=== PATIENT | female | born 1960 | race Caucasian/White ===

== ENCOUNTER → 2023-07-21 06:24 | Outpatient (REF) | payer BC, SELFPAY ==
[2023-07-21 07:15] LABS: % Eosinophils 4.5 % (0-6); % Immature Granulocytes 0.2 % (0-0.5); % Lymphocytes 22.9 % (20.5-51.1); % Monocytes 5.6 % (1.7-9.3); % Neutrophils 65.8 % (42.2-75.2); Absolute Basophils 0.1 10^3/uL (0-0.2); Absolute Eosinophils 0.4 10^3/uL (0-0.7); Absolute Lymphocytes 2.2 10^3/uL (1.2-3.4); Absolute Monocytes 0.6 10^3/uL (0.1-0.6); Absolute Neutrophils 6.4 10^3/uL (1.4-6.5); Hematocrit 41.1 % (37.0-47.0); Hemoglobin 13.7 g/dL (12.0-16.0); Mean Corp Hgb Conc. 33.3 g/dL (33.0-37.0); Mean Corpuscular Hgb 32.7 pg (27.0-31.0); Mean Corpuscular Volume 98.1 fL (81.0-99.0); Mean Platelet Volume 11.6 fL (7.4-10.4); Nucleated Red Blood Cells % 0 %; Platelet Count 205 10^3/uL (130-400); Red Blood Cell Count 4.19 10^6/uL (4.20-5.40); Red Cell Dist. Width 14.8 % (11.5-14.5); White Blood Cell Count 9.8 10^3/uL (4.8-10.8)
[2023-07-21 07:47] LABS: ALT (SGPT) 45 U/L (0-35); AST (SGOT) 38 U/L (14-36); Albumin 4.5 g/dl (3.5-5.0); Alkaline Phosphatase 70 U/L (38-126); Blood Urea Nitrogen 17 mg/dl (7-17); Carbon Dioxide 28 mmol/L (22-30); Chloride 105 mmol/L (98-107); Glucose 109 mg/dl (70-99); HDL Cholesterol 80 mg/dl; LDL Cholesterol, Calculated 64 mg/dl; Potassium 5.2 mmol/L (3.5-5.1); Sodium 138 mmol/L (135-145); Total Bilirubin 0.4 mg/dl (0.2-1.3); Total Cholesterol 156 mg/dl (50-199); Total Protein 7.4 g/dl (6.3-8.2); Triglyceride 63 mg/dl (10-149); Very Low Density Lipoprotein 12 mg/dl (0-30); eGFR > 60.00
[2023-07-21 08:57] LABS: TSH Reflex To Free T4 0.06 uIU/ml (0.47-4.68)
[2023-07-21 09:27] LABS: Free T4 1.83 ng/dl (0.78-2.19)
== END ==
LOC: REG 06:24
PROVIDERS: ATTENDING PHYSICIAN Internal Medicine; FAMILY PHYSICIAN Nurse Practitioner Family
DX: Z00.00 Encounter for general adult medical examination without abnormal findings (principal); E03.9 Hypothyroidism, unspecified; I10 Essential (primary) hypertension
CPT/HCPCS: 36415; 80053; 80061; 84439; 84443; 85025

== ENCOUNTER → 2023-09-14 06:21 | Outpatient (REF) | payer BC, SELFPAY ==
[2023-09-14 09:08] LABS: TSH Reflex To Free T4 1.19 uIU/ml (0.47-4.68)
[2023-09-14 09:24] LABS: ALT (SGPT) 52 U/L (0-35); AST (SGOT) 38 U/L (14-36); Albumin 4.3 g/dl (3.5-5.0); Alkaline Phosphatase 74 U/L (38-126); Blood Urea Nitrogen 13 mg/dl (7-17); Calcium 10.1 mg/dl (8.4-10.2); Carbon Dioxide 29 mmol/L (22-30); Chloride 105 mmol/L (98-107); Glucose 115 mg/dl (70-99); Potassium 5.1 mmol/L (3.5-5.1); Sodium 141 mmol/L (135-145); Total Bilirubin 0.6 mg/dl (0.2-1.3); Total Protein 7.4 g/dl (6.3-8.2); eGFR > 60.00
== END ==
LOC: REG 06:21
PROVIDERS: ATTENDING PHYSICIAN Nurse Practitioner Family
DX: R79.89 Other specified abnormal findings of blood chemistry (principal); E03.9 Hypothyroidism, unspecified
CPT/HCPCS: 36415; 80053; 84443

== ENCOUNTER 2024-06-17 09:06 | Inpatient (IN) | payer OTHER, SELFPAY ==
[2024-06-17] VITALS (16 sets, daily range): BP systolic 56–151; BP diastolic 70–98; BMI 23.5
[2024-06-17 06:05] LABS: % Basophils 0.7 % (0-2); % Eosinophils 2.2 % (0-6); % Immature Granulocytes 0.3 % (0-0.5); % Lymphocytes 11.9 % (20.5-51.1); % Monocytes 7.2 % (1.7-9.3); % Neutrophils 77.7 % (42.2-75.2); Absolute Basophils 0.1 10^3/uL (0-0.2); Absolute Eosinophils 0.3 10^3/uL (0-0.7); Absolute Lymphocytes 1.6 10^3/uL (1.2-3.4); Absolute Neutrophils 10.6 10^3/uL (1.4-6.5); Hematocrit 36.9 % (37.0-47.0); Hemoglobin 12.9 g/dL (12.0-16.0); Mean Corpuscular Volume 94.4 fL (81.0-99.0); Mean Platelet Volume 11.3 fL (7.4-10.4); Nucleated Red Blood Cells % 0 %; Platelet Count 335 10^3/uL (130-400); Red Blood Cell Count 3.91 10^6/uL (4.20-5.40); Red Cell Dist. Width 12.8 % (11.5-14.5); White Blood Cell Count 13.6 10^3/uL (4.8-10.8)
[2024-06-17 06:23] LABS: ALT (SGPT) 57 U/L (0-35); AST (SGOT) 40 U/L (14-36); Albumin 3.7 g/dl (3.5-5.0); Alkaline Phosphatase 86 U/L (38-126); Blood Urea Nitrogen 13 mg/dl (7-17); Calcium 9.5 mg/dl (8.4-10.2); Carbon Dioxide 26 mmol/L (22-30); Chloride 103 mmol/L (98-107); Estimated Creatinine Clearance 81 ml/min; Glucose 142 mg/dl (70-99); Lipase 33 U/L (23-300); Sodium 137 mmol/L (135-145); Total Bilirubin 0.8 mg/dl (0.2-1.3); Total Protein 6.8 g/dl (6.3-8.2); eGFR > 60.00
--- NOTE | 2024-06-17 06:24 | ED.GENMED ---
History of Present Illness
General
Chief Complaint: Abdominal Pain
Source: patient
Time Seen by Provider: 06/17/24 06:04
History of Present Illness
History of Present Illness:
63-year-old female presents to the emergency room complaining of left lower quadrant abdominal pain. Patient states she began feeling unwell about 4 days ago with nausea vomiting. This was followed by several lower abdominal pain which was mild
until this morning when the pain seemed to become more severe. She denies any fever but does endorse chills. She denies constipation or diarrhea. She has had diverticulitis in the past. She had a colonoscopy in 2020 which was incomplete due to
diverticula anatomy.
Past History
Past History
ED Past Medical History: Hypothyroidism and Other (Diverticulosis, cdiff)
ED Past Surgical History: Negative Bowel resection or Cholecystectomy
Social History
Tobacco: Non-smoker
Alcohol: None
Drug: None
Personal: Other
Living: with family
Employment: Employed
Family History
Family History: Other (no sick family members)
Phy Exam
Physical Exam
Physical Exam:
General: Awake, Alert, Oriented X3. No acute distress.
Vitals: unremarkable
Head: Atraumatic
Eyes: Pupils equal, EOMI
Throat: Airway intact, no exudates
Neck: Trachea midline
Lungs: Clear and equal b/l
Heart: Regular rate, no murmurs
Abd: Soft, tender palpation left lower quadrant, palpable mass suprapubic region, No pulsatile mass
Neuro: Nonfocal
Skin: Warm, dry, no rash
Extremities: pulses equal b/l, no edema
Course
Orders/Labs/Results
Orders:
Orders
06/17/24 05:48
EKG [Electrocardiogram (*1)] Urgent
Reason for Study: Abdominal Pain
06/17/24 05:49
EKG- Treatment ONCE
06/17/24 05:50
Complete Blood Count/With Diff Urgent
Comprehensive Metabolic Panel Urgent
Lipase Urgent
06/17/24 06:22
CT Abd/Pel (IV only)-DH only Urgent
Comment:
Reason For Exam: left lower abd pain, ? suprapubic mass
0.9% Sodium Chloride 1000 ml [Nss] 1,000 ml IV BOLUS
Ketorolac [Toradol] 15 mg IV NOW STA
06/17/24 07:57
Ampicillin/Sulbactam 3 G [Unasyn] 3 gm 0.9% Sodium Chloride 100 ml [Nss] 100 ml IV NOW
Abnormal Lab Results
06/17/24
05:50
WBC 13.6 H 10^3/uL
(4.8-10.8)
RBC 3.91 L 10^6/uL
(4.20-5.40)
Hct 36.9 L %
(37.0-47.0)
MCH 33.0 H pg
(27.0-31.0)
MPV 11.3 H fL
(7.4-10.4)
Absolute Neuts (auto) 10.6 H 10^3/uL
(1.4-6.5)
Absolute Monos (auto) 1.0 H 10^3/uL
(0.1-0.6)
Neutrophils % 77.7 H %
(42.2-75.2)
Lymphocytes % 11.9 L %
(20.5-51.1)
Glucose 142 H mg/dl
(70-99)
AST 40 H U/L
(14-36)
ALT 57 H U/L
(0-35)
06/17/24 05:50
06/17/24 05:50
Vital Signs
Initial and Last Documented VS:
Initial Vital Signs
Temp Pulse Resp BP Pulse Ox
97.4 F 75 16 142/93 99
06/17/24 05:17 06/17/24 05:17 06/17/24 05:17 06/17/24 05:17 06/17/24 05:17
Last Documented Vital Signs
Temp Pulse Resp BP Pulse Ox
97.8 F 72 18 143/92 99
06/17/24 05:37 06/17/24 08:25 06/17/24 08:25 06/17/24 08:25 06/17/24 08:25
MDM/Problems Addressed
Differential Diagnosis Includes:
Diverticulitis, colitis, kidney stone
MDM/Problems Addressed:
CT confirms the presence of diverticulitis. There is also evidence of microperforation on CT as well a suspicion for an abscess. Palpable mass in the suprapubic area correlates with the large uterine fibroid noted on CT scan this has been present
on previous imaging. Patient will require hospitalization for IV antibiotics given microperforate potential abscess. Colorectal surgery asked to see the patient. Patient will be admitted to the hospital service.
*Radiology
Radiology exam reviewed: other (Vision report reviewed)
*Pulse Oximetry
Patient hypoxic: no
*Critical Care Note
Total Time (30-74mins, 75-104mins- exclusive of procedures): Not Applicable
ED Attending Note
-
Portions of this chart may have been created with voice recognition software.� Occasional wrong word or��sound alike� substitutions may have occurred due to the inherent limitations of voice recognition software.
Discharge Plan
Departure
Patient Disposition: Admit
Date of Disposition: 06/17/24
Time of Disposition: 07:45
Presentation/result/management discussed w/ accepting MD/DO: Hospitalist
Condition: Fair
Discharge Problem:
Diverticulitis
Prescriptions:
No Action
therapeutic multivitamin Tablet
1 tab PO DAILY
levothyroxine [Synthroid] 75 mcg Tablet
75 mcg PO DAILY
Visbiome 112.5 billion cell Capsule
1 cap PO DAILY
Metamucil Gummy
1 gummy PO DAILYPRN PRN (Reason: CONSTIPATION)
Interventions
Interventions:
*Risk Screen - Suicide Last Done: 06/17/24 05:17
*General Assessment Last Done: 06/17/24 05:37
*Neglect/Abuse Screening Last Done: 06/17/24 05:17
*ED- Fall Risk Assessment Last Done: 06/17/24 05:17
*ED COVID-19 Vaccine History Last Done: 06/17/24 05:17
[facility] Assessment Last Done: 06/17/24 05:59
Discharge Date and Time
Print Language: CAMBODIAN
[2024-06-17] MEDS: TORADOL 15 MG IV (06:27)
[2024-06-17] MEDS: NSS 1000 IV (06:28)
[2024-06-17] MEDS: UNASYN IV ×3 (08:23→21:18)
--- NOTE | 2024-06-17 08:35 | HPS.HSE ---
Family Physician
-
Family Physician: ROMAINE Mai
Chief Complaint
-
Left lower quadrant abdominal pain, chills
History of Present Illness
Patient is 63-year-old female with past medical history of recurrent diverticulitis, uterine fibroid, hypothyroidism, history of bilateral mild hydroureteronephrosis, presumed hypertension, history of C. difficile colitis came to ER with new onset
of left lower quadrant abdominal pain starting earlier from Thursday. Pain deep-seated nonradiating. Associated with episode of vomiting on Thursday. Patient although did not confirm constipation does state that she requires to strain and has started
taking Metamucil to help with the bowel movements. No reported recent diarrhea. Patient had some chills and subjective fever. In patient had elective colonoscopy which was not successful due to tortuous colon, patient underwent virtual
colonoscopy which showed some polyps/diverticular disease. Patient have not followed up with colorectal surgeon in the past. Per patient have seen Dr. Smith/infectious disease in office 1 time and was given IV Bezlotoxumab infusion. Although
patient stated this being for diverticulitis this is a treatment for C. difficile colitis.
Patient denies any other associated problems of dizziness/generalized weakness/chest pain/shortness of breath/cough/dysuria.
Medical History
Past Medical History
Past Medical History: Reports Other
Additional Past Medical History:
recurrent diverticulitis, uterine fibroid, hypothyroidism, history of bilateral mild hydroureteronephrosis, presumed hypertension, history of C. difficile colitis
Past Surgical History: Reports Other
Social History
Tobacco: Smoker (on/off)
Alcohol: Occasional
Drug: None
Living: Alone
Family History
Family History: Not pertinent
Allergies / Home Medications
Allergies reflects when Allergies were last updated in [facility].
Home Medications with original date entered in [facility]
Allergy/Medication List:
Allergies
Allergy/AdvReac Type Severity Reaction Status Date / Time
No Known Allergies Allergy Verified 06/17/24 05:17
Home Medications
therapeutic multivitamin 1 tab PO DAILY Supplement 11/05/22
Lactobac no.2-Bifidobac no.1-S. thermo 112.5 billion cell capsule (Visbiome) 1 cap PO DAILY 06/17/24
Metamucil Gummy 1 gummy PO DAILYPRN PRN CONSTIPATION 06/17/24
levothyroxine 75 mcg tablet (Synthroid) 75 mcg PO DAILY 06/17/24
Review of Systems
-
A 12 point ROS was completed and negative except as noted: Yes
Physical Exam
Vital Signs
Vital Signs
Temp Pulse Resp BP Pulse Ox
97.8 F 72 18 143/92 99
06/17/24 05:37 06/17/24 08:25 06/17/24 08:25 06/17/24 08:25 06/17/24 08:25
Physical Exam
General: Well Developed, Well Nourished and No Apparent Distress
HEENT: NormoCephalic, Moist mucous membranes and Atraumatic
Respiratory: Clear
Cardiac: S1/S2 and Regular Rhythm; No Murmur or Rub
GI: Soft, Non Distended, Normal Bowel Sounds and Tender (LLQ); No Organomegaly
Rectal: Deferred by Provider
Musculoskeletal: No Clubbing, No Cyanosis and No Edema
Skin: No Rash
Neuro: Nonfocal/grossly intact
Laboratory Results
-
06/17/24 05:50
06/17/24 05:50
Laboratory Results
Total Bilirubin 0.8 mg/dl (0.2-1.3) 06/17/24 05:50
AST 40 U/L (14-36) H 06/17/24 05:50
ALT 57 U/L (0-35) H 06/17/24 05:50
Alkaline Phosphatase 86 U/L (38-126) 06/17/24 05:50
Lipase 33 U/L (23-300) 06/17/24 05:50
Impression/Plan
-
CT a/p
BOWEL: Unremarkable appearance of the small bowel without obstruction. Unremarkable terminal ileum and appendix. Fairly extensive diverticular disease within the left colon with findings compatible with acute severe diverticulitis within the sigmoid
with several extra luminal gas and fluid collections within the pelvis, including a probable intramural abscess within the left pelvis measuring up to 3.9 cm (image 65) and a 3.4 x 2.3 cm collection within the posterior right pelvis within the
cul-de-sac. There is a prominent gas containing collection along the anterior margin of the sigmoid abutting the uterus.
PERITONEUM: See above. No free air appreciated.
REPRODUCTIVE: Again seen is enlarged uterus containing a large degenerated/partially calcified fibroid.
BLADDER: Not well-visualized but mildly decompressed. Left ureteral vesicle junction not well-visualized.

1. Complicated sigmoid diverticulitis
History of recurrent diverticulitis
-Patient came in with ongoing left lower quadrant pain some chills for for 5 days
-History of previous recurrent diverticulitis, have not been evaluated by CRS in the past
-CT abdomen pelvis showing diffuse diverticulitis with multiple extraluminal small pockets of air suggestive of microperforation. Small abscess with largest measuring 3.4 x 2.3 cm
-Patient got IV Unasyn in the ER continue. Will escalate to Merrem if clinically required
-Colorectal surgery has been consulted by ER physician, await for further input
-Maintain on clear liquid diet/IV fluids/antiemetics for now
2. History of C. difficile colitis
-Patient have undergone tapering dose of oral vancomycin course followed by bezlotoxumab infusion in
-Maintain on probiotic and oral vancomycin 125 mg daily for prophylaxis
3. Elevated blood pressure
-No formal diagnosis of essential hypertension
-Will start on small dose of Norvasc while here
4. Uterine fibroid
-Large uterine fibroid visible on imaging, present from previous imaging as well
-Will require outpatient follow-up with gynecology in the office
-Patient denies of having any blood PV
5. Hypothyroidism
-Maintain on levothyroxine 75 mcg daily
DVT PPX - scd
Full code
Total time spent : 78 mins
I personally saw and examined the patient.
I have reviewed all diagnostic interpretations and treatment plans as written.
Time includes patient management by me, time spent at the patients bedside, time to review lab and imaging results, discussing patient care, documentation in the medical record, and time spent with the family or caregiver and discussing care plan
with RN/Consultants.
[2024-06-17] MEDS: ROXICODONE 5 MG PO (11:04)
--- NOTE | 2024-06-17 11:46 | CON.CRS ---
Addendum entered and electronically signed by Casper Hernandez MD 06/17/24 14:26:
In addition, IR was consulted for potential drain placement. The left-sided fluid collection is not accessible but apparently the right side one is. This is being worked on currently as we speak. Also important note that the patient does have a
prior history of C. difficile colitis which makes her at risk for this occurring again going forward.
Original Note:
Consultation
-
Date/Time Consultation Requested: 06/17/2024, 07:30
Date/Time Consultation Performed: 06/17/2024, 09:00
Requesting Provider: Jeanne Perez MD
Performing Provider: Casper Hernandez MD
Reason for Consultation: diverticulitis
Medical History
-
Chief Complaint: Abdominal pain
History of Present Illness:
Discontinue Miguel 63-year-old female presents to [facility] complaining of left lower quadrant abdominal pain that started 5 days ago. The patient has a past medical history of recurrent diverticulitis as well as a history of a C. difficile
colitis. The patient states she has had probably about 6 attacks of diverticulitis over the past 10 years. She had been admitted to the hospital in 2022 for acute diverticulitis in the descending and proximal sigmoid colon as well as E. coli
sepsis secondary to UTI. She was discharged on a course of antibiotics and was seen by ID. The following month she was readmitted for C. difficile colitis and was given a 14-day course of enteral vancomycin. She states that this left lower
quadrant pain that started 5 days ago is similar to her attack of diverticulitis in the past. She states she had some chills at home but did not take her temperature. Her bowel movements are normal for her. She generally takes Metamucil Gummies
at home every day and is not on any blood thinners. CT of the abdomen and pelvis shows severe diverticulitis in the sigmoid colon with several extraluminal collections in the pelvis including a probable intramural abscess in the left pelvis
measuring up to 3.9 cm and a 3.4 x 2.3 cm collection in the posterior right pelvis within the cul-de-sac. She also has an enlarged uterus containing a large degenerated/partially calcified fibroid. Her last CAT scan at [facility] was in July
2022 which showed diffuse wall thickening of the colon from the splenic flexure to the rectum most concerning for colitis as well as diverticulosis. CT scan in June 2022 showed new mild early descending colon and proximal sigmoid colon acute
diverticulitis.
She underwent a colonoscopy in [address] Mejia but this was incomplete due to a torturous sigmoid colon. She then underwent a virtual colonoscopy which was negative for any polyps. Her WBC on admission was 13.6. She was started on IV Unasyn.
Given all of the above, we have been consulted for further surgical opinion.
Past Medical History
Past Medical History: Other (recurrent diverticulitis, uterine fibroid, hypothyroidism, history of bilateral mild hydroureteronephrosis, presumed hypertension, history of C. difficile colitis)
Past Surgical History: None
Social History
Tobacco: Non-Smoker
Alcohol: None
Drug: None
Family History
Family History: Reviewed & Not Pertinent
Allergies / Home Medications
Allergy/AdvReac Type Severity Reaction Status Date / Time
No Known Allergies Allergy Verified 06/17/24 05:17
�Medication �Instructions �Recorded �Confirmed �Type
therapeutic multivitamin 1 tab PO DAILY Supplement 11/05/22 06/17/24 History
Lactobac no.2-Bifidobac no.1-S. 1 cap PO DAILY 06/17/24 06/17/24 History
thermo 112.5 billion cell capsule
(Visbiome)
Metamucil Gummy 1 gummy PO DAILYPRN PRN 06/17/24 06/17/24 History
CONSTIPATION
levothyroxine 75 mcg tablet 75 mcg PO DAILY 06/17/24 06/17/24 History
(Synthroid)
Review of Systems
-
History Source: Patient
Abdomen/GI: Abdominal Pain
A 10 point review of systems was completed, and was negative except as per HPI.
Physical Exam
Vital Signs
Temp 97.8 F 06/17/24 05:37
Pulse 59 06/17/24 11:00
Resp Rate 18 06/17/24 11:00
Blood pressure 148/98 06/17/24 11:00
SaO2 99 06/17/24 11:00
06/16/24 06/17/24 06/18/24
06:59 06:59 06:59
Actual Weight 62.1 kg
Body Mass Index (BMI) 23.5
Lab Results / Allergies
06/17/24 05:50
06/17/24 05:50
WBC 13.6 10^3/uL (4.8-10.8) H 06/17/24 05:50
Hgb 12.9 g/dL (12.0-16.0) 06/17/24 05:50
Hct 36.9 % (37.0-47.0) L 06/17/24 05:50
Plt Count 335 10^3/uL (130-400) 06/17/24 05:50
Abs Immat Gran (auto) 0.0 10^3/uL (0-0.05) 06/17/24 05:50
Neutrophils % 77.7 % (42.2-75.2) H 06/17/24 05:50
Allergy/AdvReac Type Severity Reaction Status Date / Time
No Known Allergies Allergy Verified 06/17/24 05:17
Physical Exam
General: Well Developed, Well Nourished and No Apparent Distress
GI: Soft and Tender (bilateral, moderate)
Skin: Warm and Dry
Neuro: AO x 3
Psych: Calm
Data Reviewed
-
CT Scan: Image Personally Visualized and interpreted, Report Reviewed by me and Discussed with Patient
Labs: Labs Reviewed by me, Discussed with Physician and Discussed with Patient
Old Records: Reviewed
Assessment / Plan
-
Assessment: 63-year-old female with a history of multiple prior attacks of diverticulitis presents to [facility] with left lower quadrant pain with a white count of 13.6 and severe diverticulitis in the sigmoid colon with extraluminal collections
Plan:
-No plans for urgent surgery at this time. If she were to worsen she will require a colectomy colostomy creation
-Will consult IR for possible drainage of the right lower quadrant collection
-Continue IV antibiotics
-Patient is currently n.p.o., remain n.p.o. for now
-Continue IV fluids
-Will consult Dr. Iglesias given her enlarged uterus for surgical planning in the future
[2024-06-17] MEDS: LR 1000 IV (12:44)
--- NOTE | 2024-06-17 12:59 | CONS.URO ---
Medical History
History of Present Illness
63 yo woman with uterine fibroids admitted for diverticulitis.
Patient reports that she has a longstanding history of uterine fibroids.
Denies any postmenopausal vaginal bleeding or pelvic pain.
She does have a history of heavy abnormal uterine bleeding prior to menopause.
She denies any history of myomectomy or uterine fibroid embolization.
Denies urinary incontinence or obstructive voiding symptoms.
Denies any neurologic symptoms associated with her pelvis or perineum.
Denies significant abnormal Pap smear history
Denies prior ovarian surgery or ovarian masses.
Family History
Family History: Reviewed & Not Pertinent
Allergies/Home Medications
Allergies
Allergy/AdvReac Type Severity Reaction Status Date / Time
No Known Allergies Allergy Verified 06/17/24 05:17
Home Medications
�Medication �Instructions �Recorded �Confirmed �Type
therapeutic multivitamin 1 tab PO DAILY Supplement 11/05/22 06/17/24 History
Lactobac no.2-Bifidobac no.1-S. 1 cap PO DAILY probiotic 06/17/24 06/17/24 History
thermo 112.5 billion cell capsule
(Visbiome)
Metamucil Gummy 1 gummy PO DAILYPRN PRN 06/17/24 06/17/24 History
constipation
levothyroxine 75 mcg tablet 75 mcg PO DAILY hypothyroidism 06/17/24 06/17/24 History
(Synthroid)
Review of Systems
-
A 12 point Review of Systems was completed except as noted: Yes
Constitutional: Reports No Symptoms
EENT: Reports No Symptoms
Respiratory: Reports No Symptoms
: Reports No Symptoms
Musculoskeletal: Reports No Symptoms
Skin: Reports No Symptoms
Neurological: Reports No Symptoms
Hematologic/Lymphatic: Reports No Symptoms
Psych: Reports No Symptoms
Physical Exam
Vital Signs
Vital Signs
Temp Pulse Resp BP Pulse Ox
98.1 F 70 16 135/81 98
06/17/24 12:40 06/17/24 12:40 06/17/24 12:40 06/17/24 12:40 06/17/24 12:40
Lab / Testing Results
Laboratory Results
06/17/24 05:50
06/17/24 05:50
Physical Exam
Abdominal exam revealed a soft nontender nondistended abdomen, able to palpate uterine fundus and nontender
exam demonstrated a large uterine fundus.
Assessment / Plan
-
64-year-old postmenopausal woman admitted with diverticulitis for medical management and reported to have an enlarged uterus with uterine fibroids.
Uterine Fibroids:
-I personally reviewed her CT scan images that demonstrated an enlarged uterus with uterine fibroids. The uterine fibroids are calcified likely due to her postmenopausal status. I reviewed with the patient common symptoms of uterine fibroids and
that these typically will harden and shrink after menopause however patient continues to have an enlarged uterus. I counseled the patient that a hysterectomy may be be needed in order to access her bowels due to the infection that is present. If
the patient is to be taken to the operating room with colorectal surgery then I will be available to assist and may require hysterectomy if access to the bowel is not able to be accomplished due to the large size of the uterus.
-I reviewed with the patient the risk of an open procedure versus a robotic procedure. I reviewed with the patient the risk of lower urinary tract injury, blood transfusion, hematoma, surgical site infection and wound infection.
Mj Iglesias MD
[2024-06-17] MEDS: SYNTHROID PO ×2 (13:11→13:17)
[2024-06-17] MEDS: FIRVANQ 125 MG PO (13:12)
[2024-06-17] MEDS: MIRALAX PO (13:17)
[2024-06-17] MEDS: ZOFRAN 4 MG IV (13:39)
[2024-06-18] MEDS: LR 1000 IV ×2 (02:51→19:44)
[2024-06-18] MEDS: UNASYN IV ×4 (02:51→19:44)
[2024-06-18 05:55] LABS: Hemoglobin 11.4 g/dL (12.0-16.0); Mean Corp Hgb Conc. 34.5 g/dL (33.0-37.0); Mean Corpuscular Volume 95.7 fL (81.0-99.0); Mean Platelet Volume 11.3 fL (7.4-10.4); Platelet Count 286 10^3/uL (130-400); Red Blood Cell Count 3.45 10^6/uL (4.20-5.40); Red Cell Dist. Width 12.8 % (11.5-14.5); White Blood Cell Count 10.5 10^3/uL (4.8-10.8)
[2024-06-18 06:03] LABS: Blood Urea Nitrogen 9 mg/dl (7-17); Calcium 9.1 mg/dl (8.4-10.2); Carbon Dioxide 30 mmol/L (22-30); Chloride 100 mmol/L (98-107); Estimated Creatinine Clearance 69 ml/min; Glucose 100 mg/dl (70-99); Potassium 4.1 mmol/L (3.5-5.1); Sodium 136 mmol/L (135-145); eGFR > 60.00
[2024-06-18] MEDS: SYNTHROID 75 MCG PO (06:25)
[2024-06-18 07:25] VITALS: BP 124/77
[2024-06-18] MEDS: FIRVANQ 125 MG PO (09:07)
[2024-06-18] MEDS: VISBIOME 2 CAP PO (09:10)
[2024-06-18] MEDS: MIRALAX PO (09:18)
[2024-06-18] MEDS: ZOFRAN 4 MG IV ×2 (09:18→16:54)
[2024-06-18] MEDS: ROXICODONE 5 MG PO (11:35)
--- NOTE | 2024-06-18 11:57 | W.PN.HOSP.TC ---
Today's Communication/Plan
-
diet per CRS
continue current abx
f/u ID input
F/u abscess culture report
Assessment / Plan
Assessment / Plan
CT a/p
BOWEL: Unremarkable appearance of the small bowel without obstruction. Unremarkable terminal ileum and appendix. Fairly extensive diverticular disease within the left colon with findings compatible with acute severe diverticulitis within the sigmoid
with several extra luminal gas and fluid collections within the pelvis, including a probable intramural abscess within the left pelvis measuring up to 3.9 cm (image 65) and a 3.4 x 2.3 cm collection within the posterior right pelvis within the
cul-de-sac. There is a prominent gas containing collection along the anterior margin of the sigmoid abutting the uterus.
PERITONEUM: See above. No free air appreciated.
REPRODUCTIVE: Again seen is enlarged uterus containing a large degenerated/partially calcified fibroid.
BLADDER: Not well-visualized but mildly decompressed. Left ureteral vesicle junction not well-visualized.

1. Complicated sigmoid diverticulitis
History of recurrent diverticulitis
-Patient came in with ongoing left lower quadrant pain some chills for for 5 days
-History of previous recurrent diverticulitis, have not been evaluated by CRS in the past
-CT abdomen pelvis showing diffuse diverticulitis with multiple extraluminal small pockets of air suggestive of microperforation. Small abscess with largest measuring 3.4 x 2.3 cm
-Patient currently on IV Unasyn, ID consulted for further help
-Colorectal surgery evaluated and consulted MICHAEL, who was able to drain 15 cc yellowish purulent fluid from right pelvic abscess
-Fluid culture Gram stain and culture report pending
-Maintain on clear liquid diet/IV fluids/antiemetics for now
2. History of C. difficile colitis
-Patient have undergone tapering dose of oral vancomycin course followed by bezlotoxumab infusion in 23
-Maintain on probiotic and oral vancomycin 125 mg daily for prophylaxis
3. Elevated blood pressure
-better today, monitor.
4. Uterine fibroid
-Large uterine fibroid visible on imaging, present from previous imaging as well
-Will require outpatient follow-up with gynecology in the office
-Patient denies of having any blood PV
-Patient evaluated by gynecological urologist, patient will likely require simultaneous uterine fibroid removal if needed to go for sigmoid resection.
5. Hypothyroidism
-Maintain on levothyroxine 75 mcg daily
DVT PPX - scd
Full code
Total time spent : 53 mins
Anticipated Discharge: > 48 hours
Subjective/Interval History
-
Date of Service: June 18, 2024
Have some lower abdominal discomfort
No nausea or vomiting
Afebrile overnight
Objective Data
-
Labs:
Laboratory Results
06/18/24
05:13
WBC 10.5
Hgb 11.4 L
Hct 33.0 L
Plt Count 286
Sodium 136
Potassium 4.1
Chloride 100
Carbon Dioxide 30
BUN 9
Creatinine 0.7
Glucose 100 H
Calcium 9.1
Vital Signs:
Vital Signs
Temp Pulse Resp BP Pulse Ox
98.2 F 67 14 124/77 99
06/18/24 07:25 06/18/24 07:25 06/18/24 07:25 06/18/24 07:25 06/18/24 07:25
I&O
06/17/24 06/18/24 06/19/24
06:59 06:59 06:59
Intake Total 50 / 50
Balance 50 / 50
Review of Systems
-
Respiratory: Reports No Symptoms
Cardiac: Reports No Symptoms
Abdomen/GI: Reports Abdominal Pain; Denies Nausea or Vomiting
Physical Exam
-
General: Comfortable
HEENT: Negative Oxygen
Respiratory: Clear to Auscultation
Cardiac: Regular Rhythm and S1/S2; Negative Murmur or Rub
GI: Soft, Nondistended, Normal Bowel Sounds and Tender (Lower abd)
Musculoskeletal: No Edema
Neuro: Awake, Alert, Oriented, No Motor Deficits and Nonfocal/Grossly Intact
Psych: Calm
--- NOTE | 2024-06-18 12:32 | CON.ID ---
Consultation
-
Date/Time Consultation Requested: 06/17/2024 1431
Date/Time Consultation Performed: 06/18/2024 1220
Requesting Provider: Dr. Perez
Performing Provider: Dr. Garrison
Reason for Consultation: Acute diverticulitis; Hx C. difficile
Chief Complaint / Past History
History of Present Illness
Agatha Kaplan is a 63-year-old female being evaluated at the request of Dr. Perez regarding acute diverticulitis and a prior history of C. difficile. History is obtained from chart review, along with patient.
The patient has a significant past medical history of diverticulosis, and reports she was in her usual state of health until approximately 1 week ago, when she began to develop left lower quadrant discomfort. Pain increased over the week, and she
finally came to the emergency room 2 days ago secondary to a rapid increase in discomfort. She admits to some nausea and vomiting just prior to presentation. She denies any diarrhea prior to admission. She does admit to some decreased oral intake
over the 24 hours prior to admission. She admitted to occasional chills, but denied any fevers.
Workup in the emergency room revealed severe diverticulitis in the sigmoid colon. She was found to have a leukocytosis, and was placed on empiric antibiotics (Unasyn). She has a remote history of C. difficile approximately 2 years ago, but in the
interim has not had any recurrence.
Past History
Additional Past Medical History:
Hypothyroidism
Diverticulosis
Additional Past Surgical History:
Eye surgery
Allergy History:
No Known Allergies Allergy (Verified 06/17/24 05:17)
Medications Reviewed: Yes
Current Antibiotics:
Unasyn 3 g IV every 6 hours
Vancomycin 125 mg p.o. every 24 hours
Social History
Tobacco: Non-Smoker
Alcohol: None
Drug: None
Employment: Employed
Family History
Family History: Not Pertinent
Review of Systems
Vital Signs
Temp Pulse Resp BP Pulse Ox
98.2 F 67 14 124/77 99
06/18/24 07:25 06/18/24 07:25 06/18/24 07:25 06/18/24 07:25 06/18/24 07:25
Physical Exam
Physical Exam
Constitutional: No Acute Distress, Comfortable, Acutely Ill and Non-toxic
Eyes: Pupils Equal, Pupils Round, No Conjunctival Hemorrhage and Sclera Anicteric
Oral: No Thrush and No Ulcers
Cardiovascular: Regular Rate and S1/S2; Negative S3/S4
Pulmonary: Clear; Negative Wheezes, Rales or Rhonchi
Gastrointestinal: Soft, Tender (LLQ), Non Distended, Decreased Bowel Sounds, No Rebound and No Guarding
Extremities: Negative Edema, Cyanosis or Erythema
Skin: Warm and Dry
Neurological: Awake and Alert
Psychological: Calm
.
Lab / Diagnostic Study Results
06/18/24 05:13
06/18/24 05:13
Abs Immat Gran (auto) 0.0 10^3/uL (0-0.05) 06/17/24 05:50
Absolute Neuts (auto) 10.6 10^3/uL (1.4-6.5) H 06/17/24 05:50
Absolute Lymphs (auto) 1.6 10^3/uL (1.2-3.4) 06/17/24 05:50
Absolute Monos (auto) 1.0 10^3/uL (0.1-0.6) H 06/17/24 05:50
Absolute Basos (auto) 0.1 10^3/uL (0-0.2) 06/17/24 05:50
Immature Gran % 0.3 % (0-0.5) 06/17/24 05:50
Neutrophils % 77.7 % (42.2-75.2) H 06/17/24 05:50
Lymphocytes % 11.9 % (20.5-51.1) L 06/17/24 05:50
Monocytes % 7.2 % (1.7-9.3) 06/17/24 05:50
Eosinophils % 2.2 % (0-6) 06/17/24 05:50
Basophils % 0.7 % (0-2) 06/17/24 05:50
Microbiology Results
Micro:
06/17/24 17:55 Body Fluid Culture - Pending
Fluid Gram Stain - Preliminary
Imaging:
06/17/2024 CT abdomen/pelvis with contrast: Findings compatible with severe diverticulitis within the sigmoid colon, with several extraluminal collections identified. There is mild bilateral hydronephrosis, without definite stones identified.
Unchanged enlarged myomatous uterus containing a large degenerated/partially calcified fibroid. Please see full dictation for additional detail.
Assessment / Plan
Acute diverticulitis with abscess formation
Leukocytosis
Hx C. difficile
- No symptomatology prior to admission
Hypothyroidism
Diverticulosis
Recommendations:
Continue with Unasyn.
Although history of C. difficile is somewhat remote, agree with prophylactic vancomycin. Continue with current dose of enteral vanco.
Monitor white count and temperature curve.
Await clinical improvement.
Diet being advanced.
--- NOTE | 2024-06-18 13:53 | W.PN.GS2 ---
Addendum entered and electronically signed by Stanislaw Bhatti MD 06/18/24 16:10:
I saw and examined the patient.
The Pit Worker Power Shovel's note was reviewed and I agree with the note.
Comment: Improving. Remains ttp to LLQ. OK to trial CLD. Cont abx
Original Note:
Today's Communication / Plan
-
CLD, ADAT
Assessment / Plan
-
63 yo female with h/o multiple diverticular attacks presenting with 5 days of left sided abd pain with CT demonstrating sigmoid diverticulitis with some small fluid collections.
S/P IR aspiration with nonpurulent fluid withdrawn on 06/18/23, ?cystic. No abscess present.
Cx from IR aspiration pending
AFVSS
Leukocytosis resolved on IV ABX
INGOT PASSER following with us as hysterectomy my be needed if surgery required urgently, thus far she is improving on IV ABX. No plans for emergent surgery at this time.
--ABX as per ID
--Trial of clears, ok to advance diet as tolerated
--Analgesics/antiemetics prn
--Medical management as per primary team
Subjective Data
-
Date of Service: June 18, 2024
Patient seen and examined at bedside. Denies n/v. Eager to try food. Passing flatus. Taking antiemetics with narcotics to preempt any nausea from these drugs. Pain continues to improve.
Objective Data
-
Intake and Output
06/17/24 06/18/24 06/19/24
06:59 06:59 06:59
Intake Total 50 / 50
Balance 50 / 50
Intake:
IV piggybacks 50 / 50
Other:
Number of approximated MODERATE 3 3
amounts of urine
Vital Signs
Temp Pulse Resp BP Pulse Ox
98.2 F 67 14 124/77 99
06/18/24 07:25 06/18/24 07:25 06/18/24 07:25 06/18/24 07:25 06/18/24 07:25
Lab Results
06/18/24 05:13
06/18/24 05:13
Calcium 9.1 mg/dl (8.4-10.2) 06/18/24 05:13
Total Bilirubin 0.8 mg/dl (0.2-1.3) 06/17/24 05:50
AST 40 U/L (14-36) H 06/17/24 05:50
ALT 57 U/L (0-35) H 06/17/24 05:50
Alkaline Phosphatase 86 U/L (38-126) 06/17/24 05:50
Total Protein 6.8 g/dl (6.3-8.2) 06/17/24 05:50
Albumin 3.7 g/dl (3.5-5.0) 06/17/24 05:50
Physical Exam
-
NAD
ABD soft, tender from the LLQ into the pelvis, ND
[2024-06-18 15:19] VITALS: BP 131/65
[2024-06-18] MEDS: ULTRAM 25 MG PO (20:54)
[2024-06-18 23:00] VITALS: BP 141/74
[2024-06-19] MEDS: UNASYN IV ×4 (00:55→21:06)
[2024-06-19] MEDS: TYLENOL 650 MG PO ×2 (05:56→22:08)
[2024-06-19] MEDS: SYNTHROID 75 MCG PO (05:56)
[2024-06-19] MEDS: ZOFRAN 4 MG IV (05:59)
[2024-06-19 06:03] LABS: Hematocrit 35.7 % (37.0-47.0); Hemoglobin 12.2 g/dL (12.0-16.0); Mean Corp Hgb Conc. 34.2 g/dL (33.0-37.0); Mean Corpuscular Hgb 32.8 pg (27.0-31.0); Mean Platelet Volume 11.1 fL (7.4-10.4); Platelet Count 298 10^3/uL (130-400); Red Blood Cell Count 3.72 10^6/uL (4.20-5.40); Red Cell Dist. Width 12.5 % (11.5-14.5)
[2024-06-19 06:40] LABS: Blood Urea Nitrogen 6 mg/dl (7-17); Calcium 9.1 mg/dl (8.4-10.2); Carbon Dioxide 31 mmol/L (22-30); Chloride 95 mmol/L (98-107); Estimated Creatinine Clearance 81 ml/min; Glucose 106 mg/dl (70-99); Potassium 4.1 mmol/L (3.5-5.1); Sodium 136 mmol/L (135-145); eGFR > 60.00
[2024-06-19 07:38] VITALS: BP 155/77
[2024-06-19] MEDS: FIRVANQ 125 MG PO (09:44)
[2024-06-19] MEDS: MIRALAX 17 GRAMS PO (09:44)
[2024-06-19] MEDS: VISBIOME 2 CAP PO (09:45)
--- NOTE | 2024-06-19 12:09 | CM ---
CM following re: d/c planning.
CM met with pt and brother at bedside to complete IA.
Pt resides alone, independent with mobility and ADLs.
She denies DME or VN.
Her plan is to stay with her brother in [place] after the hospitalization for additional support.
She does not believe she will need VN.
PCP is Chelsea Edmond, [place], and pharmacy [facility] in [place].
Pt requests meds to go to [facility] in [place] at time of d/c, as this is closer to brother's home.
Pharmacy added.
Goal: home with brother, no additional needs.
--- NOTE | 2024-06-19 12:45 | W.PN.HOSP.TC ---
Today's Communication/Plan
-
continue abx
f/u abscess cx report
start on losartan 25mg
Assessment / Plan
Assessment / Plan
CT a/p
BOWEL: Unremarkable appearance of the small bowel without obstruction. Unremarkable terminal ileum and appendix. Fairly extensive diverticular disease within the left colon with findings compatible with acute severe diverticulitis within the sigmoid
with several extra luminal gas and fluid collections within the pelvis, including a probable intramural abscess within the left pelvis measuring up to 3.9 cm (image 65) and a 3.4 x 2.3 cm collection within the posterior right pelvis within the
cul-de-sac. There is a prominent gas containing collection along the anterior margin of the sigmoid abutting the uterus.
PERITONEUM: See above. No free air appreciated.
REPRODUCTIVE: Again seen is enlarged uterus containing a large degenerated/partially calcified fibroid.
BLADDER: Not well-visualized but mildly decompressed. Left ureteral vesicle junction not well-visualized.

1. Complicated sigmoid diverticulitis
History of recurrent diverticulitis
-Patient came in with ongoing left lower quadrant pain some chills for for 5 days
-History of previous recurrent diverticulitis, have not been evaluated by CRS in the past
-CT abdomen pelvis showing diffuse diverticulitis with multiple extraluminal small pockets of air suggestive of microperforation. Small abscess with largest measuring 3.4 x 2.3 cm
-Patient currently on IV Unasyn, ID following and help appreciated.
-Colorectal surgery evaluated and consulted MICHAEL, who was able to drain 15 cc yellowish purulent fluid from right pelvic abscess
-Fluid culture Gram stain and culture report NTD. continue follow.
-Diet advancement per surgery.
2. History of C. difficile colitis
-Patient have undergone tapering dose of oral vancomycin course followed by bezlotoxumab infusion in
-Maintain on probiotic and oral vancomycin 125 mg daily for prophylaxis
3. Elevated blood pressure
-fluctuating, again high today
-starting losartan 25mg/d
4. Uterine fibroid
-Large uterine fibroid visible on imaging, present from previous imaging as well
-Will require outpatient follow-up with gynecology in the office
-Patient denies of having any blood PV
-Patient evaluated by gynecological urologist, patient will likely require simultaneous uterine fibroid removal if needed to go for sigmoid resection.
5. Hypothyroidism
-Maintain on levothyroxine 75 mcg daily
DVT PPX - scd
Full code
Anticipated Discharge: 24 - 48 hours
Subjective/Interval History
-
Date of Service: June 19, 2024
Lower abdominal pain/discomfort is better
Patient is afebrile
No other issues reported overnight
Objective Data
-
Labs:
Laboratory Results
06/19/24
05:37
WBC 13.0 H
Hgb 12.2
Hct 35.7 L
Plt Count 298
Sodium 136
Potassium 4.1
Chloride 95 L
Carbon Dioxide 31 H
BUN 6 L
Creatinine 0.6
Glucose 106 H
Calcium 9.1
Vital Signs:
Vital Signs
Temp Pulse Resp BP Pulse Ox
97.8 F 54 17 155/77 97
06/19/24 07:38 06/19/24 07:38 06/19/24 07:38 06/19/24 07:38 06/19/24 07:38
I&O
06/18/24 06/19/24 06/20/24
06:59 06:59 06:59
Intake Total 50 / 50 140 / 140
Balance 50 / 50 140 / 140
Review of Systems
-
Respiratory: Reports No Symptoms
Cardiac: Reports No Symptoms
Abdomen/GI: Reports No Symptoms
Physical Exam
-
General: Comfortable
HEENT: Negative Oxygen
Respiratory: Clear to Auscultation
Cardiac: Regular Rhythm and S1/S2; Negative Murmur or Rub
GI: Soft, Nontender, Nondistended and Normal Bowel Sounds
Musculoskeletal: No Edema
Neuro: Awake, Alert, Oriented, No Motor Deficits and Nonfocal/Grossly Intact
Psych: Calm
--- NOTE | 2024-06-19 13:53 | W.PN.GS2 ---
Addendum entered and electronically signed by Stanislaw Bhatti MD 06/19/24 15:05:
I saw and examined the patient.
The Planer Offbearer's note was reviewed and I agree with the note.
Comment: Pain improved. less ttp on exam. Adv to fld
Original Note:
Today's Communication / Plan
-
full liquids
Assessment / Plan
-
63 yo female with h/o multiple diverticular attacks presenting with 5 days of left sided abd pain with CT demonstrating sigmoid diverticulitis with some small fluid collections.
SHREDDED FILLER [employer] MAKER MACHINE following with us as hysterectomy my be needed if surgery required urgently, thus far she is improving on IV ABX. No plans for emergent surgery at this time.
S/P IR aspiration with nonpurulent fluid withdrawn on 06/18/23, ?cystic. No abscess present. CX with NGTD
Exam improving
AFVSS
Leukocytosis present, slight increase from yesterday
--ABX as per ID
--Advance to FLD
--Trend labs/exams
--Analgesics/antiemetics prn
--Medical management as per primary team
Subjective Data
-
Date of Service: June 19, 2024
Patient seen and examined at bedside with Dr. Bhatti. Denies nausea/vomiting but has been taking antiemetics as narcotics do give her nausea. Pain present but some improvement. Tolerating clears. Passing flatus.
Objective Data
-
Intake and Output
06/18/24 06/19/24 06/20/24
06:59 06:59 06:59
Intake Total 50 / 50 140 / 140
Balance 50 / 50 140 / 140
Intake:
Oral fluids 140 / 140
IV piggybacks 50 / 50
Other:
Number of approximated MODERATE 3 4
amounts of urine
Vital Signs
Temp Pulse Resp BP Pulse Ox
97.8 F 54 17 155/77 97
06/19/24 07:38 06/19/24 07:38 06/19/24 07:38 06/19/24 07:38 06/19/24 07:38
Lab Results
06/19/24 05:37
06/19/24 05:37
Calcium 9.1 mg/dl (8.4-10.2) 06/19/24 05:37
Total Bilirubin 0.8 mg/dl (0.2-1.3) 06/17/24 05:50
AST 40 U/L (14-36) H 06/17/24 05:50
ALT 57 U/L (0-35) H 06/17/24 05:50
Alkaline Phosphatase 86 U/L (38-126) 06/17/24 05:50
Total Protein 6.8 g/dl (6.3-8.2) 06/17/24 05:50
Albumin 3.7 g/dl (3.5-5.0) 06/17/24 05:50
Physical Exam
-
NAD
ABD soft, tenderness to the LLQ, ND
--- NOTE | 2024-06-19 14:21 | W.PN.ID1 ---
Date of Service
Date of Service: June 19, 2024
Today's Communication
Continue Unasyn.
Assessment / Plan
Acute diverticulitis with abscess formation
Leukocytosis
Hx C. difficile
- No symptomatology prior to admission
Hypothyroidism
Diverticulosis
Recommendations:
Continue with Unasyn.
Although history of C. difficile is somewhat remote, agree with prophylactic vancomycin. Continue with current dose of enteral vanco.
Monitor white count and temperature curve.
Await clinical improvement. Follow aspiration culture.
Diet being advanced.
Chief Complaint
-: Other (Diverticulitis)
Subjective / Review of Systems
Review of Systems: No Fever, No Chills and Abdominal Pain
Vital Signs / Physical Exam
Vital Signs
Vital Signs
Temp Pulse Resp BP Pulse Ox
97.8 F 54 17 155/77 97
06/19/24 07:38 06/19/24 07:38 06/19/24 07:38 06/19/24 07:38 06/19/24 07:38
Physical Exam
Constitutional: No Acute Distress, Comfortable and Non-toxic
Eyes: Sclera Anicteric
Pulmonary: Non Labored
Gastrointestinal: Non Distended
Neurological: Awake and Alert
Psychological: Calm
Objective Data
Lab Data
Lab Results
06/19/24 05:37
06/19/24 05:37
Estimated Creat Clear 81 ml/min 06/19/24 05:37
Total Bilirubin 0.8 mg/dl (0.2-1.3) 06/17/24 05:50
AST 40 U/L (14-36) H 06/17/24 05:50
ALT 57 U/L (0-35) H 06/17/24 05:50
Alkaline Phosphatase 86 U/L (38-126) 06/17/24 05:50
Most recent labs reviewed.
Micro Results:
06/17/24 17:55 Body Fluid Culture - Preliminary
Fluid No Growth After 18-24 Hours
Gram Stain - Preliminary
Imaging:
06/17/2024 CT abdomen/pelvis with contrast: Findings compatible with severe diverticulitis within the sigmoid colon, with several extraluminal collections identified. There is mild bilateral hydronephrosis, without definite stones identified.
Unchanged enlarged myomatous uterus containing a large degenerated/partially calcified fibroid. Please see full dictation for additional detail.
[2024-06-19 15:21] VITALS: BP 147/72
[2024-06-19] MEDS: COZAAR 25 MG PO (15:29)
[2024-06-19 23:00] VITALS: BP 129/67
[2024-06-20] MEDS: UNASYN IV ×3 (01:51→13:56)
[2024-06-20] MEDS: SYNTHROID 75 MCG PO (05:53)
[2024-06-20 06:21] LABS: Hematocrit 36.9 % (37.0-47.0); Hemoglobin 12.7 g/dL (12.0-16.0); Mean Corp Hgb Conc. 34.4 g/dL (33.0-37.0); Mean Corpuscular Hgb 32.9 pg (27.0-31.0); Mean Corpuscular Volume 95.6 fL (81.0-99.0); Mean Platelet Volume 11.6 fL (7.4-10.4); Platelet Count 318 10^3/uL (130-400); Red Blood Cell Count 3.86 10^6/uL (4.20-5.40); Red Cell Dist. Width 12.5 % (11.5-14.5); White Blood Cell Count 12.3 10^3/uL (4.8-10.8)
[2024-06-20 07:11] LABS: Blood Urea Nitrogen 5 mg/dl (7-17); Carbon Dioxide 33 mmol/L (22-30); Chloride 99 mmol/L (98-107); Estimated Creatinine Clearance 69 ml/min; Glucose 101 mg/dl (70-99); Potassium 4.1 mmol/L (3.5-5.1); Sodium 138 mmol/L (135-145); eGFR > 60.00
[2024-06-20 07:15] VITALS: BP 140/77
[2024-06-20] MEDS: COZAAR 25 MG PO (08:57)
[2024-06-20] MEDS: FIRVANQ 125 MG PO (08:57)
[2024-06-20] MEDS: VISBIOME 2 CAP PO (08:57)
[2024-06-20] MEDS: MIRALAX 17 GRAMS PO (08:58)
[2024-06-20 10:05] LABS: % Basophils 0.6 % (0-2); % Eosinophils 2.7 % (0-6); % Immature Granulocytes 0.3 % (0-0.5); % Lymphocytes 16.8 % (20.5-51.1); % Monocytes 6.9 % (1.7-9.3); % Neutrophils 72.7 % (42.2-75.2); Absolute Basophils 0.1 10^3/uL (0-0.2); Absolute Eosinophils 0.3 10^3/uL (0-0.7); Absolute Lymphocytes 1.7 10^3/uL (1.2-3.4); Absolute Monocytes 0.7 10^3/uL (0.1-0.6); Absolute Neutrophils 7.4 10^3/uL (1.4-6.5); Nucleated Red Blood Cells % 0 %
--- NOTE | 2024-06-20 12:58 | W.PN.CRS1 ---
Today's Communication / Plan
-
finish course of abx
continue diet
f/u in the office with Dr. Hernandez in a few weeks
Assessment/Plan
-
63 yo female with h/o multiple diverticular attacks presenting with 5 days of left sided abd pain with CT demonstrating sigmoid diverticulitis with some small fluid collections.
UNION ORGANIZER following with us as hysterectomy my be needed if surgery required urgently, thus far she is improving on IV ABX. No plans for emergent surgery at this time.
S/P IR aspiration with nonpurulent fluid withdrawn on 06/18/23, ?cystic. No abscess present. CX with NGTD
Exam improving
AFVSS
WBC 12.3 (13.0)
--ABX as per ID, finish course as outpatient
--Continue regular diet
--Trend labs/exams
--Analgesics/antiemetics prn
--Medical management as per primary team
--Okay for discharge from our perspective. Follow up with Dr. Hernandez in the office for further elective surgery discussions.
Subjective Data
Subjective Data
Date of Service: June 20, 2024
Patient states she has no nausea or vomiting. She has flatus but no bowel movements. Her LLQ has much improved. She is tolerating a diet.
Objective Data
-
Vital Signs
Temp Pulse Resp BP Pulse Ox
98.0 F 53 16 140/77 99
06/20/24 07:15 06/20/24 08:57 06/20/24 07:15 06/20/24 08:57 06/20/24 07:15
Intake & Output
06/19/24 06/20/24 06/21/24
06:59 06:59 06:59
Intake Total 140 / 140 1080 / 1080
Balance 140 / 140 1080 / 1080
Intake:
Oral fluids 140 / 140 1080 / 1080
Other:
Number of approximated MODERATE 4 2
amounts of urine
Lab Results
06/20/24 05:09
06/20/24 05:09
Physical Exam
-
General: No Acute Distress and AOx3
Abdomen: Soft, Non Distended and Tender (LLQ- mild)
Skin: Warm and Dry
[2024-06-20] MEDS: TYLENOL 650 MG PO (13:56)
--- NOTE | 2024-06-20 15:39 | W.PN.ID1 ---
Date of Service
Date of Service: June 20, 2024
Today's Communication
Continue antibiotics. See below�
Assessment / Plan
Acute diverticulitis with abscess formation
Leukocytosis
Hx C. difficile
- No symptomatology prior to admission
Hypothyroidism
Diverticulosis
Recommendations:
Aspiration cultures without growth.
Continue with Unasyn while inpatient.
At D/C, transition to Augmentin 875 mg PO BID, to continue another 14 days.
Although history of C. difficile is somewhat remote, agree with prophylactic vancomycin. Continue with vanco 125 mg PO qDay for additional 14 days.
����������������������������������������������������������
Chief Complaint
-: Other (Diverticulitis)
Subjective / Review of Systems
Review of Systems: No Fever, No Chills and No Abdominal Pain
Vital Signs / Physical Exam
Vital Signs
Vital Signs
Temp Pulse Resp BP Pulse Ox
98.0 F 53 16 140/77 99
06/20/24 07:15 06/20/24 08:57 06/20/24 07:15 06/20/24 08:57 06/20/24 09:20
Physical Exam
Constitutional: No Acute Distress, Comfortable and Non-toxic
Cardiovascular: S1/S2; Negative S3/S4
Pulmonary: Non Labored
Gastrointestinal: Soft, Tender (minimal), Non Distended and Normal Bowel Sounds
Neurological: Awake and Alert
Psychological: Calm
Objective Data
Lab Data
Lab Results
06/20/24 05:09
06/20/24 05:09
Estimated Creat Clear 69 ml/min 06/20/24 05:09
Total Bilirubin 0.8 mg/dl (0.2-1.3) 06/17/24 05:50
AST 40 U/L (14-36) H 06/17/24 05:50
ALT 57 U/L (0-35) H 06/17/24 05:50
Alkaline Phosphatase 86 U/L (38-126) 06/17/24 05:50
C-Reactive Protein 78.30 mg/L (0.0-10.00) H 06/20/24 05:09
Most recent labs reviewed.
Micro Results:
06/17/24 17:55 Body Fluid Culture - Preliminary
Fluid No Growth After 48 Hours
Gram Stain - Preliminary
Imaging:
06/17/2024 CT abdomen/pelvis with contrast: Findings compatible with severe diverticulitis within the sigmoid colon, with several extraluminal collections identified. There is mild bilateral hydronephrosis, without definite stones identified.
Unchanged enlarged myomatous uterus containing a large degenerated/partially calcified fibroid. Please see full dictation for additional detail.
Care Review
Plan reviewed with: Physician (Hospitalist)
--- NOTE | 2024-06-20 15:52 | W.DS.TRANS ---
DC Summary - Pharmacy Coordinator
-
Discharge Instructions:
Diet Low Residue
Instructions:
Stand-Alone Forms:
Changes to Home Medications: Yes
Discharge Medications:
DC Medications w/original date entered in [facility]
therapeutic multivitamin 1 tab PO DAILY Supplement 11/05/22
Lactobac no.2-Bifidobac no.1-S. thermo 112.5 billion cell capsule (Visbiome) 1 cap PO DAILY probiotic 06/17/24
Metamucil Gummy 1 gummy PO DAILYPRN PRN constipation 06/17/24
levothyroxine 75 mcg tablet (Synthroid) 75 mcg PO DAILY hypothyroidism 06/17/24
amoxicillin 875 mg-potassium clavulanate 125 mg tablet 1 tab PO Q12H #20 tabs 06/20/24
vancomycin 50 mg/mL oral solution 125 mg (2.5 mL) PO DAILY #14 mL 06/20/24
Home Medication Changes
Antibiotics including C-diff prophylaxis
Pending Results: No
[2024-06-20 15:55] VITALS: BP 132/76
--- NOTE | 2024-06-20 16:42 | CM ---
MD entered order for discharge.
Spoke with pt reviewed IMM she agrees with dc.
Offered VN she declined need for VN .
Her brother Rick will drive her home.
PLAN Home no needs
== END 2024-06-20 17:13 | disposition home or self-care (01) | DRG 392 ==
LOC: 3 WEST ACU 09:06
PROVIDERS: Radiology Vascular & Interventional Radiology; Student in an Organized Health Care Education/Training Program; ADMITTING PHYSICIAN Hospitalist; ATTENDING PHYSICIAN Internal Medicine; CONSULT PHYSICIAN Internal Medicine Infectious Disease; CONSULT PHYSICIAN Obstetrics & Gynecology; EMERGENCY PHYSICIAN Emergency Medicine; FAMILY PHYSICIAN Nurse Practitioner Family; OTHER PHYSICIAN Surgery
PROC: 0W9J3ZZ Drainage of Pelvic Cavity, Percutaneous Approach (ICD-10-PCS; 2024-06-17)
DX: K57.20 Diverticulitis of large intestine with perforation and abscess without bleeding (principal); N13.30 Unspecified hydronephrosis; E03.9 Hypothyroidism, unspecified; I10 Essential (primary) hypertension; D25.9 Leiomyoma of uterus, unspecified; Z79.890 Hormone replacement therapy; Z86.19 Personal history of other infectious and parasitic diseases; Z79.899 Other long term (current) drug therapy
CPT/HCPCS: 10160; 74177; 77012; 80048; 80053; 83690; 85025; 85027; 86140; 87015; 87070; 87205; 93005; 96361; 96365; 96375; 99152; 99285; Q9967

== ENCOUNTER 2024-06-23 22:15 | Inpatient (IN) | payer OTHER, SELFPAY ==
[2024-06-23] VITALS (10 sets, daily range): BP systolic 113–143; BP diastolic 61–100; BMI 22.7
[2024-06-23 17:47] LABS: % Basophils 0.5 % (0-2); % Eosinophils 0.5 % (0-6); % Immature Granulocytes 0.4 % (0-0.5); % Lymphocytes 9.9 % (20.5-51.1); % Monocytes 7.5 % (1.7-9.3); % Neutrophils 81.2 % (42.2-75.2); Absolute Basophils 0.1 10^3/uL (0-0.2); Absolute Eosinophils 0.1 10^3/uL (0-0.7); Absolute Immature Granulocytes 0.1 10^3/uL (0-0.05); Absolute Lymphocytes 1.9 10^3/uL (1.2-3.4); Absolute Monocytes 1.4 10^3/uL (0.1-0.6); Absolute Neutrophils 15.3 10^3/uL (1.4-6.5); Hematocrit 36.5 % (37.0-47.0); Hemoglobin 12.7 g/dL (12.0-16.0); Mean Corp Hgb Conc. 34.8 g/dL (33.0-37.0); Mean Corpuscular Hgb 32.3 pg (27.0-31.0); Mean Corpuscular Volume 92.9 fL (81.0-99.0); Mean Platelet Volume 10.8 fL (7.4-10.4); Nucleated Red Blood Cells % 0 %; Platelet Count 388 10^3/uL (130-400); Red Blood Cell Count 3.93 10^6/uL (4.20-5.40); Red Cell Dist. Width 12.8 % (11.5-14.5); White Blood Cell Count 18.8 10^3/uL (4.8-10.8)
[2024-06-23 18:00] LABS: ALT (SGPT) 27 U/L (0-35); AST (SGOT) 24 U/L (14-36); Albumin 3.2 g/dl (3.5-5.0); Alkaline Phosphatase 83 U/L (38-126); Blood Urea Nitrogen 11 mg/dl (7-17); Calcium 8.9 mg/dl (8.4-10.2); Carbon Dioxide 25 mmol/L (22-30); Glucose 123 mg/dl (70-99); Lipase 21 U/L (23-300); Total Bilirubin 0.7 mg/dl (0.2-1.3); Total Protein 6.4 g/dl (6.3-8.2); eGFR > 60.00
[2024-06-23 18:02] LABS: Chloride 100 mmol/L (98-107); Potassium 4.2 mmol/L (3.5-5.1); Sodium 132 mmol/L (135-145)
[2024-06-23] MEDS: TORADOL 15 MG IV (19:20)
[2024-06-23] MEDS: NSS 1000 IV (19:20)
[2024-06-23] MEDS: ZOFRAN 4 MG IV (19:21)
--- NOTE | 2024-06-23 19:30 | ED.GENMED ---
History of Present Illness
General
Chief Complaint: Abdominal Pain
Source: patient
Exam Limitations: none
Time Seen by Provider: 06/23/24 18:33
Nursing documentation reviewed up to this point in time: agreed with
History of Present Illness
History of Present Illness:
Patient is a 63-year-old female recently admitted to for diverticulitis complicated by microperforation and abscess presenting to the emergency department with worsening lower abdominal pain. Patient was discharged on Thursday and transitioned to
Augmentin which states that she has been compliant with. Patient describes persistent pain in left lower quadrant which has become slightly worse since arrival home. She also has had nausea and little p.o. intake. She did have 1 soft bowel
movement. Patient denies any vomiting or known fever. No urinary symptoms. No chest pain or shortness of breath
Past History
Past History
ED Past Medical History: Hypothyroidism and Other (Diverticulosis, cdiff)
ED Past Surgical History: Negative Bowel resection or Cholecystectomy
Social History
Tobacco: Non-smoker
Alcohol: None
Drug: None
Personal: Other
Living: with family
Employment: Employed
Family History
Family History: Other (no sick family members)
Review of Systems
Review of Systems
Allergies reviewed?: Yes
All Other Systems: ROS reviewed and negative except as documented in HPI and ROS
Phy Exam
Physical Exam
Physical Exam:
Vitals: Patient's vital signs are stable. Afebrile
General: Patient is in mild distress due to pain.
Skin: Warm and dry, no rashes or lesions
Head: Normocephalic, atraumatic
Eyes: Sclera nonicteric. EOMs intact. No nystagmus.
Throat: Protecting airway
Neck: Normal ROM, no cervical spine tenderness, no meningismus
Cardiac: Regular rate and rhythm, no murmurs.
Pulm: Normal respiratory effort, no wheezes, rales, rhonchi heard on exam.
Abdomen: Abdomen soft. Moderate tenderness in lower abdomen. No rebound tenderness or guarding.
Extremities: No evidence of cyanosis or edema. Palpable distal pulses
Neuro: AAOx3. Grossly tact
Psychiatric: Normal affect.
Course
Orders/Labs/Results
Orders:
Orders
06/23/24 17:33
Complete Blood Count/With Diff Urgent
Comprehensive Metabolic Panel Urgent
Lipase Urgent
06/23/24 18:47
0.9% Sodium Chloride 1000 ml [Nss] 1,000 ml IV BOLUS
Ondansetron Injectable [Zofran] 4 mg IV NOW STA
06/23/24 18:48
CT Abd/pelvis W Iv Cont Urgent
Comment:
Reason For Exam: LLQ pain
06/23/24 18:49
Ketorolac [Toradol] 15 mg IV NOW STA
06/23/24 19:26
Lactic Acid Q4H
Comment: CANCEL 2nd LACTIC ACID IF 1st LACTIC ACID IS LESS THAN 2
06/23/24 20:15
HYDROmorphone [Dilaudid] 0.5 mg IV NOW STA
06/23/24 20:42
Urine Culture Reflexed from UA [Urinalysis Reflex To Culture] Urgent
Date Specimen was Collected: 06/23/24
Time Specimen was Collected: 20:32
Urine Microscopic Reflex Cult Urgent
06/23/24 21:00
Piperacillin/Tazo 3.375 Gram [Zosyn] 3.375 gram in 50 ml IV NOW
06/23/24 21:40
Admit/Transfer Patient As Directed
Co-Sign Provider:
Level of Care: Inpatient admission
Assign to:: Medical/Surgical
Physician / Group: hospitalist
Diagnosis: acute sigmoid diverticulitis
Reason for Hospitalization: acute diverticulitis with possible abscess
Expected length of stay greater than two midnights?: Yes
ELOS- Estimated Length of Stay in days: 2
I certify the patient meets the requirements for IP care: Yes
06/23/24 21:41
PRN Pain Medication Management As Directed
May give lesser potent ordered pain med per pt: Yes
preference::
Protocol:: Medication orders for pain may be administered in a
manner that supports deferring to patient preference
when the pt is:
- Requesting an ordered lesser potent pain medication.
Least to most potent pain medications are defined
as: acetaminophen < NSAID < tramadol < opioids
(morphine, oxycodone, hydromorphone).
- Requesting a lesser dose of the same medication IF
ORDERED.
- Requesting a less intrusive route of administration
if both routes are prescribed by the provider (PO <
IV).
06/23/24 21:42
Code Status As Directed
Resuscitation Status: Full Code
06/23/24 22:00
Dextrose 5%/0.9%Sodchl 1000 ml [D5/0.9% Sodium Chloride] 1,000 ml IV 75 mls/hr
Flush (0.9% Sodium Chloride) [Flush (Nss)] See Dose Instructions IV PER PROTOCOL
Abnormal Lab Results
06/23/24 06/23/24
17:33 20:42
WBC 18.8 H 10^3/uL
(4.8-10.8)
RBC 3.93 L 10^6/uL
(4.20-5.40)
Hct 36.5 L %
(37.0-47.0)
MCH 32.3 H pg
(27.0-31.0)
MPV 10.8 H fL
(7.4-10.4)
Abs Immat Gran (auto) 0.1 H 10^3/uL
(0-0.05)
Absolute Neuts (auto) 15.3 H 10^3/uL
(1.4-6.5)
Absolute Monos (auto) 1.4 H 10^3/uL
(0.1-0.6)
Neutrophils % 81.2 H %
(42.2-75.2)
Lymphocytes % 9.9 L %
(20.5-51.1)
Sodium 132 L mmol/L
(135-145)
Glucose 123 H mg/dl
(70-99)
Albumin 3.2 L g/dl
(3.5-5.0)
Lipase 21 L U/L
(23-300)
Urine Ketones 3+ A
(Negative)
Ur Occult Blood Reflex 1+ A
(Negative)
Urine Bacteria (Reflex) Few A
(Negative)
06/23/24 17:33
06/23/24 17:33
Vital Signs
Initial and Last Documented VS:
Initial Vital Signs
Temp Pulse Resp BP Pulse Ox
98.6 F 89 18 137/100 100
06/23/24 17:14 06/23/24 17:14 06/23/24 17:14 06/23/24 17:14 06/23/24 17:14
Last Documented Vital Signs
Temp Pulse Resp BP Pulse Ox
97.8 F 61 18 145/79 97
06/24/24 00:34 06/24/24 00:34 06/24/24 00:34 06/24/24 00:34 06/24/24 00:34
MDM/Problems Addressed
Differential Diagnosis Includes:
Not limited to: Diverticulitis, bowel perforation, intra-abdominal abscess, appendicitis, UTI, C. difficile, etc.
MDM/Problems Addressed:
63-year-old female recently discharged from after diverticulitis complicated by microperforation and intra-abdominal abscess now with persistent/worsening abdominal pain. No fevers, urinary symptoms. Patient hypertensive, otherwise stable vital
signs. Physical exam as above. Basic labs were sent in triage significant for a leukocytosis of 18.8 with left shift. Chemistry without clinically significant abnormalities. Given worsening abdominal pain with known complicated
diverticulitis/will obtain repeat CT scan. Will give IV fluids, pain control. Will check lactic.
Update: Urine noninfected. Lactic normal. Did talk to radiologist on phone who states CT scan shows persistent diverticulitis now with multiple intra-abdominal abscesses, increased from prior study. Patient will require admission for IV
antibiotics. Discussed with patient at bedside who remains hemodynamically stable with improvement in pain. Zosyn initiated in ED. Case discussed with colorectal surgeon, Dr. Arnold who is aware and will plan for drain placement tomorrow. Patient
admitted to hospital service in stable condition.
Chronic conditions affecting care:
Diverticulitis
Acute Exacerbation and/or Progression of Chronic Illness:
Acute complicated diverticulitis
*Radiology
Radiology exam reviewed: radiology read reviewed
*Pulse Oximetry
Patient hypoxic: no
*EKG
Interpreted by ED Provider?: NA
*Maori Physiotherapist Interpretation
Rate: normal
Interpretation: normal
Heart Rate: 76
Rhythm: sinus
*Critical Care Note
Total Time (30-74mins, 75-104mins- exclusive of procedures): Not Applicable
Data Reviewed
Review of Other/Old Records Reveals: Discharge Summary (Discharge summary 06/20/2024 with acute diverticulitis complicated with abscess formation-sent home on oral Augmentin)
Source: previous hospital records
Patient Management
Discussion with other providers: Hospitalist and Auction Block Clerk (Case was discussed with colorectal surgery)
Escalation/DeEscalation of care consider admission/obs:
Admit for IV antibiotics, drain placement
ED Attending Note
-
Portions of this chart may have been created with voice recognition software.� Occasional wrong word or��sound alike� substitutions may have occurred due to the inherent limitations of voice recognition software.
Discharge Plan
Departure
Patient Disposition: Admit
Date of Disposition: 06/23/24
Time of Disposition: 21:01
Presentation/result/management discussed w/ accepting MD/DO: Hospitalist
Discharge Problem:
Diverticulitis of large intestine with complication
Interventions
Interventions:
*Risk Screen - Suicide Last Done: 06/23/24 17:14
*General Assessment Last Done: 06/23/24 17:14
*Neglect/Abuse Screening Last Done: 06/23/24 17:14
*ED COVID-19 Vaccine History Last Done: 06/23/24 17:14
WQ-Aafues-Hwoacaxeol Assessment Last Done: 06/23/24 19:29
[2024-06-23 19:47] LABS: Lactic Acid 0.7 mmol/L (0.7-2.0)
[2024-06-23] MEDS: DILAUDID 0.5 MG IV (20:23)
[2024-06-23 20:52] LABS: Urine Albumin Negative (Neg - Trace); Urine Bilirubin Negative (Negative); Urine Character Clear (Clear); Urine Color Yellow; Urine Glucose Negative (Negative); Urine Ketone 3+ (Negative); Urine Leukocyte Negative (Negative); Urine Nitrite Negative (Negative); Urine Occult Blood 1+ (Negative); Urine Urobilinogen Negative (Neg - 1+)
--- NOTE | 2024-06-23 21:09 | PHANOTE ---
[employer] tech(06/23/24)-Patient was unable to fill vancomycin prescriptions, so has only been taking Augmentin at home.
[2024-06-23 21:20] LABS: Urine Bacteria Few (Negative); Urine Red Blood Cell 0-2 /HPF (0-2)
--- NOTE | 2024-06-23 21:33 | HPS.HSE ---
Family Physician
-
Family Physician: ROMAINE Mai
Chief Complaint
-
Abdominal pain
History of Present Illness
This is a 63-year-old female with past medical history significant for diverticulitis (as had 5 prior episodes) who was recently admitted for diverticulitis on June 27, discharged on oral antibiotics and now comes seen a week persistent abdominal
pain.
Patient was seen in the emergency department June 17, had a CT scan which showed sigmoid diverticulitis complicated by fluid collection possibly abscesses. She was added on Unasyn. She had IR CT-guided aspiration of fluid sample. She has been no
growth till date on that sample. It was a yellow thin fluid and not obviously purulent. Patient reported that she felt better on IV antibiotics and then was discharged on June 19 on Augmentin. She reports that she has been compliant with the
Augmentin since discharge. On the day of discharge patient reported that she did have abdomen pain. Over the last 3 days she has had worsening abdominal pain with associated nausea but denies any vomiting. She denies any diarrhea. She has not
had any fevers or chills. She denies any urinary symptoms. She denies flank pain. She denies any headache. She has not been vomiting and has been able to keep down the antibiotic.
On arrival in the Emergency Department today, she remains afebrile with a temp of 98.5, blood pressure was 120/70 with a pulse of 86 and she sat 90% on room air. UA is negative. She had a white count of 18.8, CBC otherwise unremarkable. Her
sodium was 132 and the rest of the electrolytes were normal. BUN/creatinine were normal. Leukos was normal.
She had a repeat CT scan of the abdomen pelvis again showing prominent thickening of the wall of the sigmoid colon suspicious for colitis/diverticulitis with a few small accompanying abnormal focal fluid collection suspicious for abscesses. The
largest measured 4.7 cm in greatest dimension which is slightly increased from prior study where it was about 3.9 cm in greatest dimension.
Also seen was a large mixed attenuation pelvic mass in the midline to the right greater than 10 cm thought to be secondary to degenerated uterine fibroid. Unchanged from prior study.
Medical History
Past Medical History
Past Medical History: Reports Other
Additional Past Medical History:
recurrent diverticulitis, uterine fibroid, hypothyroidism, history of bilateral mild hydroureteronephrosis, presumed hypertension, history of C. difficile colitis
Past Surgical History: Reports Other
Social History
Tobacco: Smoker (on/off)
Alcohol: Occasional
Drug: None
Living: Alone
Family History
Family History: Not pertinent
Allergies / Home Medications
Allergies reflects when Allergies were last updated in [employer].
Home Medications with original date entered in [employer]
Allergy/Medication List:
Allergies
Allergy/AdvReac Type Severity Reaction Status Date / Time
No Known Allergies Allergy Verified 06/23/24 17:16
Home Medications
Metamucil Gummy 1 gummy PO DAILYPRN PRN constipation 06/17/24
levothyroxine 75 mcg tablet (Synthroid) 75 mcg PO DAILY hypothyroidism 06/17/24
amoxicillin 875 mg-potassium clavulanate 125 mg tablet 1 tab PO Q12H #20 tabs 06/20/24
ondansetron HCl 4 mg tablet 4 mg PO Q6HPRN PRN nausea 06/23/24
Review of Systems
-
Constitutional: Reports No Symptoms
EENT: Reports No Symptoms
Respiratory: Reports No Symptoms
Cardiac: Reports No Symptoms
Abdomen/GI: Reports Abdominal Pain and Nausea
: Reports No Symptoms
Musculoskeletal: Reports No Symptoms
Skin: Reports No Symptoms
Neurological: Reports No Symptoms
Endocrine: Reports No Symptoms
Hematologic/Lymphatic: Reports No Symptoms
Psych: Reports No Symptoms
Physical Exam
Vital Signs
Vital Signs
Temp Pulse Resp BP Pulse Ox
98.5 F 66 20 120/71 93
06/23/24 19:30 06/23/24 20:30 06/23/24 20:30 06/23/24 20:30 06/23/24 20:30
Physical Exam
General: Well Developed
HEENT: NormoCephalic, Anicteric, Moist mucous membranes and Atraumatic
Respiratory: Clear
Cardiac: S1/S2 and Regular Rhythm
Breast: Deferred by me
GI: Non Distended, Normal Bowel Sounds and Tender (LLQ TTP, no rebound or guarding)
Rectal: Deferred by Provider
Genito-urinary: Deferred by me
Musculoskeletal: No Clubbing and No Cyanosis
Skin: Warm
Neuro: AO x 3 and Nonfocal/grossly intact
Hematologic/Lymphatic: No Lymphadenopathy
Psych: Calm
Laboratory Results
-
06/23/24 17:33
06/23/24 17:33
Laboratory Results
Lactic Acid Cancelled 06/23/24 23:00
Total Bilirubin 0.7 mg/dl (0.2-1.3) 06/23/24 17:33
AST 24 U/L (14-36) 06/23/24 17:33
ALT 27 U/L (0-35) 06/23/24 17:33
Alkaline Phosphatase 83 U/L (38-126) 06/23/24 17:33
Lipase 21 U/L (23-300) L 06/23/24 17:33
Data Reviewed
-
CT Scan: Report Reviewed by me
Lab Data: Labs Reviewed by me
Old Records: Reviewed
Impression/Plan
-
IMPRESSION:
63-year-old with history of recurrent diverticulitis who presents to the emergency department today with persistent abdominal pain despite initial admission and treatment for acute diverticulitis on June 27 status post IV antibiotics with Unasyn
and discharged on oral Augmentin with compliance with medication. She now has leukocytosis to 18.8, ongoing acute diverticulitis on CT scan with increased fluid collection concerning for abscess. She does not have a fever and he remains
hemodynamically stable.
PLAN:
1. Ongoing sigmoid diverticulitis complicated by possible abscesses, hemodynamically stable and afebrile at this time.
- admit to med/surg
- started on IV zosyn, will continue for now
- blood cultures if febrile
- s/p negative aspiration of fluid sample on 06/17.
- pain control, antiemetics and IV fluids
- ID consultation
- Surgery consulted, awaiting recommendations
- npo for now
- DVT PPX - lovenox sq
Code status - Full Code
[2024-06-23] MEDS: ZOSYN 50 IV (21:56)
[2024-06-24] VITALS (10 sets, daily range): BP systolic 72–145; BP diastolic 62–79; BMI 23.0
[2024-06-24] MEDS: D5/0.9% SODIUM CHLORIDE 1000 IV ×2 (00:26→13:23)
[2024-06-24] MEDS: FLUSH (NSS) 1 FLUSH IV (00:31)
--- NOTE | 2024-06-24 02:33 | PTCARENOTE ---
Pt received from ER [email or web address] able to make her needs known.Denies pain at this time.Pt oriented to room & call adames in reach.Pt oob with 1 person assist.Plan of care continued.
[2024-06-24] MEDS: ZOSYN 50 IV ×3 (04:36→16:16)
[2024-06-24] MEDS: SYNTHROID 75 MCG PO (05:00)
[2024-06-24] MEDS: ZOFRAN 4 MG IV ×2 (05:04→11:01)
[2024-06-24] MEDS: TYLENOL 650 MG PO (07:42)
[2024-06-24 08:29] LABS: Hematocrit 34.2 % (37.0-47.0); Hemoglobin 11.9 g/dL (12.0-16.0); Mean Corp Hgb Conc. 34.8 g/dL (33.0-37.0); Mean Corpuscular Hgb 33.1 pg (27.0-31.0); Mean Platelet Volume 11.3 fL (7.4-10.4); Platelet Count 325 10^3/uL (130-400); Red Cell Dist. Width 12.9 % (11.5-14.5); White Blood Cell Count 15.1 10^3/uL (4.8-10.8)
[2024-06-24 09:07] LABS: Blood Urea Nitrogen 8 mg/dl (7-17); Calcium 8.3 mg/dl (8.4-10.2); Carbon Dioxide 26 mmol/L (22-30); Chloride 100 mmol/L (98-107); Estimated Creatinine Clearance 81 ml/min; Glucose 153 mg/dl (70-99); Magnesium 1.9 mg/dl (1.6-2.3); Potassium 3.8 mmol/L (3.5-5.1); Sodium 135 mmol/L (135-145); eGFR > 60.00
[2024-06-24] MEDS: FLUSH (NSS) 2 FLUSH IV (09:41)
[2024-06-24] MEDS: FIRVANQ 125 MG PO (09:41)
[2024-06-24] MEDS: TORADOL 10 MG IV (11:00)
--- NOTE | 2024-06-24 12:40 | CM ---
Patient seen bedside.
DX diverticulitis
Patient lives alone in a 1 story home with no steps to enter.
Patient independent prior to admission without assistive devices.
Patient drives and works.
Patient will lorri with her brother jacinto Sepulveda post hospitalization.
No hx VN.
Denies home care needs.
PCP: Dr Edmond; [facility]
Pharmacy: [facility] Sepulveda
Plan: home no needs, brother will transport.
--- NOTE | 2024-06-24 14:11 | CON.CRS ---
Consultation
-
Date/Time Consultation Requested: 06/24/2024, 00:43
Date/Time Consultation Performed: 06/24/2024, 0845
Requesting Provider: Salina Huggins MD
Performing Provider: Robin Arnold MD
Reason for Consultation: diverticulitis
Medical History
-
Chief Complaint: Abdominal pain
History of Present Illness:
63-year-old female with 6 prior attacks of diverticulitis over the past 10 years presents to the ER due to worsening abdominal pain. She was recently admitted from 06/17/2024 to 06/20/2024 due to sigmoid diverticulitis with a few fluid collections.
During the admission, Dr. Iglesias was consulted due to a large uterus that would be required to be resected if she were to need emergency surgery. She did not undergo any surgery during her last admission and did not undergo an IR drain. She was
on IV antibiotics during her stay and transition to p.o. Augmentin for 14 days per infectious disease.
She presented to [facility] earlier this morning due to persistent abdominal pain. She had a repeat CT abdomen pelvis which showed thickening of the wall of the sigmoid suspicious for colitis/diverticulitis with a few small Co. abnormal
fluid collection suspicious for abscess. Large measured 4.6 cm greatest dimension which is slightly increased from prior study. On admission her WBC was 18.8 and it is 15.1 today. She was febrile this morning with a temperature of 101.3. Given
the above, we have been consulted for surgical opinion.
Past Medical History
Past Medical History: Other (recurrent diverticulitis, uterine fibroid, hypothyroidism, history of bilateral mild hydroureteronephrosis, presumed hypertension, history of C. difficile colitis)
Past Surgical History: None
Social History
Tobacco: Non-Smoker
Alcohol: None
Drug: None
Family History
Family History: Reviewed & Not Pertinent
Allergies / Home Medications
Allergy/AdvReac Type Severity Reaction Status Date / Time
No Known Allergies Allergy Verified 06/23/24 17:16
�Medication �Instructions �Recorded �Confirmed �Type
Metamucil Gummy 1 gummy PO DAILYPRN PRN 06/17/24 06/23/24 History
constipation
levothyroxine 75 mcg tablet 75 mcg PO DAILY hypothyroidism 06/17/24 06/23/24 History
(Synthroid)
amoxicillin 875 mg-potassium 1 tab PO Q12H #20 tabs 06/20/24 06/23/24 Rx
clavulanate 125 mg tablet
ondansetron HCl 4 mg tablet 4 mg PO Q6HPRN PRN nausea 06/23/24 06/23/24 History
Review of Systems
-
History Source: Patient
Abdomen/GI: Abdominal Pain
A 10 point review of systems was completed, and was negative except as per HPI.
Physical Exam
Vital Signs
Temp 98 F 06/24/24 13:30
Pulse 72 06/24/24 07:45
Resp Rate 20 06/24/24 07:45
Blood pressure 130/70 06/24/24 07:45
SaO2 95 06/24/24 08:00
06/23/24 06/24/24 06/25/24
06:59 06:59 06:59
Actual Weight 60.691 kg
Body Mass Index (BMI) 23.0
Lab Results / Allergies
06/24/24 06:42
06/24/24 06:42
WBC 15.1 10^3/uL (4.8-10.8) H 06/24/24 06:42
Hgb 11.9 g/dL (12.0-16.0) L 06/24/24 06:42
Hct 34.2 % (37.0-47.0) L 06/24/24 06:42
Plt Count 325 10^3/uL (130-400) 06/24/24 06:42
Abs Immat Gran (auto) 0.1 10^3/uL (0-0.05) H 06/23/24 17:33
Neutrophils % 81.2 % (42.2-75.2) H 06/23/24 17:33
Allergy/AdvReac Type Severity Reaction Status Date / Time
No Known Allergies Allergy Verified 06/23/24 17:16
Physical Exam
General: Well Developed, Well Nourished and No Apparent Distress
GI: Soft, Non Distended and Tender (Left lower quadrant, mild to moderate)
Neuro: AO x 3
Psych: Calm
Data Reviewed
-
CT Scan: Image Personally Visualized and interpreted, Report Reviewed by me and Discussed with Patient
Labs: Labs Reviewed by me, Discussed with Physician and Discussed with Patient
Old Records: Reviewed
Assessment / Plan
-
Assessment: 63-year-old female with 6 attacks of diverticulitis in the past and recently discharged for sigmoid diverticulitis a few days ago, presents to [place] ER with worsening abdominal pain and found to have a 4.6 cm abscess in the left
lower quadrant with leukocytosis of 18K and febrile of 101.0
Plan:
-IR has been consulted for drainage and cultures
-Infectious disease consult
-Continue IV antibiotics
-Continue IV fluids
-N.p.o.
-Dr. Iglesias was consulted during her last admission given her enlarged uterus, should she require surgery.
--- NOTE | 2024-06-24 15:04 | CON.ID ---
Consultation
-
Date/Time Consultation Requested: June 24, 2024 0043
Date/Time Consultation Performed: June 24, 2024 1500
Requesting Provider: Dr. Salina Huggins
Performing Provider: Dr. Mireya Jimenez
Reason for Consultation: Diverticulitis with abscess
Chief Complaint / Past History
Chief Complaint
Persistent abdominal pain
History of Present Illness
63 year old female significant past medical history of recurrent diverticulitis recently hospitalized June 16 to June 20 with acute diverticulitis with abscess formation s/p aspiration (cx neg), treated conservatively with Unasyn, then discharged
on Augmentin to complete 10 more days as well as prophylactic oral vancomycin for history of C. difficile. She returned to the hospital yesterday due to worsening abdominal pain. Positive fever. Positive nausea. No vomiting. Had loose stool
today. In ED temperature 101, white count 18.8. CAT scan limited study without oral contrast, suspect prominent thickening of the sigmoid colon wall with a few small accompanying abnormal focal fluid collections suspicious for abscess largest on
the left pelvic sidewall 4.7 cm in size slightly increased from previous. She went down for percutaneous drainage, however CAT scan showed new large amount of intraperitoneal free air suspicious for perforated acute diverticulitis and therefore
PERC drain was canceled.
Past History
Additional Past Medical History:
Hypothyroidism
Recurrent diverticulitis
C. diff
uterine fibroid
Additional Past Surgical History:
Eye surgery
Allergy History:
No Known Allergies Allergy (Verified 06/23/24 17:16)
Medications Reviewed: Yes
Current Antibiotics:
Zosyn
P.o. vancomycin 125 mg daily
Social History
Tobacco: Smoker
Alcohol: None
Drug: None
Employment: Employed
Family History
Family History: Not Pertinent
Review of Systems
Review of Systems
General: Fever, Chills and Change in Appetite
HEENT: Negative Headache or Pharyngitis
Cardiovascular: Negative Chest Pain or Dyspnea
Respiratory: Negative Dyspnea or Cough
Gasteroenterology: Nausea; Negative Diarrhea
Genital / Urological: Negative Dysuria or Flank Pain
Endocrine: Weakness
All systems: All other systems were reviewed and were negative
Vital Signs
Temp Pulse Resp BP Pulse Ox
98.7 F 72 16 109/70 98
06/24/24 14:11 06/24/24 14:11 06/24/24 14:11 06/24/24 14:11 06/24/24 14:11
Physical Exam
Physical Exam
Constitutional: Acutely Ill
Eyes: No Conjunctival Hemorrhage and Sclera Anicteric
Cardiovascular: Regular Rate and S1/S2
Pulmonary: Clear
Gastrointestinal: Soft, Tender (Left lower quadrant to lower mid abdomen), Non Distended and Decreased Bowel Sounds
Genito-Urinary: Negative CVA Tenderness
Extremities: Negative Edema
Neurological: AO x 3
Lab / Diagnostic Study Results
06/24/24 06:42
06/24/24 06:42
Abs Immat Gran (auto) 0.1 10^3/uL (0-0.05) H 06/23/24 17:33
Absolute Neuts (auto) 15.3 10^3/uL (1.4-6.5) H 06/23/24 17:33
Absolute Lymphs (auto) 1.9 10^3/uL (1.2-3.4) 06/23/24 17:33
Absolute Monos (auto) 1.4 10^3/uL (0.1-0.6) H 06/23/24 17:33
Absolute Basos (auto) 0.1 10^3/uL (0-0.2) 06/23/24 17:33
Immature Gran % 0.4 % (0-0.5) 06/23/24 17:33
Neutrophils % 81.2 % (42.2-75.2) H 06/23/24 17:33
Lymphocytes % 9.9 % (20.5-51.1) L 06/23/24 17:33
Monocytes % 7.5 % (1.7-9.3) 06/23/24 17:33
Eosinophils % 0.5 % (0-6) 06/23/24 17:33
Basophils % 0.5 % (0-2) 06/23/24 17:33
Lactic Acid Cancelled 06/23/24 23:00
Ur Squamous Epith Cells 3-5 /LPF (Few) 06/23/24 20:42
Microbiology Results
06/24/24 CT a/p wo contrast: New large amount of intraperitoneal free air suspicious for perforated acute diverticulitis, a significant change compared to the CT from yesterday. Given these findings, percutaneous drainage of pelvic abscess not
performed.
06/23/24 CT a/p: Large mixed attenuation pelvic mass midline to the right again seen measuring greater than 10 cm most likely a degenerated uterine fibroid, predominantly stable in comparison to recent prior study. Markedly limited evaluation of
intestinal tract without oral contrast and with paucity of intrapelvic fat with suspected prominent thickening of the wall of the sigmoid colon suspicious for colitis or diverticulitis with A FEW SMALL ACCOMPANYING ABNORMAL FOCAL FLUID COLLECTIONS
SUSPICIOUS FOR ABSCESSES, largest on the left pelvic sidewall measuring 4.7 cm in greatest dimension, slightly increased from recent prior study.
Assessment / Plan
# Perforated sigmoid diverticulitis with free air and abscess
# Fever
# Leukocytosis
# History of C. difficile
-Colorectal surgery following. If surgical intervention, please obtain deep cultures.
-Follow blood cultures
-Agree with Zosyn.
-Trend temperature and white count
-Continue prophylactic oral vancomycin 125 mg daily for history of C. difficile.
--- NOTE | 2024-06-24 15:32 | W.PN.HOSP.TC ---
Today's Communication/Plan
-
IV antibiotics per
N.p.o. after
Interventional radiology consultation for percutaneous drain
Assessment / Plan
Assessment / Plan
Impression:
Acute severe recurrent complicated diverticulitis
Uterine fibroid on CT scan
Other conditions:
Prior history of C. difficile.
Hypothyroidism on replacement
Plan:
CT AP:
Large mixed attenuation pelvic mass midline to the right again seen measuring greater than 10 cm most likely a degenerated uterine fibroid, predominantly stable in comparison to recent prior study.
Markedly limited evaluation of intestinal tract without oral contrast and with paucity of intrapelvic fat with suspected prominent thickening of the wall of the sigmoid colon suspicious for colitis or diverticulitis with A FEW SMALL ACCOMPANYING
ABNORMAL FOCAL FLUID COLLECTIONS SUSPICIOUS FOR ABSCESSES, largest on the left pelvic sidewall measuring 4.7 cm in greatest dimension, slightly increased from recent prior study.
i[facility] consultation for possible percutaneous drain of pelvic abscess
N.p.o.
IV fluids
Antibiotics broadened to Zosyn pending ID consultation and possible aspirate culture.
Resume oral vancomycin at prophylactic dose
Adjust analgesic regimen.
Uterine fibroid
-Large uterine fibroid visible on imaging, present from previous imaging as well
-Will require outpatient follow-up with gynecology in the office
-Patient denies of having any blood PV
-Patient evaluated by gynecological urologist, patient will likely require simultaneous uterine fibroid removal if needed to go for sigmoid resection.
Hypothyroidism
-Maintain on levothyroxine 75 mcg daily
Anticipated Discharge: > 48 hours
Subjective/Interval History
-
Date of Service: June 24, 2024
Objective Data
-
Labs:
Laboratory Results
06/24/24
06:42
WBC 15.1 H
Hgb 11.9 L
Hct 34.2 L
Plt Count 325
Sodium 135
Potassium 3.8
Chloride 100
Carbon Dioxide 26
BUN 8
Creatinine 0.6
Glucose 153 H
Calcium 8.3 L
Vital Signs:
Vital Signs
Temp Pulse Resp BP Pulse Ox
98.7 F 73 16 124/71 93
06/24/24 14:11 06/24/24 15:30 06/24/24 15:30 06/24/24 15:30 06/24/24 15:30
I&O
06/23/24 06/24/24 06/25/24
06:59 06:59 06:59
Intake Total 2099 / 2099
Output Total 200 / 200
Balance 1899 / 1899
Physical Exam
-
General: Well Developed and No Apparent Distress
HEENT: Normocephalic, Atraumatic and Moist Mucous Membranes
Respiratory: Clear to Auscultation
Cardiac: Regular Rhythm and S1/S2; Negative Murmur, Rub or Gallop
GI: Soft, Nontender, Nondistended and Normal Bowel Sounds; Negative Organomegaly
Rectal: Deferred by Provider
Musculoskeletal: No Clubbing, No Cyanosis and No Edema
Skin: Negative Rash
Neuro: Nonfocal/Grossly Intact
--- NOTE | 2024-06-24 16:00 | W.PN.UPDATE ---
Update Note
Progress Note Update
- Pt came down for attempted percutaneous drainage this afternoon
- Skin Peeling Machine Operator CT of the abdomen/pelvis showed fairly extensive free air within the peritoneal cavity, new since the prior CT. Procedure aborted. Colorectal surgery notified.
[2024-06-24] MEDS: DILAUDID 0.5 MG IV (16:35)
--- NOTE | 2024-06-24 22:47 | W.IMMPOSTOP ---
Surgical Immed Post Op Note
-
Intraoperative consultation requested by Robin Arnold MD to perform hysterectomy due to dense pelvic adhesions, severe diverticular disease, and colonic mass and difficult visualization due to enlarged uterus.
Co-Surgeon: Alisson German DO
CO-Surgeon: Itzel Wan MD
Pre-op Diagnosis: Perforated colon, advanced diverticular disease, dense pelvic adhesions, enlarged uterus obscuring visualization
Post-op Diagnosis: same
Procedure Performed: Total abdominal hysterectomy right salpingo-oopherectomy, left salpingectomy (suspected left oopherectomy with removal
of colon specimen)
Anesthesia Type: general ET Dr. Cardozo
Specimen / Cultures: uterus, cervix, right tube and ovary, left fallopian tube
Estimated Blood Loss: 25mL
Complications: none
Operative Findings: Enlarged uterus with dilated fallopian tubes, atrophic right ovary. Left ovary not identified, not seen. Suspect possible involvement/removal of left ovary en bloc with colon mass. Colon mass involving sigmoid colon. Dense
pelvic adhesions
Stable at completion of driver utility worker portion of case
[2024-06-25] VITALS (15 sets, daily range): BP systolic 110–139; BP diastolic 45–78; BMI 23.8
--- NOTE | 2024-06-25 00:36 | W.IMMPOSTOP ---
Addendum entered and electronically signed by Giancarlo Pearson MD 06/25/24 01:12:
updated patient's brother, Rick; preoperatively, patient elected Rick to be her medical proxy if she is unable to make decisions for herself
Original Note:
Surgical Immed Post Op Note
-
Primary Surgeon: Giancarlo Pearson MD
Assisting Surgeon: Robin Arnold MD, ART Childs
Co-surgeons: Deuce Robbins MD, Alisson Lewis MD, Nicholas Parekh MD
Pre-op Diagnosis: perforated diverticulitis, fibroid uterus
Post-op Diagnosis: perforated diverticulitis, fibroid uterus
Procedure Performed: exlap, sigmoidectomy, creation of end-colostomy, repair of serosal injury, rigid proctosigmoidoscopy; DEVORAH, RSO, L salpingectomy with likely oophorectomy in colon specimen by Ob-Extractor Operator; cystoscopy with left ureteral stent placement
by Urology; TAP block by anesthesia
Anesthesia Type: general
Specimen / Cultures: sigmoid colon, uterus, right fallopian tube, right ovary, left fallopian tube
Estimated Blood Loss: 100mL
UOP: 1.5L
IVF: 4L
Complications: none
Operative Findings: upon entry, possible cauterization injury to small bowel which was oversewed with a lembert suture; no feculant or purulent ascites; mildly dilated small bowel; extremely enlarged uterus obsecuring the pelvis; distal sigmoid
with perforation and abscess; chronic dense adhesions between the left pelvis, distal sigmoid colon, left adnexa and uterus making it extremely difficult in order to dissect into the pelvis; divided the proximal sigmoid with the green load of the
contour stapler; IntraOp consult to EDITORIAL WRITER who performed a hysterectomy; unable to identify the left ovary due to the severe chronic inflammation; successfully identified the right ureter and identified a structure that appeared to be the left
ureter but was dilated and not vermiculation; after freeing the inflammatory mass of sigmoid colon from the pelvic inlet, traced the suspected left ureter into the inflammatory mass; IntraOp consult to urology who performed cystoscopy and left
ureteral stent placement, confirming the dilated tubular structure on the left as the ureter; the left ureter was carefully dissected away from the inflammatory mass and kept safe; divided the proximal rectum with a green load of the contour
stapler; oversewed the rectal stump and placed a 19 Greenlandic Matti drain in the pelvis; performed rigid proctosigmoidoscopy to confirm no leak and evacuated liquid stool; created end colostomy
--- NOTE | 2024-06-25 00:45 | SUR.PHASEI ---
rec'd snoring in bed with HOB elevated low fowlers on arrival , oriented x 3 by RN diaphoretic blankets removed N/G tube low cont wall suction audible on stomach, NASEEM compressed with light seriosang drainage, reyes with stent taped ddrainging light
yellow urine, stoma pink
[2024-06-25] MEDS: ZOSYN IV (00:53)
--- NOTE | 2024-06-25 00:59 | OR.RPT ---
Operative Report
Operative Report
DATE OF OPERATION: 06/25/2024
SURGEON: Giancarlo Pearson MD
PREOPERATIVE DIAGNOSIS: Perforated diverticulitis, fibroid uterus
POSTOPERATIVE DIAGNOSIS: Perforated diverticulitis, fibroid uterus
OPERATION: Exploratory laparotomy, sigmoidectomy, creation of end�colostomy, repair of serosal injury, rigid proctosigmoidoscopy; intraoperative consult for gynecology, who performed hysterectomy, right salpingo-oophorectomy, left salpingectomy
with likely oophorectomy and colon specimen; intraoperative consult to urology who performed cystoscopy with left ureteral stent placement; postoperative ultrasound guided TAP block by anesthesia
CO�SURGEONS:
1. Itzel Tripathi MD
2. Alisson Lewis MD
3. Nicholas Parekh MD
ASSISTANTS:
1. Robin Arnold MD
2. ART Childs
ANESTHESIA: General
ESTIMATED BLOOD LOSS: 100 mL
UOP: 1.5 L
IVF: 4.0 L
FINDINGS:
1. Serosal injury to small bowel upon abdominal entry; repaired with imbricating Lembert sutures
2. Severely enlarged fibroid uterus making exposure to the rectosigmoid and possible; gynecology consulted and performed hysterectomy
3. Severe acute on chronic inflammation of the sigmoid colon to the left pelvis with fibrosis; unable to confirm the left ureter; urology consulted and performed cystoscopy with left ureteral stent, confirming identification of the left ureter
4. Performed sigmoidectomy with end sigmoid colostomy
SPECIMENS:
1. Sigmoid colon
2. Uterus
3. Right fallopian tube
4. Right ovary
5. Left fallopian tube
DRAINS: 19 Faroese NASEEM into the pelvis (exiting the RLQ)
COMPLICATIONS: No immediate complications.
INDICATIONS: The patient is a 63-year-old female who recently presented for diverticulitis that was treated nonoperatively with IR aspiration and antibiotics. She presented back to the [facility] with worsening abdominal pain. A CT scan at
that time showed persistent diverticulitis with flecks of free air and significantly larger abscess. She went to IR for an attempt at transcutaneous drainage. However, on imaging in IR, there was significant worsening in free air, concerning for
worsening perforation. Therefore, surgery was recommended. The operation was discussed with the patient in detail, including risks, benefits and alternatives. My plan is to explore the abdomen, identify the site of perforation and remove the
segment of bowel, likely the sigmoid colon. I will then assess if a primary anastomosis is reasonable or if an ostomy would be safer. I anticipate needing to create an ostomy to reduce the risk of post-operative complications. Additionally, on
imaging, her uterus was seen to be significantly enlarged and may preclude adequate exposure and visualization of the pelvis. If this is the case, I will consult gynecology for hysterectomy with possible removal of adnexal structures. Risks
described included, but are not limited to, bleeding, infection, anastomotic leak or stenosis (if anastomosis created), rectal stump dehiscence, ureteral injury, bowel or solid organ injury, urinary or sexual dysfunction, recurrence of
diverticulitis, risks associated with a stoma if created (ie- skin irritation, ischemia, retraction, prolapse and parastomal hernia) and anesthetic risks. The patient understood and agreed to proceed.
PROCEDURE IN DETAIL: The patient was taken to the operating room and placed on the operating table in supine position. Sequential compression devices were placed bilaterally. General anesthesia was induced and the patient was intubated without
complication. The patient was placed in lithotomy position with both arms secured to the armboards in extended position. Rivera catheter was placed with sterile technique. The abdomen was prepped and draped in a sterile fashion. A time-out was then
performed verifying the correct patient, procedure, operative site, positioning, and special equipment. Patient had recently received a dose of IV Zosyn. A marking pen was used to venice out the midline.
Using a 15 blade scalpel, a midline incision was made from 2 cm above the umbilicus and extended caudally to 2 cm above the pubic symphysis. This was taken down to the level of the fascia with Bovie electrocautery and hemostasis was assured. The
linea alba was divided carefully with Bovie electrocautery. However, there was very little preperitoneal fat. After dividing the linea alba, there was a loop of small bowel immediately underneath. I extended the fascial incision superiorly and
inferiorly to the length of my skin incision, using my finger to protect abdominal contents. I checked the small bowel for cauterization injury. There may have been a slight, but minimal, serosal injury. Out of an abundance of caution, I oversewed
this spot with 3-0 Vicryl Lembert stitches oriented transversely. The small bowel loops were mildly distended. There is no feculent or purulent ascites. There was a significantly enlarged fibroid uterus making visualization of the pelvis very
difficult. I extended the skin incision to 1 cm above the pubic symphysis and the fascial incision down to the pubic symphysis to improve exposure. I placed an extra-large Riley wound protector. I put the patient in Trendelenburg with the left
side up. The proximal sigmoid colon appeared healthy. The distal sigmoid colon was densely adherent to the uterus as well as the left lower quadrant. Using blunt dissection, I was able to peel the initial portion of the sigmoid colon away from
the uterus and encountered an abscess cavity, which I immediately drained. Adjacent to the abscess was a sizable defect in the sigmoid colon wall. There was a patch of ischemic colon wall surrounding this perforation. I attempted to free the
sigmoid colon further down into the pelvis, however, the inflammation and adhesions were too dense. Furthermore, the size of the uterus was too large to work around. I worked proximally along the proximal sigmoid and descending colon to mobilize
this from a lateral to medial approach. I freed this from the white line of Toldt up to the proximal descending colon. I picked a point a few centimeters proximal to the inflammation and created a hole at the mesenteric border with electrocautery.
I stapled and divided at this point using the contour stapler with a green load. To aid in retraction, I set up the Bookwalter with 4 points of retraction. I placed a consult to SUPERVISOR P[employer]. Dr. Tripathi and Dr. German scrubbed in to perform a
hysterectomy. This will be dictated separately. I assisted them with this portion of the surgery. Due to the extent of inflammation, we were unable to identify the left ovary, but it most likely was included in the inflammatory mass of the sigmoid
colon.
As I was unable to get around the colon from the left side or anteriorly, I scored the peritoneum overlying the sacral promontory and entered the presacral space. I was able to dissect posteriorly in a healthy plane and entered the pelvis this way.
I identified the right ureter and kept this safe from my dissection. Using electrocautery, I freed up the peritoneum along the right aspect of the colon and took this anteriorly. I was able to free the left aspect of the colon using
electrocautery as the anatomy became more clear. The distal sigmoid colon was curled on itself and densely adherent to the proximal colon. Once the adhesions were freed from the pelvic inlet, I was able to pull this up in order to expose deeper
into the pelvis. The worst of the inflammation was along the left pelvis. I attempted to identify the left ureter by dissecting in the retroperitoneal space. I did identify a tubular structure that was dilated to a size larger than what is
typical for the ureter. Additionally, there was no vermiculation. I traced this proximally and this did appear to head towards the pelvis of the kidney. I traced this distally towards the bladder. However, the tubular structure went directly
into the inflammatory mass of the colon. In order to prevent ureteral injury, I placed a consult to urology. Dr. Parekh scrubbed in and performed a cystoscopy with left ureteral stent placement. This will be dictated separately. With the left
ureteral stent in place, I confirmed that the dilated tubular structure was in fact the ureter. I carefully dissected the left ureter from the inflammatory mass and it eventually peeled away. There was no injury to the left ureter. At this point,
I was able to reach healthy rectum for my distal transection point. I created a hole in the mesentery and stapled and divided using the contour stapler with a green load. I passed off the specimen for pathology.
I oversewed the rectal staple line with 3-0 Vicryl sutures in a Lembert fashion. I tagged the right aspect of the staple line with a 2-0 Prolene and left the tails long to assist with identification during reversal surgery. I washed out the
abdomen with 3 L of warm saline. There was no significant contamination from the perforation as this had been walled off by the uterus. I checked the placement of the NGT and it was palpated in good position within the stomach. To ensure the
rectal staple line was completely intact, I performed a leak test. Dr. Arnold performed rigid proctosigmoidoscopy. He evacuated some liquid stool and insufflated the rectal stump. There was no leak identified. He estimated the staple line was
about 8 to 9 cm from the anal verge.
The descending colon was nicely mobilized and reached the left upper quadrant easily. I picked a location in the left upper quadrant that was medial to the semilunaris line and did not encroach on the ribs or midline incision. Using an Allis, I
elevated the skin and created a circular incision with electrocautery. I coned out a small amount of subcutaneous tissue. Then using [place] and electrocautery, I took this down through the anterior and posterior layers of the fascia, making a
cruciate incision in each and splitting the rectus muscle with a Steff clamp. I ensured the colostomy tunnel was large enough by passing 2 fingers through easily. I wrapped the future colostomy in Seprafilm and brought the colon through the
colostomy tunnel, ensuring no twist to the mesentery. I directed the mesentery inferiorly. Next, I placed a 19Fr Amtti drain in the pelvis and brought it out through the right abdominal wall and secured it with a nylon drain stitch and connected
it to bulb suction. I once more examined the operative field, including the rectal stump, mesentery, and left retroperitoneum and hemostasis was assured.
The transverse colon and omentum was retracted over the small bowel. Seprafilm was placed just below the midline incision. The midline fascia was closed with a running 0 PDS, starting at the corners and ending in the middle. The skin was closed
with widely-gapped elliott and Telfa tanner and, ultimately, an Aquacel dressing was placed. The left-sided colostomy was matured in a Brooked fashion with 3-0 Vicryl stitches, and a stoma appliance was placed. Dry dressings were placed at the drain
site.
At this point, the procedure was complete. The patient was awoken and extubated without complication. All needle, sponge and instrument counts were reported as correct. The patient tolerated the procedure well and was transferred to the recovery
room in stable condition with nasogastric tube and Rivera in place.
Of note, Robin Arnold MD, clothing sales assistant, was necessary during this procedure for traction, countertraction, and exploratory purposes. I was present for the entire duration of the case.
DICTATED BY: Giancarlo Pearson MD
--- NOTE | 2024-06-25 01:03 | SUR.PHASEI ---
No longer diaphoretic, snoring, vss
--- NOTE | 2024-06-25 01:13 | SUR.PHASEI ---
Snoring less, vss, no c/o, n/gt draining light best yellow drainage
--- NOTE | 2024-06-25 01:17 | SUR.PHASEI ---
Assessment unchanged, stoma remains pink
[2024-06-25] MEDS: NORMOSOL-R/PLASMALYTE-A 1000 IV ×3 (01:56→20:45)
[2024-06-25] MEDS: D5/0.9% SODIUM CHLORIDE IV (01:59)
--- NOTE | 2024-06-25 02:01 | PTCARENOTE ---
Patient arrived to [facility] from PACU @0140. Patient is very drowsy/sleepy but arousable. NASEEM Rivera, NGT in place. Colostomy with red budded stoma. IVF infusing per order. VSS, 2L NC maintaining O2 saturation at 97%. No needs at this time. Assessment
on going.
[2024-06-25] MEDS: TORADOL IV (02:17)
[2024-06-25] MEDS: ZOSYN 50 IV ×4 (03:55→21:32)
[2024-06-25] MEDS: TORADOL 15 MG IV ×3 (05:56→18:26)
[2024-06-25] MEDS: SYNTHROID PO (06:07)
--- NOTE | 2024-06-25 07:39 | W.PN.UPDATE ---
Update Note
Progress Note Update
pt s/p colon resection/hysterectomy and ureteral stent placement last night
stable
reyes and stent in place
urine clear
plan
continue reyes and stent
will follow daily and determine timing of removal
discussed with [facility]
[2024-06-25 08:02] LABS: Hematocrit 29.3 % (37.0-47.0); Hemoglobin 10.2 g/dL (12.0-16.0); Mean Corp Hgb Conc. 34.8 g/dL (33.0-37.0); Mean Corpuscular Hgb 32.9 pg (27.0-31.0); Mean Corpuscular Volume 94.5 fL (81.0-99.0); Mean Platelet Volume 11.4 fL (7.4-10.4); Platelet Count 277 10^3/uL (130-400); White Blood Cell Count 13.7 10^3/uL (4.8-10.8)
[2024-06-25 08:16] LABS: Blood Urea Nitrogen 5 mg/dl (7-17); Calcium 6.8 mg/dl (8.4-10.2); Carbon Dioxide 30 mmol/L (22-30); Chloride 100 mmol/L (98-107); Estimated Creatinine Clearance 81 ml/min; Glucose 162 mg/dl (70-99); Magnesium 2.2 mg/dl (1.6-2.3); Potassium 3.6 mmol/L (3.5-5.1); Sodium 136 mmol/L (135-145); eGFR > 60.00
[2024-06-25] MEDS: DILAUDID 1 MG IV ×2 (08:17→20:00)
[2024-06-25] MEDS: OFIRMEV 100 IV ×3 (08:17→19:53)
--- NOTE | 2024-06-25 08:30 | W.PN.GS2 ---
Addendum entered and electronically signed by El Lovelace MD 06/25/24 09:43:
Patient seen and examined.
Reports pain. No nausea. No flatus or BM. Afebrile.
Gen: uncomfortable
HEENT: NGT bilious
Abd: soft, tender diffusely, mild distension, non-peritoneal, midline dressing with shadowing, NASEEM serosang
: Reyes with clear urine
Labs reviewed
63 yo female with h/o multiple diverticular attacks presenting with recurrent episode with perforation
POD #0 exlap, sigmoidectomy, creation of end-colostomy, repair of serosal injury, rigid proctosigmoidoscopy; DEVORAH, RSO, L salpingectomy with likely oophorectomy in colon specimen by Ob-Office Nurse; cystoscopy with left ureteral stent placement by Urology;
TAP block by anesthesia
Acute anemia secondary to expected operative blood losses and hemodilution with IVF
Tmax preop 101.3, currently AFVSS
Await bowel recovery
Hypocalcemia (7.4 corrected for low albumin)
No major postoperative concerns. No significant changes from a general surgery perspective. Plan to optimize pain control throughout the day.
--NPO/NGT
--Pain control: IV Tylenol, Toradol, IV Dilaudid PRN
--IVF
--Continue Reyes, appreciate Urology help
--C/w NASEEM drain, follow outputs
--Stoma nurse consult
--Abx: Zosyn and Vancomycin can likely tailor
--Medical management as per primary team
Original Note:
Today's Communication / Plan
-
NPO/IVF
Pain management
Assessment / Plan
-
63 yo female with h/o multiple diverticular attacks presenting with recurrent episode with perforation
POD #0 exlap, sigmoidectomy, creation of end-colostomy, repair of serosal injury, rigid proctosigmoidoscopy; DEVORAH, RSO, L salpingectomy with likely oophorectomy in colon specimen by Ob-Office Nurse; cystoscopy with left ureteral stent placement by Urology;
TAP block by anesthesia
Acute anemia secondary to expected operative blood losses and hemodilution with IVF
Tmax preop 101.3, currently AFVSS
Await bowel recovery
Hypocalcemia (7.4 corrected for low albumin)
--NPO/NGT
--Analgesics/antiemetics prn
--Continue reyes/ucath as per urology
--Continue IVF
--Scheduled and prn analgesics, increased prn dosage of dilaudid
--C/w NASEEM drain, follow outputs
--Stoma nurse consult
--c/w IV abx
--calcium gluconate x1 dose
--trend labs
--Medical management as per primary team
Subjective Data
-
Date of Service: June 25, 2024
Patient seen and examined at bedside with Dr. Lovelace. Denies vomiting but with some nausea. C/O abdominal pain. Tired.
Objective Data
-
Intake and Output
06/24/24 06/25/24 06/26/24
06:59 06:59 06:59
Intake Total 2099 / 2099 785 / 785
Output Total 200 / 200 2034
Balance 1900 / 1900 -1250 / -1250
Intake:
IV fluids (Total) 1999 725 / 725
normosol 100 / 100
nss 1999
IV piggybacks 100 / 100
nss 100 / 100
Amount instilled into GI Tube ( 60 / 60
Total)
[place] Sump 60 / 60
Output:
Drain Output (Total) 135 / 135
Right Middle Abdomen Dariel- 135 / 135
[place]
Gastrointestinal tube output ( 50 / 50
Total)
[place] Sump 50 / 50
Urine, Reyes 1850 / 1849
Urine, Voided 200 / 200
Other:
Number of approximated MODERATE 1
amounts of urine
Vital Signs
Temp Pulse Resp BP Pulse Ox
97.9 F 59 14 139/75 94
06/25/24 04:38 06/25/24 07:10 06/25/24 07:10 06/25/24 07:10 06/25/24 07:10
Lab Results
06/25/24 07:04
06/25/24 07:04
Calcium 6.8 mg/dl (8.4-10.2) L* D 06/25/24 07:04
Magnesium 2.2 mg/dl (1.6-2.3) 06/25/24 07:04
Total Bilirubin 0.7 mg/dl (0.2-1.3) 06/23/24 17:33
AST 24 U/L (14-36) 06/23/24 17:33
ALT 27 U/L (0-35) 06/23/24 17:33
Alkaline Phosphatase 83 U/L (38-126) 06/23/24 17:33
Total Protein 6.4 g/dl (6.3-8.2) 06/23/24 17:33
Albumin 3.2 g/dl (3.5-5.0) L 06/23/24 17:33
Physical Exam
-
General: NAD
HEENT: Sclera anicteric
Neuro: Oriented x3
Resp: No distress, RRR
ABD: Soft, mild to mod distention, generalized tenderness, NGT with bilious outputs, Stoma pink/viable without flatus/stool in appliance, NASEEM with SSF
: Reyes with pink urine, ucath in place
Skin: midline incision with intact dressing
Patient has a reyes catheter: Yes
[2024-06-25] MEDS: CALCIUM GLUCONATE 100 IV (09:29)
--- NOTE | 2024-06-25 09:35 | W.PN.ID1 ---
Date of Service
Date of Service: June 25, 2024
Today's Communication
Continue Zosyn
Assessment / Plan
# Perforated sigmoid diverticulitis with free air and abscess
# Fever
# Leukocytosis
# History of C. difficile
# Uterine fibroid
- 06/24 s/p sigmoidectomy, creation of end-colostomy, repair of serosal injury, DEVORAH, RSO, L salpingectomy, left ureteral stent placement
-Blood cultures neg to date
- Continue Zosyn (d3)
-Trend temperature and white count
-Continue prophylactic oral vancomycin 125 mg daily for history of C. difficile.
Chief Complaint
-: Other (perforated diverticulitis)
Subjective / Review of Systems
+postop pain
Vital Signs / Physical Exam
Vital Signs
Vital Signs
Temp Pulse Resp BP Pulse Ox
97.9 F 59 14 139/75 94
06/25/24 04:38 06/25/24 07:10 06/25/24 07:10 06/25/24 07:10 06/25/24 07:10
Physical Exam
Constitutional: Acutely Ill
Cardiovascular: Regular Rate and S1/S2
Pulmonary: Clear
Gastrointestinal: Soft, Tender (loer abd) and Decreased Bowel Sounds
Extremities: Negative Edema
Objective Data
Lab Data
Lab Results
06/25/24 07:04
06/25/24 07:04
Estimated Creat Clear 81 ml/min 06/25/24 07:04
Lactic Acid Cancelled 06/23/24 23:00
Total Bilirubin 0.7 mg/dl (0.2-1.3) 06/23/24 17:33
AST 24 U/L (14-36) 06/23/24 17:33
ALT 27 U/L (0-35) 06/23/24 17:33
Alkaline Phosphatase 83 U/L (38-126) 06/23/24 17:33
Most recent labs reviewed.
06/24/24 CT a/p wo contrast: New large amount of intraperitoneal free air suspicious for perforated acute diverticulitis, a significant change compared to the CT from yesterday. Given these findings, percutaneous drainage of pelvic abscess not
performed.
06/23/24 CT a/p: Large mixed attenuation pelvic mass midline to the right again seen measuring greater than 10 cm most likely a degenerated uterine fibroid, predominantly stable in comparison to recent prior study. Markedly limited evaluation of
intestinal tract without oral contrast and with paucity of intrapelvic fat with suspected prominent thickening of the wall of the sigmoid colon suspicious for colitis or diverticulitis with A FEW SMALL ACCOMPANYING ABNORMAL FOCAL FLUID COLLECTIONS
SUSPICIOUS FOR ABSCESSES, largest on the left pelvic sidewall measuring 4.7 cm in greatest dimension, slightly increased from recent prior study.
--- NOTE | 2024-06-25 10:24 | W.PN.HOSP.TC ---
Today's Communication/Plan
-
Await for bowel function recovery
Pain control
IV fluids
IV Zosyn
Strict n.p.o. per surgery
Assessment / Plan
Assessment / Plan
Impression:
Acute severe recurrent complicated diverticulitis with sigmoid perforation
Sepsis secondary to above
Uterine fibroid on CT scan
Hypocalcemia
Other conditions:
Prior history of C. difficile.
Hypothyroidism on replacement
Plan:
CT AP:
Large mixed attenuation pelvic mass midline to the right again seen measuring greater than 10 cm most likely a degenerated uterine fibroid, predominantly stable in comparison to recent prior study.
Markedly limited evaluation of intestinal tract without oral contrast and with paucity of intrapelvic fat with suspected prominent thickening of the wall of the sigmoid colon suspicious for colitis or diverticulitis with A FEW SMALL ACCOMPANYING
ABNORMAL FOCAL FLUID COLLECTIONS SUSPICIOUS FOR ABSCESSES, largest on the left pelvic sidewall measuring 4.7 cm in greatest dimension, slightly increased from recent prior study.
Patient with episode of perforation sigmoid
Status post emergent ex lap with sigmoidectomy, creation of end colostomy, repair of serosal injury, repair of serosal injury, rigid proctosigmoidoscopy; DEVORAH, RSO, L salpingectomy with likely oophorectomy in colon specimen by [employer] Stripper; cystoscopy
with left ureteral stent placement by Urology; TAP block by anesthesia
Continue with the NG tube
Monitor ostomy output
Continue with pain control
Continue with IV fluids
Strict n.p.o. and no medication per surgery.
Status post left ureteral stent placement and Rivera catheter placement.
Monitor urinary output. Rivera management per urology
Monitor NASEEM drain output.
Downtrend in hemoglobin likely dilutional and also with possible blood loss
Currently on IV Zosyn. P.o. vanc held as strict NPO.
Hypothyroidism
-If with prolonged n.p.o. status may need to consider switching to IV
DVT prophylaxis Lovenox
Full code
Discussed with patient by the bedside in details
Anticipated Discharge: > 48 hours
Subjective/Interval History
-
Date of Service: June 25, 2024
states of abd pain and discomfort
states of dry mouth
Objective Data
-
Labs:
Laboratory Results
06/25/24
07:04
WBC 13.7 H
Hgb 10.2 L
Hct 29.3 L
Plt Count 277
Sodium 136
Potassium 3.6
Chloride 100
Carbon Dioxide 30
BUN 5 L
Creatinine 0.5 L
Glucose 162 H
Calcium 6.8 L* D
Vital Signs:
Vital Signs
Temp Pulse Resp BP Pulse Ox
97.9 F 59 14 139/75 94
06/25/24 04:38 06/25/24 07:10 06/25/24 07:10 06/25/24 07:10 06/25/24 07:10
I&O
06/24/24 06/25/24 06/26/24
06:59 06:59 06:59
Intake Total 2099 / 2099 785 / 785
Output Total 200 / 200 2034 / 2034
Balance 1900 / 1900 -1250 / -1250
Physical Exam
-
General: Pain
HEENT: Normocephalic, Atraumatic and Moist Mucous Membranes
Respiratory: Clear to Auscultation
Cardiac: Regular Rhythm and S1/S2; Negative Murmur, Rub or Gallop
GI: Tender, Ostomy and Other (NGT noted with biliary drainage. Ostomy w/no stool output. Midline scar covered in dressing. ); Negative Organomegaly
Rectal: Deferred by Provider
Genito-urinary: Rivera
Musculoskeletal: No Clubbing, No Cyanosis and No Edema
Skin: Negative Rash
Neuro: Awake, Alert, Oriented, AO x 3, No Motor Deficits and Nonfocal/Grossly Intact
Psych: Calm
Data Reviewed
-
Total Time Spent with Patient (in minutes): 55
[2024-06-25 10:29] LABS: % Basophils 0.1 % (0-2); % Immature Granulocytes 0.2 % (0-0.5); % Monocytes 3.2 % (1.7-9.3); % Neutrophils 90.5 % (42.2-75.2); Absolute Lymphocytes 0.8 10^3/uL (1.2-3.4); Absolute Monocytes 0.4 10^3/uL (0.1-0.6); Absolute Neutrophils 12.4 10^3/uL (1.4-6.5); Nucleated Red Blood Cells % 0 %
[2024-06-25] MEDS: ZOFRAN 4 MG IV (14:30)
--- NOTE | 2024-06-25 14:36 | W.PN.OBG.DWH ---
Today's Communication / Plan
-
cont postop care
Assessment/Plan
-
POD#0 S/P exploratory lap, sigmoidectomy, end to end anastomosis, sigmoidectomy, creation of end-colostomy, repair of serosal injury, rigid proctosigmoidoscopy; DEVORAH, RSO, Left salpingectomy with likely cystoscopy with left ureteral stent placement
by Urology; TAP block by [facility] RSO and left salpingectomy- suspect that left ovary was involved in bowel mass that was removed.
This was performed as intraoperative consult at time of her sigmoidectomy.
IV ABx per ID
Stable from care provider standpoint.
Continue postop care, recovery.
time with review of record, discussion with pt brother, documentation today was over 20 min.
Subjective Data
-
POD#1
Pt asleep. Brother in room.He reports Agatha has been sleeping most of day.
Objective Data
-
Laboratory Results
06/25/24 07:04
06/25/24 07:04
Vital Signs
Temp Pulse Resp BP Pulse Ox
97.5 F 54 14 115/68 93
06/25/24 11:05 06/25/24 11:05 06/25/24 11:05 06/25/24 11:05 06/25/24 11:05
POD #0 exlap, sigmoidectomy, creation of end-colostomy, repair of serosal injury, rigid proctosigmoidoscopy; DEVORAH, RSO, L salpingectomy with likely oophorectomy in colon specimen by [employer]; cystoscopy with left ureteral stent placement by Urology;
TAP block by
VSS Tmax 101.3 at 0745 yesterday, afeb since
COr: regular rate
Pulm: clear bilaterally
Abd: dressing in place, soft hypoactive BS
ext SCDs on
No active vaginal bleeding.
[2024-06-25] MEDS: LOVENOX 40 MG SC (18:27)
[2024-06-26] MEDS: TORADOL 15 MG IV ×2 (00:59→06:16)
[2024-06-26] MEDS: OFIRMEV 100 IV ×4 (01:57→23:03)
[2024-06-26 03:00] VITALS: BP 139/78
--- NOTE | 2024-06-26 03:13 | PTCARENOTE ---
Patient colostomy bag found to be positive for flatus.
[2024-06-26] MEDS: ZOSYN 50 IV ×4 (03:18→22:00)
[2024-06-26] MEDS: ZOFRAN 4 MG IV ×3 (03:18→15:26)
[2024-06-26] MEDS: NORMOSOL-R/PLASMALYTE-A 1000 IV ×3 (05:50→23:04)
[2024-06-26 06:00] VITALS: BMI 24.1
[2024-06-26 06:50] VITALS: BP 145/82
[2024-06-26 07:06] LABS: % Basophils 0.1 % (0-2); % Immature Granulocytes 0.5 % (0-0.5); % Lymphocytes 7.3 % (20.5-51.1); % Monocytes 4.9 % (1.7-9.3); % Neutrophils 87.2 % (42.2-75.2); Absolute Immature Granulocytes 0.1 10^3/uL (0-0.05); Absolute Lymphocytes 1.2 10^3/uL (1.2-3.4); Absolute Monocytes 0.8 10^3/uL (0.1-0.6); Absolute Neutrophils 14.2 10^3/uL (1.4-6.5); Hematocrit 25.7 % (37.0-47.0); Hemoglobin 8.9 g/dL (12.0-16.0); Mean Corp Hgb Conc. 34.6 g/dL (33.0-37.0); Mean Corpuscular Volume 95.2 fL (81.0-99.0); Mean Platelet Volume 11.7 fL (7.4-10.4); Nucleated Red Blood Cells % 0 %; Platelet Count 315 10^3/uL (130-400); White Blood Cell Count 16.2 10^3/uL (4.8-10.8)
[2024-06-26 07:54] LABS: ALT (SGPT) 16 U/L (0-35); AST (SGOT) 23 U/L (14-36); Albumin 2.2 g/dl (3.5-5.0); Alkaline Phosphatase 64 U/L (38-126); Blood Urea Nitrogen 12 mg/dl (7-17); Calcium 7.7 mg/dl (8.4-10.2); Carbon Dioxide 36 mmol/L (22-30); Chloride 97 mmol/L (98-107); Estimated Creatinine Clearance 81 ml/min; Glucose 115 mg/dl (70-99); Magnesium 2.5 mg/dl (1.6-2.3); Phosphorus 3.1 mg/dl (2.5-4.5); Potassium 3.5 mmol/L (3.5-5.1); Sodium 137 mmol/L (135-145); Total Bilirubin 0.4 mg/dl (0.2-1.3); Total Protein 4.6 g/dl (6.3-8.2); eGFR > 60.00
[2024-06-26] MEDS: DILAUDID 1 MG IV ×3 (08:08→20:23)
--- NOTE | 2024-06-26 08:15 | W.PN.URO.CBU ---
Today's Communication / Plan
-
contiue reyes and stent
Assessment / Plan
-
s/p hysterectomy and colon resection for perforated diverticulitis
cysto and left ureteral stent placement performed intra-op to identify left ureter- which closely abutted disease process
plan to continue reyes and stent for now
cr level normal/some expected hematuria
evaluated on day to day basis for removal
Diagnosis
-
Date of Service: June 26, 2024
-
Patient Diagnosis:
perforated diverticulitis s/p hysterectomy and colon resection
cysto and left ureteral stent placement
06/24
Subjective
-
pt still tired and with pain
ng/reyes and left ureteral stent in place
Objective
-
Vital Signs
Temp Pulse Resp BP Pulse Ox
97.7 F 65 15 145/82 94
06/26/24 06:50 06/26/24 06:50 06/26/24 06:50 06/26/24 06:50 06/26/24 06:50
Intake and Output
06/25/24 06/26/24 06/27/24
06:59 06:59 06:59
Intake Total 785 / 785 2150 / 2150
Output Total 2034 2485 / 2485
Balance -1250 / -1250 -335 / -335
Intake:
IV fluids (Total) 725 / 725 1500 / 1500
normosol 100 / 100
IV piggybacks 500 / 500
Amount instilled into GI Tube ( 60 / 60 150 / 150
Total)
[place] Sump 60 / 60 150 / 150
Output:
Drain Output (Total) 135 / 135 110 / 110
Right Middle Abdomen Dariel- 135 / 135 110 / 110
[place]
Gastrointestinal tube output ( 50 / 50 1300 / 1300
Total)
[place] Sump 1300 / 1300
Urine, Reyes 1849 / 1849 1075 / 1075
Other:
Number of approximated MODERATE 1
amounts of urine
Laboratory Results
06/26/24 05:03
Physical Exam
-
General - no acute distress
Genitalia - reyes and stent in place
[2024-06-26] MEDS: PROTONIX IV 40 MG IV (09:14)
[2024-06-26] MEDS: NSS (PRESERVATIVE FREE) 10 ML IV (09:14)
--- NOTE | 2024-06-26 10:29 | W.PN.GS2 ---
Addendum entered and electronically signed by El Lovelace MD 06/26/24 14:01:
Patient seen and examined.
Reports pain and decreased energy. No nausea or vomiting. Minimal ambulation.
Gen: uncomfortable
HEENT: NGT bilious
Abd: soft, tender diffusely, mild distension, non-peritoneal, midline dressing with shadowing, NASEEM serosang
: Reyes with clear urine
Labs reviewed
63 yo female with h/o multiple diverticular attacks presenting with recurrent episode with perforation
POD #1 exlap, sigmoidectomy, creation of end-colostomy, repair of serosal injury, rigid proctosigmoidoscopy; DEVORAH, RSO, L salpingectomy with likely oophorectomy in colon specimen by [employer] Account Manager; cystoscopy with left ureteral stent placement by Urology;
TAP block by anesthesia
AVSS
Acute anemia secondary to expected operative blood losses and hemodilution with IVF, repeat stable
Hypocalcemia (7.4 corrected for low albumin)
No major postoperative concerns. No significant changes from a general surgery perspective.
--NPO/NGT
--Pain control: IV Tylenol, Toradol, IV Dilaudid PRN
--IVF
--Continue Reyes, appreciate Urology help
--C/w NASEEM drain, follow outputs
--Stoma nurse consult
--Abx: Zosyn and Vanco
--Medical management as per primary team
Original Note:
Today's Communication / Plan
-
NPO/NGT
Assessment / Plan
-
63 yo female with h/o multiple diverticular attacks presenting with recurrent episode with perforation
POD #1 exlap, sigmoidectomy, creation of end-colostomy, repair of serosal injury, rigid proctosigmoidoscopy; DEVORAH, RSO, L salpingectomy with likely oophorectomy in colon specimen by [employer] Account Manager; cystoscopy with left ureteral stent placement by Urology;
TAP block by anesthesia
H/H trended down today, NASEEM with light SSF. Some hematuria/blood tinged bile in NGT but not in significant amounts
Leukocytosis, trending up
AFVSS
Await bowel recovery
--NPO/NGT
--Analgesics/antiemetics prn
--Continue reyes/ucath as per urology
--Continue IVF
--Scheduled and prn analgesics
--C/w NASEEM drain, follow outputs
--Stoma nurse consult
--c/w IV abx as per ID
--trend labs
--Medical management as per primary team
Subjective Data
-
Date of Service: June 26, 2024
Patient seen and examined at bedside with Dr. Lovelace. Parveen n/v. Pain control has been an issue.
Objective Data
-
Intake and Output
06/25/24 06/26/24 06/27/24
06:59 06:59 06:59
Intake Total 785 / 785 2150 / 2150 50 / 50
Output Total 2034 / 2034 2485 / 2485
Balance -1250 / -1250 -335 / -335 50 / 50
Intake:
IV fluids (Total) 725 / 725 1500 / 1500
normosol 100 / 100
IV piggybacks 500 / 500 50 / 50
Amount instilled into GI Tube ( 60 / 60 150 / 150
Total)
[place] Sump 60 / 60 150 / 150
Output:
Drain Output (Total) 135 / 135 110 / 110
Right Middle Abdomen Dariel- 135 / 135 110 / 110
[place]
Gastrointestinal tube output ( 50 / 50 1300 / 1300
Total)
[place] Sump 50 / 50 1300 / 1300
Urine, Reyes 185 / 1850 1075 / 1075
Other:
Number of approximated MODERATE 1
amounts of urine
Vital Signs
Temp Pulse Resp BP Pulse Ox
97.7 F 65 15 145/82 94
06/26/24 06:50 06/26/24 06:50 06/26/24 06:50 06/26/24 06:50 06/26/24 06:50
Lab Results
06/26/24 05:03
Calcium 7.7 mg/dl (8.4-10.2) L 06/26/24 05:03
Phosphorus 3.1 mg/dl (2.5-4.5) 06/26/24 05:03
Magnesium 2.5 mg/dl (1.6-2.3) H 06/26/24 05:03
Total Bilirubin 0.4 mg/dl (0.2-1.3) 06/26/24 05:03
AST 23 U/L (14-36) 06/26/24 05:03
ALT 16 U/L (0-35) 06/26/24 05:03
Alkaline Phosphatase 64 U/L (38-126) 06/26/24 05:03
Total Protein 4.6 g/dl (6.3-8.2) L D 06/26/24 05:03
Albumin 2.2 g/dl (3.5-5.0) L 06/26/24 05:03
Physical Exam
-
General: NAD
Resp: No distress, RRR
ABD: Soft, mild to mod distention, generalized tenderness, NGT with bilious blood tinged outputs, Stoma pink/viable without flatus/stool in appliance, NASEEM with SSF
: Reyes with pink urine, ucath in place
Skin: midline incision with intact dressing
Patient has a reyes catheter: Yes
--- NOTE | 2024-06-26 10:34 | W.PN.ID1 ---
Date of Service
Date of Service: June 26, 2024
Today's Communication
Continue Zosyn and enteric Vancomycin.
Assessment / Plan
# Perforated sigmoid diverticulitis with free air and abscess
# Fever - resolved
# Leukocytosis
# History of C. difficile
# Uterine fibroid
- 06/24 s/p sigmoidectomy, creation of end-colostomy, repair of serosal injury, DEVORAH, RSO, L salpingectomy, left ureteral stent placement
-Blood cultures neg to date
- Continue Zosyn (d4)
-Trend white count
-Continue prophylactic enteric vancomycin 125 mg daily for history of C. difficile.
Chief Complaint
-: Other (perforated diverticulitis)
Vital Signs / Physical Exam
Vital Signs
Vital Signs
Temp Pulse Resp BP Pulse Ox
97.7 F 65 15 145/82 94
06/26/24 06:50 06/26/24 06:50 06/26/24 06:50 06/26/24 06:50 06/26/24 06:50
Physical Exam
Constitutional: Acutely Ill
Cardiovascular: Regular Rate and S1/S2
Pulmonary: Clear
Gastrointestinal: Soft, Tender (loer abd) and Decreased Bowel Sounds
Genito-Urinary: Rivera and Hematuria
Extremities: Negative Edema
Objective Data
Lab Data
Lab Results
06/26/24 05:03
Estimated Creat Clear 81 ml/min 06/26/24 05:03
Lactic Acid Cancelled 06/23/24 23:00
Total Bilirubin 0.4 mg/dl (0.2-1.3) 06/26/24 05:03
AST 23 U/L (14-36) 06/26/24 05:03
ALT 16 U/L (0-35) 06/26/24 05:03
Alkaline Phosphatase 64 U/L (38-126) 06/26/24 05:03
Most recent labs reviewed.
06/24/24 CT a/p wo contrast: New large amount of intraperitoneal free air suspicious for perforated acute diverticulitis, a significant change compared to the CT from yesterday. Given these findings, percutaneous drainage of pelvic abscess not
performed.
06/23/24 CT a/p: Large mixed attenuation pelvic mass midline to the right again seen measuring greater than 10 cm most likely a degenerated uterine fibroid, predominantly stable in comparison to recent prior study. Markedly limited evaluation of
intestinal tract without oral contrast and with paucity of intrapelvic fat with suspected prominent thickening of the wall of the sigmoid colon suspicious for colitis or diverticulitis with A FEW SMALL ACCOMPANYING ABNORMAL FOCAL FLUID COLLECTIONS
SUSPICIOUS FOR ABSCESSES, largest on the left pelvic sidewall measuring 4.7 cm in greatest dimension, slightly increased from recent prior study.
[2024-06-26 11:00] VITALS: BP 134/73
--- NOTE | 2024-06-26 11:14 | W.PN.HOSP.TC ---
Today's Communication/Plan
-
Await for bowel function recovery
Pain control
IV fluids
IV Zosyn
Strict n.p.o. per surgery
Assessment / Plan
Assessment / Plan
Impression:
Acute severe recurrent complicated diverticulitis with sigmoid perforation
Sepsis secondary to above
Uterine fibroid on CT scan
Hypocalcemia
Other conditions:
Prior history of C. difficile.
Hypothyroidism on replacement
Plan:
CT AP:
Large mixed attenuation pelvic mass midline to the right again seen measuring greater than 10 cm most likely a degenerated uterine fibroid, predominantly stable in comparison to recent prior study.
Markedly limited evaluation of intestinal tract without oral contrast and with paucity of intrapelvic fat with suspected prominent thickening of the wall of the sigmoid colon suspicious for colitis or diverticulitis with A FEW SMALL ACCOMPANYING
ABNORMAL FOCAL FLUID COLLECTIONS SUSPICIOUS FOR ABSCESSES, largest on the left pelvic sidewall measuring 4.7 cm in greatest dimension, slightly increased from recent prior study.
Patient with episode of perforation sigmoid
Status post emergent ex lap with sigmoidectomy, creation of end colostomy, repair of serosal injury, repair of serosal injury, rigid proctosigmoidoscopy; DEVORAH, RSO, L salpingectomy with likely oophorectomy in colon specimen by [employer]; cystoscopy
with left ureteral stent placement by Urology; TAP block by anesthesia
Continue with the NG tube
Monitor ostomy output
Continue with pain control
Continue with IV fluids
Strict n.p.o. and no medication per surgery.
Status post left ureteral stent placement and Rivera catheter placement.
Monitor urinary output. Rivera management per urology
Monitor NASEEM drain output.
Downtrend in hemoglobin likely dilutional and also with possible blood loss. Repeat h/h pending.
Currently on IV Zosyn. P.o. vanc held as strict NPO.
Hypothyroidism
-If with prolonged n.p.o. status may need to consider switching to IV
DVT prophylaxis Lovenox
Full code
Discussed with patient brother by the bedside in details on 06/25/24
Anticipated Discharge: > 48 hours
Subjective/Interval History
-
Date of Service: June 26, 2024
states of abd pain and nausea
Objective Data
-
Labs:
Laboratory Results
06/26/24 06/26/24
05:03 12:00
WBC 16.2 H
Hgb 8.9 L Pending
Hct 25.7 L Pending
Plt Count 315
Sodium 137
Potassium 3.5
Chloride 97 L
Carbon Dioxide 36 H
BUN 12
Creatinine 0.6
Glucose 115 H
Calcium 7.7 L
Total Bilirubin 0.4
AST 23
ALT 16
Alkaline Phosphatase 64
Vital Signs:
Vital Signs
Temp Pulse Resp BP Pulse Ox
97.6 F 58 16 134/73 95
06/26/24 11:00 06/26/24 11:00 06/26/24 11:00 06/26/24 11:00 06/26/24 11:00
I&O
06/25/24 06/26/24 06/27/24
06:59 06:59 06:59
Intake Total 785 / 785 2150 / 2150 50 / 50
Output Total 2034 / 2034 2485 / 2485
Balance -1250 / -1250 -335 / -335 50 / 50
Physical Exam
-
General: Pain
HEENT: Normocephalic, Atraumatic and Moist Mucous Membranes
Respiratory: Clear to Auscultation
Cardiac: Regular Rhythm and S1/S2; Negative Murmur, Rub or Gallop
GI: Tender, Ostomy and Other (NGT noted with biliary drainage. Ostomy w/no stool output. Midline scar covered in dressing. ); Negative Organomegaly
Rectal: Deferred by Provider
Genito-urinary: Rivera
Musculoskeletal: No Clubbing, No Cyanosis and No Edema
Skin: Negative Rash
Neuro: Awake, Alert, Oriented, AO x 3, No Motor Deficits and Nonfocal/Grossly Intact
Psych: Calm
[2024-06-26] MEDS: FIRVANQ 125 MG TUBE (11:28)
[2024-06-26 12:01] LABS: Hematocrit 25.4 % (37.0-47.0); Hemoglobin 8.6 g/dL (12.0-16.0)
--- NOTE | 2024-06-26 14:52 | W.PN.OBG.DWH ---
Today's Communication / Plan
-
POD#1exploratory lap, sigmoidectomy, end to end anastomosis, creation of end-colostomy, repair of serosal injury, rigid proctosigmoidoscopy; DEVORAH, RSO, Left salpingectomy, cystoscopy with left ureteral stent placement by Urology; TAP block for
perforated bowel diverticulum, pelvic mass involving bowel and suspected involvement of left ovary.
Severe diverticular disease.
Enlarged fibroid uterus
-Reviewed my involvement in her surgery to perform hysterectomy due to enlargement and difficulty with proper surgical exposure due to large size. Explained suspicion that left ovary is removed with pelvic mass.
-Postop surgical mgmt per colorectal/surgery service
-IV abx per ID
-no caravan park and camping ground manager issues to follow. Will check path to see if left ovarian tissue is identified in pelvic mass. Right ovary was extremely atrophic and smaller than a dime. No visible left ovary was identifiable after removal of sigmoid colon/pelvic mass.
Subjective Data
-
POD#1 PT awake. Reports sore throat, feeling tired.
No CP or SOB. Had some nausea
Objective Data
-
Laboratory Results
06/26/24 11:45
06/26/24 05:03
Vital Signs
Temp Pulse Resp BP Pulse Ox
97.6 F 58 16 134/73 95
06/26/24 11:00 06/26/24 11:00 06/26/24 11:00 06/26/24 11:00 06/26/24 11:00
VSS afeb
cor regular rate
abd: soft ND dressing in place
ext: no calf pain
[2024-06-26 15:00] VITALS: BP 150/78
[2024-06-26] MEDS: LOVENOX 40 MG SC (17:47)
[2024-06-26 19:00] VITALS: BP 137/77
[2024-06-26] MEDS: NORMOSOL-R/PLASMALYTE-A IV (21:56)
[2024-06-26 23:00] VITALS: BP 155/81
[2024-06-27] VITALS (8 sets, daily range): BP systolic 128–158; BP diastolic 67–82; PULSE 56–60; O2SAT 94–95; BMI 24.3
[2024-06-27] MEDS: DILAUDID 1 MG IV ×2 (00:55→06:13)
[2024-06-27] MEDS: ZOFRAN 4 MG IV ×2 (00:55→12:02)
[2024-06-27] MEDS: ZOSYN 50 IV ×4 (03:40→21:07)
[2024-06-27] MEDS: OFIRMEV 100 IV ×4 (04:36→23:59)
[2024-06-27] MEDS: COMPAZINE 10 MG IV ×3 (06:12→21:07)
[2024-06-27 06:54] LABS: % Basophils 0.2 % (0-2); % Eosinophils 0.3 % (0-6); % Immature Granulocytes 0.6 % (0-0.5); % Lymphocytes 10.8 % (20.5-51.1); % Monocytes 5.1 % (1.7-9.3); Absolute Eosinophils 0.1 10^3/uL (0-0.7); Absolute Immature Granulocytes 0.1 10^3/uL (0-0.05); Absolute Lymphocytes 1.8 10^3/uL (1.2-3.4); Absolute Monocytes 0.9 10^3/uL (0.1-0.6); Absolute Neutrophils 14.1 10^3/uL (1.4-6.5); Hemoglobin 8.9 g/dL (12.0-16.0); Mean Corp Hgb Conc. 34.2 g/dL (33.0-37.0); Mean Corpuscular Hgb 32.4 pg (27.0-31.0); Mean Corpuscular Volume 94.5 fL (81.0-99.0); Mean Platelet Volume 11.3 fL (7.4-10.4); Nucleated Red Blood Cells % 0 %; Platelet Count 390 10^3/uL (130-400); Red Blood Cell Count 2.75 10^6/uL (4.20-5.40)
[2024-06-27 07:03] LABS: ALT (SGPT) 17 U/L (0-35); AST (SGOT) 25 U/L (14-36); Albumin 2.3 g/dl (3.5-5.0); Alkaline Phosphatase 78 U/L (38-126); Blood Urea Nitrogen 19 mg/dl (7-17); Calcium 7.8 mg/dl (8.4-10.2); Carbon Dioxide 32 mmol/L (22-30); Chloride 95 mmol/L (98-107); Estimated Creatinine Clearance 61 ml/min; Glucose 99 mg/dl (70-99); Potassium 3.8 mmol/L (3.5-5.1); Sodium 135 mmol/L (135-145); Total Bilirubin 0.4 mg/dl (0.2-1.3); Total Protein 4.9 g/dl (6.3-8.2); eGFR > 60.00
--- NOTE | 2024-06-27 07:12 | W.PN.URO.CBU ---
Today's Communication / Plan
-
continue reyes and stent today
Assessment / Plan
-
s/p hysterectomy and colon resection for perforated diverticulitis
cysto and left ureteral stent placement performed intra-op to identify left ureter- which closely abutted disease process
plan to continue reyes and stent for now
cr level normal/some expected hematuria
evaluated on day to day basis for removal- likely plan for at least stent removal tomorrow
Diagnosis
-
Date of Service: June 27, 2024
-
Patient Diagnosis:
Post Op Day:
Patient Diagnosis:
perforated diverticulitis s/p hysterectomy and colon resection
cysto and left ureteral stent placement
06/24
Subjective
-
pt still feeling poorly with nausea
reyes and stent in place- urine jewell colored
ct stable
Objective
-
Vital Signs
Temp Pulse Resp BP Pulse Ox
98.3 F 53 18 158/78 94
06/27/24 03:00 06/27/24 03:00 06/27/24 03:00 06/27/24 03:00 06/27/24 03:00
Intake and Output
06/26/24 06/27/24 06/28/24
06:59 06:59 06:59
Intake Total 2150 / 2150 1999 / 1999
Output Total 2485 / 2485 2395 / 2395
Balance -335 / -335 -395 / -395
Intake:
Oral fluids 60 / 60
IV fluids (Total) 1500 / 1500 1250 / 1250
IV piggybacks 500 / 500 600 / 600
Amount instilled into GI Tube ( 150 / 150 90 / 90
Total)
[place] Sump 150 / 150 90 / 90
Output:
Drain Output (Total) 110 / 110 70 / 70
Right Middle Abdomen Dariel- 110 / 110 70 / 70
[place]
Gastrointestinal tube output ( 1300 / 1300 325 / 325
Total)
[place] Sump 1300 / 1300 325 / 325
Urine, Reyes 1075 / 1075 1999
Laboratory Results
06/27/24 05:11
06/27/24 05:11
Review of Systems
-
Constitutional: Fatigue
Respiratory: No Symptoms
Cardiac: No Symptoms
Abdomen/GI: Abdominal Pain and Nausea
: Other (reyes)
Physical Exam
-
General - no acute distress
Genitalia - reyes and single stent in place
--- NOTE | 2024-06-27 08:33 | W.PN.CRS1 ---
Today's Communication / Plan
-
As below
Assessment/Plan
-
63-year-old female with hypothyroidism, HTN, history of C. difficile, fibroid uterus and recurrent diverticulitis (recent admission for diverticulitis with abscess s/p IR aspiration) who presented with worsening abdominal pain, initially found to
have worsening diverticulitis with significantly larger abscess, but subsequently developed free air
POD 3 ex lap, sigmoidectomy, drainage of abscess, DEVORAH, RSO, left salpingectomy, cystoscopy with left ureteral stent, TAP block
AFVSS
WBC 17.0 from 16.2, Hb 9.0 from 8.6, CR 0.8, UOP 2.0 L
�Leukocytosis; slightly up from yesterday but afebrile and asymptomatic; trend daily
�Continue NGT to low continuous suction due to nausea overnight; continue IVF
�Nausea may be related to pain
�Continue pain control with Ofirmev and Dilaudid as needed; will decrease Dilaudid dosing and add Toradol
�Continue DVT PPx with Lovenox
� NASEEM to bulb suction
� Appreciate ID, continue Zosyn and p.o. vancomycin
� OOB; appreciate PT
� Appreciate hospitalist
Subjective Data
Subjective Data
Date of Service: June 27, 2024
No overnight events. Feeling nauseous this morning. No vomiting. NGT is functioning. Per nurse, nausea may be related to Dilaudid.
Pain controlled.
+ Ostomy function + Rivera
Objective Data
-
Vital Signs
Temp Pulse Resp BP Pulse Ox
97.6 F 64 18 139/73 88
06/27/24 07:00 06/27/24 07:00 06/27/24 07:00 06/27/24 07:00 06/27/24 07:00
Intake & Output
06/26/24 06/27/24 06/28/24
06:59 06:59 06:59
Intake Total 2150 / 2150 2000 / 2000
Output Total 2485 / 2485 2395 / 2395
Balance -335 / -335 -395 / -395
Intake:
Oral fluids 60 / 60
IV fluids (Total) 1500 / 1500 1250 / 1250
IV piggybacks 500 / 500 600 / 600
Amount instilled into GI Tube ( 150 / 150 90 / 90
Total)
[place] Sump 150 / 150 90 / 90
Output:
Drain Output (Total) 110 / 110 70 / 70
Right Middle Abdomen Dariel- 110 / 110 70 / 70
[place]
Gastrointestinal tube output ( 1300 / 1300 325 / 325
Total)
[place] Sump 1300 / 1300 325 / 325
Urine, Rivera 1075 / 1075 1999
Lab Results
06/27/24 05:11
06/27/24 05:11
Physical Exam
-
General: No Acute Distress and AOx3
HEENT: Grossly Normal
Abdomen: Soft, Non Distended, Tender (Appropriately tender near midline incision), No Guarding, No Rebound and Other (NASEEM-70 mL serosanguineous)
Skin: Warm and Dry
Wound: No Signs of Infection, Dressing in Place and No Skin Erythema
[2024-06-27] MEDS: FIRVANQ 125 MG TUBE (08:34)
[2024-06-27] MEDS: PROTONIX IV 40 MG IV (08:35)
[2024-06-27] MEDS: NSS (PRESERVATIVE FREE) 10 ML IV (08:35)
[2024-06-27] MEDS: NORMOSOL-R/PLASMALYTE-A 1000 IV (08:37)
[2024-06-27] MEDS: TORADOL 15 MG IV ×3 (09:40→20:21)
--- NOTE | 2024-06-27 10:37 | PN.CDI ---
Addendum entered and electronically signed by Ronny Finch MD 07/01/24 15:17:
Sepsis was not present on admission.
Original Note:
CDI
- -
CDI:
Physician Documentation Request
Admit Date: 06/23/24 22:15
Dear Doctor Stef,
Please review the following and provide your response in the progress notes.
Clinical Indicators:
Pt admitted with Acute severe recurrent complicated diverticulitis with sigmoid perforation/abscess on IV Zosyn
Documented per ID consult ,' On admission her WBC was 18.8 and it is 15.1 today. She was febrile this morning with a temperature of 101.3.'
Progress notes 06/25 & 06/26, ' Acute severe recurrent complicated diverticulitis with sigmoid perforation Sepsis secondary to above...'
On admission WBCs 18.8, Tmax 101.3
Please clarify the following:
Sepsis _was present on admission
_Sepsis __ was not present on admission
Other ( please specify)
Use of terms such as suspected, likely, concern for, or probable (associated with a specific diagnosis that is being evaluated, monitored, or treated as if it exists) are acceptable and can be coded in the inpatient setting, when documented at the
time of discharge.
Thank you,
Luzma Artis RN
CDI Specialist
[employer]
Please use your independent medical judgment in providing your response.
--- NOTE | 2024-06-27 11:31 | WOUNDNOTE ---
[facility] RN note: Patient s/p end colostomy on 06/25/24. Stoma pink and budded. Appliance intact. Instructed patient how to open and close pouch, how to cut and snap on pouch. Colostomy supplies ([place] wafer # [id number], Ambar seals and [place] pouch
#[id number]) and colostomy teaching folder given. Patient gave permission to order a [place] ostomy secure starter kit. Patient opened and closed a pouch and snapped a pouch onto a wafer. Patient stated she plans to stay with her brother when
discharged however, she did not want brother included with ostomy teaching. Appliance change planned this week (Thursday or Thursday).
--- NOTE | 2024-06-27 13:36 | W.PN.ID1 ---
Date of Service
Date of Service: June 27, 2024
Today's Communication
Continue Zosyn and enteric Vanco.
Assessment / Plan
# Perforated sigmoid diverticulitis with free air and abscess
# Fever - resolved
# Leukocytosis
# History of C. difficile
# Uterine fibroid
- 06/24 s/p sigmoidectomy, creation of end-colostomy, repair of serosal injury, DEVORAH, RSO, L salpingectomy, left ureteral stent placement
-Blood cultures neg to date
- Continue Zosyn (d5)
-Trend white count for now.
-Continue prophylactic enteric vancomycin 125 mg daily for history of C. difficile.
Chief Complaint
-: Other (perforated diverticulitis)
Subjective / Review of Systems
Abdominal pain better. No BM yet. +nausea
Vital Signs / Physical Exam
Vital Signs
Vital Signs
Temp Pulse Resp BP Pulse Ox
97.6 F 58 18 144/82 96
06/27/24 11:15 06/27/24 11:15 06/27/24 11:15 06/27/24 11:15 06/27/24 11:15
Physical Exam
Constitutional: Acutely Ill
Cardiovascular: Regular Rate and S1/S2
Pulmonary: Clear
Gastrointestinal: Soft, Non Distended and Decreased Bowel Sounds
Extremities: Negative Edema
Neurological: AO x 3
Objective Data
Lab Data
Lab Results
06/27/24 05:11
06/27/24 05:11
Estimated Creat Clear 61 ml/min 06/27/24 05:11
Lactic Acid Cancelled 06/23/24 23:00
Total Bilirubin 0.4 mg/dl (0.2-1.3) 06/27/24 05:11
AST 25 U/L (14-36) 06/27/24 05:11
ALT 17 U/L (0-35) 06/27/24 05:11
Alkaline Phosphatase 78 U/L (38-126) 06/27/24 05:11
Most recent labs reviewed.
06/24/24 CT a/p wo contrast: New large amount of intraperitoneal free air suspicious for perforated acute diverticulitis, a significant change compared to the CT from yesterday. Given these findings, percutaneous drainage of pelvic abscess not
performed.
06/23/24 CT a/p: Large mixed attenuation pelvic mass midline to the right again seen measuring greater than 10 cm most likely a degenerated uterine fibroid, predominantly stable in comparison to recent prior study. Markedly limited evaluation of
intestinal tract without oral contrast and with paucity of intrapelvic fat with suspected prominent thickening of the wall of the sigmoid colon suspicious for colitis or diverticulitis with A FEW SMALL ACCOMPANYING ABNORMAL FOCAL FLUID COLLECTIONS
SUSPICIOUS FOR ABSCESSES, largest on the left pelvic sidewall measuring 4.7 cm in greatest dimension, slightly increased from recent prior study.
--- NOTE | 2024-06-27 13:37 | W.PN.OBG.DWH ---
Today's Communication / Plan
-
continue care per primary team
Assessment/Plan
-
POD#3 s/p exploratory lap, sigmoidectomy, end to end anastomosis, creation of end-colostomy, repair of serosal injury, rigid proctosigmoidoscopy; DEVORAH, RSO, Left salpingectomy, cystoscopy with left ureteral stent placement by Urology; TAP block for
perforated bowel diverticulum, pelvic mass involving bowel and suspected involvement of left ovary.
Severe diverticular disease.
Enlarged fibroid uterus
1. continue post-op care per colorectal/surgery service.
2. IV Abx per ID
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
Subjective Data
-
patient c/o nausea, preventing her from sleeping. Remains NPO with NG tube. Currently sitting in chair.
Objective Data
-
Laboratory Results
06/27/24 05:11
06/27/24 05:11
Vital Signs
Temp Pulse Resp BP Pulse Ox
97.6 F 58 18 144/82 96
06/27/24 11:15 06/27/24 11:15 06/27/24 11:15 06/27/24 11:15 06/27/24 11:15
Gen: sitting in chair, moaning w/ c/o nausea
Abd: soft, nd, colostomy with dark green liquid
Bandage in place with shadowing
NASEEM drain with scant amount of serosanguineous output
Rivera with pink colored urine
--- NOTE | 2024-06-27 15:02 | W.PN.HOSP.TC ---
Today's Communication/Plan
-
Postoperative care including:
� NG tube
NASEEM drain.
IV antibiotics.
Rivera/stent as per urology.
Assessment / Plan
Assessment / Plan
Impression:
Acute severe recurrent complicated diverticulitis with sigmoid perforation
Sepsis secondary to above
Uterine fibroid on CT scan
Hypocalcemia
Other conditions:
Prior history of C. difficile.
Hypothyroidism on replacement
Plan:
CT AP:
Large mixed attenuation pelvic mass midline to the right again seen measuring greater than 10 cm most likely a degenerated uterine fibroid, predominantly stable in comparison to recent prior study.
Markedly limited evaluation of intestinal tract without oral contrast and with paucity of intrapelvic fat with suspected prominent thickening of the wall of the sigmoid colon suspicious for colitis or diverticulitis with A FEW SMALL ACCOMPANYING
ABNORMAL FOCAL FLUID COLLECTIONS SUSPICIOUS FOR ABSCESSES, largest on the left pelvic sidewall measuring 4.7 cm in greatest dimension, slightly increased from recent prior study.
Patient with episode of perforation sigmoid
Status post emergent ex lap with sigmoidectomy, creation of end colostomy, repair of serosal injury, repair of serosal injury, rigid proctosigmoidoscopy; DEVORAH, RSO, L salpingectomy with likely oophorectomy in colon specimen by [employer]; cystoscopy
with left ureteral stent placement by Urology; TAP block by anesthesia
Continue with the NG tube
Monitor ostomy output
Continue with pain control
Continue with IV fluids
Strict n.p.o. and no medication per surgery.
Status post left ureteral stent placement and Rivera catheter placement.
Monitor urinary output. Rivera management per urology
Monitor NASEEM drain output.
Downtrend in hemoglobin likely dilutional and also with possible blood loss. Repeat h/h pending.
Currently on IV Zosyn.
Continue enteral vancomycin via NG tube
Hypothyroidism
-If with prolonged n.p.o. status may need to consider switching to IV
DVT prophylaxis Lovenox
Full code
Discussed with patient brother by the bedside in details on 06/25/24
Anticipated Discharge: > 48 hours
Subjective/Interval History
-
Date of Service: June 27, 2024
Objective Data
-
Labs:
Laboratory Results
06/27/24
05:11
WBC 17.0 H
Hgb 8.9 L
Hct 26.0 L
Plt Count 390 D
Sodium 135
Potassium 3.8
Chloride 95 L
Carbon Dioxide 32 H
BUN 19 H
Creatinine 0.8
Glucose 99
Calcium 7.8 L
Total Bilirubin 0.4
AST 25
ALT 17
Alkaline Phosphatase 78
Vital Signs:
Vital Signs
Temp Pulse Resp BP Pulse Ox
97.6 F 58 18 144/82 96
06/27/24 11:15 06/27/24 11:15 06/27/24 11:15 06/27/24 11:15 06/27/24 11:15
I&O
06/26/24 06/27/24 06/28/24
06:59 06:59 06:59
Intake Total 2150 / 2150 1999 / 1999
Output Total 2485 / 2485 2395 / 2395 500 / 500
Balance -335 / -335 -395 / -395 -500 / -500
Physical Exam
-
General: Well Developed and No Apparent Distress
HEENT: Normocephalic, Atraumatic and Moist Mucous Membranes
Respiratory: Clear to Auscultation
Cardiac: Regular Rhythm and S1/S2; Negative Murmur, Rub or Gallop
GI: Soft, Nontender, Nondistended, Normal Bowel Sounds, Ostomy and Other (NASEEM drain); Negative Organomegaly
Rectal: Deferred by Provider
Musculoskeletal: No Clubbing, No Cyanosis and No Edema
Skin: Negative Rash
Neuro: Nonfocal/Grossly Intact
--- NOTE | 2024-06-27 15:29 | CM ---
Chart reviewed
NPO; NGT; IVF's
Wound care following - new colostomy
PT- recs - SNF
CM will follow for d/c needs
Plan - anticipate SNF when medically ready
--- NOTE | 2024-06-27 16:18 | PTCARENOTE ---
Patient telemetry showing jozef with afib with frequent PACs and PVCs on monitor despite seeing P-waves. Dr. Finch made aware. EKG ordered and obtained. Sent to Dr. Finch who stated that he also sees P waves. Will continue telemetry.
[2024-06-27] MEDS: NSS 1000 IV (17:10)
--- NOTE | 2024-06-27 17:40 | WOUNDNOTE ---
[facility] RN note: faxed a [place] ostomy secure starter kit request form (signed by patient) to [facility].
[2024-06-27] MEDS: LOVENOX 40 MG SC (18:00)
--- NOTE | 2024-06-27 18:11 | PTCARENOTE ---
While sleeping, patient heart rate was dropping into the 30's but would quickly recover to the 40-50's per tele monitor. When checking on patient, she was asymptomatic, east to awake and heart rate stayed in the 40-50's. Dr. Finch made aware.
[2024-06-27] MEDS: DILAUDID 0.25 MG IV (21:15)
[2024-06-28 03:00] VITALS: BP 147/81
[2024-06-28 03:05] VITALS: BMI 23.9
[2024-06-28] MEDS: ZOSYN 50 IV ×4 (03:14→21:51)
[2024-06-28] MEDS: TORADOL 15 MG IV ×4 (03:14→21:52)
[2024-06-28] MEDS: NSS 1000 IV (05:33)
[2024-06-28] MEDS: OFIRMEV 100 IV ×2 (05:34→17:30)
[2024-06-28] MEDS: COMPAZINE 10 MG IV (05:41)
[2024-06-28 07:05] VITALS: BP 138/69
[2024-06-28 08:04] LABS: % Basophils 0.2 % (0-2); % Eosinophils 1.5 % (0-6); % Immature Granulocytes 0.8 % (0-0.5); % Lymphocytes 12.1 % (20.5-51.1); % Monocytes 3.7 % (1.7-9.3); % Neutrophils 81.7 % (42.2-75.2); Absolute Eosinophils 0.2 10^3/uL (0-0.7); Absolute Immature Granulocytes 0.1 10^3/uL (0-0.05); Absolute Lymphocytes 1.4 10^3/uL (1.2-3.4); Absolute Monocytes 0.4 10^3/uL (0.1-0.6); Absolute Neutrophils 9.6 10^3/uL (1.4-6.5); Hematocrit 25.9 % (37.0-47.0); Hemoglobin 8.8 g/dL (12.0-16.0); Mean Corpuscular Hgb 31.7 pg (27.0-31.0); Mean Corpuscular Volume 93.2 fL (81.0-99.0); Mean Platelet Volume 10.8 fL (7.4-10.4); Nucleated Red Blood Cells % 0 %; Platelet Count 363 10^3/uL (130-400); Red Blood Cell Count 2.78 10^6/uL (4.20-5.40); White Blood Cell Count 11.8 10^3/uL (4.8-10.8)
[2024-06-28] MEDS: NSS (PRESERVATIVE FREE) 10 ML IV (08:18)
[2024-06-28] MEDS: PROTONIX IV 40 MG IV (08:18)
[2024-06-28] MEDS: FIRVANQ 125 MG TUBE (08:18)
[2024-06-28 08:34] LABS: Blood Urea Nitrogen 10 mg/dl (7-17); Calcium 7.6 mg/dl (8.4-10.2); Carbon Dioxide 29 mmol/L (22-30); Chloride 98 mmol/L (98-107); Estimated Creatinine Clearance 61 ml/min; Glucose 92 mg/dl (70-99); Sodium 135 mmol/L (135-145); eGFR > 60.00
--- NOTE | 2024-06-28 09:49 | W.PN.CRS1 ---
Today's Communication / Plan
-
Continue NG tube
Stent and Rivera per urology
Out of bed with physical therapy
Wound RN
Assessment/Plan
-
63-year-old female with hypothyroidism, HTN, history of C. difficile, fibroid uterus and recurrent diverticulitis (recent admission for diverticulitis with abscess s/p IR aspiration) who presented with worsening abdominal pain, initially found to
have worsening diverticulitis with significantly larger abscess, but subsequently developed free air
POD 4 ex lap, sigmoidectomy, drainage of abscess, DEVORAH, RSO, left salpingectomy, cystoscopy with left ureteral stent, TAP block
AFVSS
WBC 11.8 (17.0), Hb 8.8 (9.0)
�Leukocytosis; improved from yesterday; trend daily
�Continue NGT to low continuous suction due to nausea overnight; continue IVF
�Nausea may be related to pain or Dilaudid
�Continue pain control with Ofirmev and Dilaudid as needed; Toradol every 6 hours
�Continue DVT PPx with Lovenox
� NASEEM to bulb suction
� Appreciate ID, continue Zosyn and p.o. vancomycin
� OOB; appreciate PT/OT
-Wound RN for stoma teaching. Okay to replace midline dressing with 4 x 4's and tape.
-Will consider TPN in the next few days if remains n.p.o.
-Appreciate urology. Plan is to continue and Rivera and reevaluate on a day-to-day basis
� Appreciate hospitalist
Subjective Data
Procedure
06/25- exlap, sigmoidectomy, creation of end-colostomy, repair of serosal injury, rigid proctosigmoidoscopy; DEVORAH, RSO, L salpingectomy with likely oophorectomy in colon specimen by [employer]; cystoscopy with left ureteral stent placement by Urology; TAP
block by anesthesia
Subjective Data
Date of Service: June 28, 2024
Patient states she was nauseous. Otherwise she is in some mild pain.
Objective Data
-
Vital Signs
Temp Pulse Resp BP Pulse Ox
98.0 F 58 18 138/69 98
06/28/24 07:05 06/28/24 07:05 06/28/24 07:05 06/28/24 07:05 06/28/24 07:05
Intake & Output
06/27/24 06/28/24 06/29/24
06:59 06:59 06:59
Intake Total 1999 / 1999 290 / 290 90 / 90
Output Total 2405 / 2405 4035 / 4035 250 / 250
Balance -405 / -405 -3745 / -3745 -160 / -160
Intake:
Oral fluids 60 / 60
IV fluids (Total) 1250 / 1250
IV piggybacks 600 / 600 200 / 200
Amount instilled into GI Tube ( 90 / 90 90 / 90 90 / 90
Total)
[place] Sump 90 / 90 90 / 90 90 / 90
Output:
Liquid stool amount 325 / 325
Colostomy 325 / 325
Drain Output (Total) 80 / 80 60 / 60
Right Middle Abdomen Dariel- 80 / 80 60 / 60
[place]
Gastrointestinal tube output ( 325 / 325 200 / 200 250 / 250
Total)
[place] Sump 325 / 325 200 / 200 250 / 250
Urine, Rivera 1999 3450 / 3450
Lab Results
06/28/24 07:32
06/28/24 07:32
Physical Exam
-
General: No Acute Distress and AOx3
Abdomen: Soft, Non Distended, Non Tender and Other (Colostomy warm and pink, no flatus, scant liquid)
Wound: Dressing in Place
--- NOTE | 2024-06-28 09:52 | W.PN.ID1 ---
Date of Service
Date of Service: June 28, 2024
Today's Communication
Continue Zosyn, enteric Vancomycin.
Assessment / Plan
# Perforated sigmoid diverticulitis with free air and abscess
# Fever - resolved
# Leukocytosis improved
# History of C. difficile
# Uterine fibroid
- 06/24 s/p sigmoidectomy, creation of end-colostomy, repair of serosal injury, DEVORAH, RSO, L salpingectomy, left ureteral stent placement
-Blood cultures neg to date
- Continue Zosyn (d6)
-Continue prophylactic enteric vancomycin 125 mg daily for history of C. difficile.
-Trend white count
Chief Complaint
-: Other (perforated diverticulitis)
Subjective / Review of Systems
Abd pain better.
Vital Signs / Physical Exam
Vital Signs
Vital Signs
Temp Pulse Resp BP Pulse Ox
98.0 F 58 18 138/69 98
06/28/24 07:05 06/28/24 07:05 06/28/24 07:05 06/28/24 07:05 06/28/24 07:05
Physical Exam
Constitutional: Acutely Ill
Cardiovascular: Regular Rate and S1/S2
Pulmonary: Clear
Gastrointestinal: Soft, Tender (mild), Non Distended and Decreased Bowel Sounds
Extremities: Negative Edema
Neurological: AO x 3
Objective Data
Lab Data
Lab Results
06/28/24 07:32
06/28/24 07:32
Estimated Creat Clear 61 ml/min 06/28/24 07:32
Lactic Acid Cancelled 06/23/24 23:00
Total Bilirubin 0.4 mg/dl (0.2-1.3) 06/27/24 05:11
AST 25 U/L (14-36) 06/27/24 05:11
ALT 17 U/L (0-35) 06/27/24 05:11
Alkaline Phosphatase 78 U/L (38-126) 06/27/24 05:11
Most recent labs reviewed.
06/24/24 CT a/p wo contrast: New large amount of intraperitoneal free air suspicious for perforated acute diverticulitis, a significant change compared to the CT from yesterday. Given these findings, percutaneous drainage of pelvic abscess not
performed.
06/23/24 CT a/p: Large mixed attenuation pelvic mass midline to the right again seen measuring greater than 10 cm most likely a degenerated uterine fibroid, predominantly stable in comparison to recent prior study. Markedly limited evaluation of
intestinal tract without oral contrast and with paucity of intrapelvic fat with suspected prominent thickening of the wall of the sigmoid colon suspicious for colitis or diverticulitis with A FEW SMALL ACCOMPANYING ABNORMAL FOCAL FLUID COLLECTIONS
SUSPICIOUS FOR ABSCESSES, largest on the left pelvic sidewall measuring 4.7 cm in greatest dimension, slightly increased from recent prior study.
[2024-06-28] MEDS: CHLORASEPTIC/SORE THROAT SPRAY 1 SPRAY PO (10:43)
[2024-06-28 11:15] VITALS: BP 131/68
--- NOTE | 2024-06-28 12:03 | W.PN.UPDATE ---
Update Note
Progress Note Update
urine clear
left ureteral stent removed
remove reyes per colo-rectal
call with any questions
[2024-06-28] MEDS: NSS IV (13:09)
[2024-06-28] MEDS: D5/0.9% with KCL 40 MEQ 1000 IV (13:09)
--- NOTE | 2024-06-28 13:52 | CM ---
Cm reviewed medical records. Patient remains acutely ill at this time. CM will remain available as needed.
PLAN: Home with VN vs. SNF pending PT evaluation.
[2024-06-28 14:10] LABS: TSH 6.63 uIU/ml (0.47-4.68)
[2024-06-28 15:25] VITALS: BP 155/87
--- NOTE | 2024-06-28 15:26 | PTCARENOTE ---
Heart monitor alarming patient in tachycardia with frequent PVC's.Heart rate up to the 150's.At first it would break and go back down to the 70's but soon it was in rapid atrial fibrillation and sustaining that rhythm.Dr. Finch was notified and
ECG was done confirming the rapid A-fib.Will continue to monitor the patient.
--- NOTE | 2024-06-28 15:36 | W.PN.HOSP.TC ---
Today's Communication/Plan
-
NG tube
N.p.o.
IV fluids
Replete electrolytes.
IV antibiotics
Pain control
Noted in new A-fib with RVR. Initiate IV Cardizem
Echo in a.m.
Assessment / Plan
Assessment / Plan
Impression:
Acute severe recurrent complicated diverticulitis with sigmoid perforation
Sepsis secondary to above
Uterine fibroid on CT scan
Hypocalcemia
A-fib with RVR
Other conditions:
Prior history of C. difficile.
Hypothyroidism on replacement
Plan:
CT AP:
Large mixed attenuation pelvic mass midline to the right again seen measuring greater than 10 cm most likely a degenerated uterine fibroid, predominantly stable in comparison to recent prior study.
Markedly limited evaluation of intestinal tract without oral contrast and with paucity of intrapelvic fat with suspected prominent thickening of the wall of the sigmoid colon suspicious for colitis or diverticulitis with A FEW SMALL ACCOMPANYING
ABNORMAL FOCAL FLUID COLLECTIONS SUSPICIOUS FOR ABSCESSES, largest on the left pelvic sidewall measuring 4.7 cm in greatest dimension, slightly increased from recent prior study.
Patient with episode of perforation sigmoid
Status post emergent ex lap with sigmoidectomy, creation of end colostomy, repair of serosal injury, repair of serosal injury, rigid proctosigmoidoscopy; DEVORAH, RSO, L salpingectomy with likely oophorectomy in colon specimen by [employer]; cystoscopy
with left ureteral stent placement by Urology; TAP block by anesthesia
Continue with the NG tube
Monitor ostomy output
Continue with pain control
Continue with IV fluids
Strict n.p.o. and no medication per surgery.
Status post left ureteral stent placement and Rivera catheter placement. Ureteral stent removed on 06/28
Monitor urinary output. Rivera management per urology
Monitor NASEEM drain output.
Downtrend in hemoglobin likely dilutional and also with possible blood loss. Repeat h/h pending.
Currently on IV Zosyn.
Continue enteral vancomycin via NG tube
A-fib with RVR.
Likely triggered by pain.
Initiate rate control with Cardizem 10 mg IV with 5 mg an hour infusion. Adjust.
[id number] 2. Postoperative A-fib with relatively low risk. No clear indication for anticoagulation.
Echo in a.m. hopefully with better rate control.
Hypothyroidism
-If with prolonged n.p.o. status may need to consider switching to IV
DVT prophylaxis Lovenox
Full code
Discussed with patient brother by the bedside in details on 06/25/24
Anticipated Discharge: > 48 hours
Subjective/Interval History
-
Date of Service: June 28, 2024
Objective Data
-
Labs:
Laboratory Results
06/28/24
07:32
WBC 11.8 H
Hgb 8.8 L
Hct 25.9 L
Plt Count 363
Sodium 135
Potassium 3.0 L
Chloride 98
Carbon Dioxide 29
BUN 10
Creatinine 0.8
Glucose 92
Calcium 7.6 L
Vital Signs:
Vital Signs
Temp Pulse Resp BP Pulse Ox
98.2 F 64 18 131/68 97
06/28/24 11:15 06/28/24 11:15 06/28/24 11:15 06/28/24 11:15 06/28/24 11:15
I&O
06/27/24 06/28/24 06/29/24
06:59 06:59 06:59
Intake Total 1999 / 1999 290 / 290 90 / 90
Output Total 2405 / 2405 4035 / 4035 1979 / 1979
Balance -405 / -405 -3745 / -3745 -1890 / -1890
Physical Exam
-
General: Well Developed and No Apparent Distress
HEENT: Normocephalic, Atraumatic and Moist Mucous Membranes
Respiratory: Clear to Auscultation
Cardiac: Regular Rhythm and S1/S2; Negative Murmur, Rub or Gallop
GI: Soft, Nontender, Nondistended, Normal Bowel Sounds, Ostomy and Other (NASEEM drain); Negative Organomegaly
Rectal: Deferred by Provider
Musculoskeletal: No Clubbing, No Cyanosis and No Edema
Skin: Negative Rash
Neuro: Nonfocal/Grossly Intact
--- NOTE | 2024-06-28 15:44 | WOUNDNOTE ---
JEREMY RN NOTE: Unable to change patient's appliance today, nurse Lujan reports no leakage, patient is in rapid Afib. Will follow tomorrow.
[2024-06-28] MEDS: CARDIZEM 125 IV (15:47)
[2024-06-28] MEDS: CARDIZEM 10 MG IV (15:48)
--- NOTE | 2024-06-28 15:50 | W.PN.OBG.DWH ---
Today's Communication / Plan
-
await path
optimize analgesia
Assessment/Plan
-
POD#4 s/p exploratory lap, sigmoidectomy, end to end anastomosis, creation of end-colostomy, repair of serosal injury, rigid proctosigmoidoscopy; DEVORAH, RSO, Left salpingectomy, cystoscopy with left ureteral stent placement by Urology; TAP block for
perforated bowel diverticulum, pelvic mass involving bowel and suspected involvement of left ovary.
Severe diverticular disease.
Enlarged fibroid uterus
1. continue post-op care per colorectal/surgery service.
2. IV Abx per ID
3. SENIOR SOURCING MANAGER - path pending
Subjective Data
-
denies nausea, no flatus
Objective Data
-
Laboratory Results
06/28/24 07:32
06/28/24 07:32
Vital Signs
Temp Pulse Resp BP Pulse Ox
98.2 F 64 18 131/68 97
06/28/24 11:15 06/28/24 11:15 06/28/24 11:15 06/28/24 11:15 06/28/24 11:15
[2024-06-28 16:17] LABS: Free T4 1.17 ng/dl (0.78-2.19)
[2024-06-28] MEDS: LOVENOX 40 MG SC (17:31)
[2024-06-28 19:00] VITALS: BP 137/89
[2024-06-28 23:00] VITALS: BP 132/88
[2024-06-29] VITALS (7 sets, daily range): BP systolic 136–171; BP diastolic 75–88; PULSE 53; O2SAT 98; BMI 21.9
[2024-06-29] MEDS: D5/0.9% with KCL 40 MEQ 1000 IV ×2 (00:38→12:57)
[2024-06-29] MEDS: BENADRYL 12.5 MG IV (01:09)
[2024-06-29] MEDS: TORADOL 15 MG IV ×4 (03:37→21:03)
[2024-06-29] MEDS: ZOSYN 50 IV ×4 (03:37→21:03)
--- NOTE | 2024-06-29 06:34 | W.PN.UPDATE ---
Update Note
Progress Note Update
Patient converted to sinus rhythm, HR 50, Cardizem gtt on hold at this time.
--- NOTE | 2024-06-29 07:30 | PTCARENOTE ---
0615 - Notified CAN VACUUM TESTER Abi that pt's HR was 40-s to 60s and converted back to NSR. EKG confirmed pt was sinus jozef. CAN VACUUM TESTER ordered to hold Cardizem gtt at this time. Assessment ongoing.
[2024-06-29 07:54] LABS: % Basophils 0.4 % (0-2); % Eosinophils 2.7 % (0-6); % Immature Granulocytes 0.9 % (0-0.5); % Lymphocytes 13.9 % (20.5-51.1); % Monocytes 5.8 % (1.7-9.3); % Neutrophils 76.3 % (42.2-75.2); Absolute Eosinophils 0.3 10^3/uL (0-0.7); Absolute Immature Granulocytes 0.1 10^3/uL (0-0.05); Absolute Lymphocytes 1.4 10^3/uL (1.2-3.4); Absolute Monocytes 0.6 10^3/uL (0.1-0.6); Absolute Neutrophils 7.6 10^3/uL (1.4-6.5); Hematocrit 26.9 % (37.0-47.0); Hemoglobin 9.5 g/dL (12.0-16.0); Mean Corp Hgb Conc. 35.3 g/dL (33.0-37.0); Mean Corpuscular Hgb 32.6 pg (27.0-31.0); Mean Corpuscular Volume 92.4 fL (81.0-99.0); Mean Platelet Volume 10.6 fL (7.4-10.4); Nucleated Red Blood Cells % 0 %; Platelet Count 437 10^3/uL (130-400); Red Blood Cell Count 2.91 10^6/uL (4.20-5.40); Red Cell Dist. Width 12.8 % (11.5-14.5); White Blood Cell Count 9.9 10^3/uL (4.8-10.8)
[2024-06-29 08:13] LABS: Blood Urea Nitrogen 5 mg/dl (7-17); Calcium 7.9 mg/dl (8.4-10.2); Carbon Dioxide 31 mmol/L (22-30); Chloride 99 mmol/L (98-107); Estimated Creatinine Clearance 81 ml/min; Glucose 152 mg/dl (70-99); Potassium 3.4 mmol/L (3.5-5.1); Sodium 137 mmol/L (135-145); eGFR > 60.00
--- NOTE | 2024-06-29 08:58 | WOUNDNOTE ---
[facility] RN note: Patient's stoma pink and budded. Small brown stool in pouch. Peristomal skin intact. Midline dressing changed per Jimena Suarez's request including removing tanner. [place] intact. No erythema. Dry gauze pads applied. Instructed patient
pouch emptying and changing using [place] wafer # [id number], [place]ar seal and [place] pouch # [id number]. Patient closed pouch and snapped on pouch. More ostomy supplies ordered from [facility]. Teaching folder in room. Faxed patient signed [facility] ostomy
starter kit request to [facility] late on 06/27/24. Next appliance change due by Thursday.
[2024-06-29] MEDS: NSS (PRESERVATIVE FREE) 10 ML IV (08:59)
[2024-06-29] MEDS: FIRVANQ 125 MG TUBE (09:00)
[2024-06-29] MEDS: PROTONIX IV 40 MG IV (09:00)
--- NOTE | 2024-06-29 09:39 | W.PN.CRS1 ---
Today's Communication / Plan
-
NG tube clamping trial
Dressing change
Right lower extremity evaluation
DC Rivera
Assessment/Plan
-
63-year-old female with hypothyroidism, HTN, history of C. difficile, fibroid uterus and recurrent diverticulitis (recent admission for diverticulitis with abscess s/p IR aspiration) who presented with worsening abdominal pain, initially found to
have worsening diverticulitis with significantly larger abscess, but subsequently developed free air
POD 4 ex lap, sigmoidectomy, drainage of abscess, DEVORAH, RSO, left salpingectomy, cystoscopy with left ureteral stent, TAP block
AFVSS
WBC 9.9 (11.8), Hb 9.5 (8.8)
�Leukocytosis; improving, trend
� NG tube clamping trial today. If removed, remain NPO.
�Continue pain control with Ofirmev and Dilaudid as needed; Toradol every 6 hours
�Continue DVT PPx with Lovenox
� NASEEM to bulb suction
� Appreciate ID, continue Zosyn and p.o. vancomycin
� OOB; appreciate PT/OT
-Wound RN for stoma teaching. Okay to replace midline dressing with 4 x 4's and tape. Also okay to remove tanner.
-Will consider TPN in the next few days if remains n.p.o.
-Appreciate urology. Will discontinue Rivera today.
� Appreciate hospitalist. I have reached out to him regarding her right lower extremity weakness.
-Echocardiogram today.
Subjective Data
Procedure
06/25- exlap, sigmoidectomy, creation of end-colostomy, repair of serosal injury, rigid proctosigmoidoscopy; DEVORAH, RSO, L salpingectomy with likely oophorectomy in colon specimen by Ob-Almond Cutting Machine Tender; cystoscopy with left ureteral stent placement by Urology; TAP
block by anesthesia
Subjective Data
Date of Service: June 29, 2024
Patient states she is not nauseous today. Her belly feels flat. She has some liquid stool output in her stoma. She also mentions that her right lower extremity feels weak. She went into atrial fibrillation last night but she converted back to
sinus rhythm after Cardizem.
Objective Data
-
Vital Signs
Temp Pulse Resp BP Pulse Ox
97.6 F 51 16 157/79 98
06/29/24 07:00 06/29/24 07:00 06/29/24 07:00 06/29/24 07:00 06/29/24 07:00
Intake & Output
06/28/24 06/29/24 06/30/24
06:59 06:59 06:59
Intake Total 290 / 290 2870 / 2870
Output Total 4035 / 4035 6700 / 6700
Balance -3745 / -3745 -3830 / -3830
Intake:
IV fluids (Total) 2350 / 2350
IV piggybacks 200 / 200 250 / 250
Amount instilled into GI Tube ( 90 / 90 270 / 270
Total)
[place] 90 / 90 270 / 270
Output:
Liquid stool amount 325 / 325 125 / 125
Colostomy 325 / 325 125 / 125
Drain Output (Total) 60 / 60 90 / 90
Right Middle Abdomen Dariel- 60 / 60 90 / 90
[place]
Gastrointestinal tube output ( 200 / 200 1160 / 1160
Total)
[place] 200 / 200 1160 / 1160
Urine, Rivera 3450 / 3450 5325 / 5325
Lab Results
06/29/24 06:15
06/29/24 06:15
Physical Exam
-
General: No Acute Distress and AOx3
Abdomen: Soft, Non Distended, Non Tender and Other (Colostomy warm and pink with some liquid stool in bag)
Extremities: Other (Right lower quadrant weakness 2/5)
Skin: Warm and Dry
--- NOTE | 2024-06-29 09:45 | WOUNDNOTE ---
WOC RN note: Ostomy supplies given to patient.
--- NOTE | 2024-06-29 10:00 | PN.CDI ---
CDI
- -
CDI:
Physician Documentation Request
Admit Date: 06/23/24 22:15
Dear Doctor Stef,
Please review the following and provide your response in the progress notes.
Clinical Indicators:
Pt admitted with Acute severe recurrent complicated diverticulitis with sigmoid perforation/abscess on IV Zosyn
Currently with NG tube /potassium levels trended below /Pt did get KCL 40MEQ /D5 IV on 06/28
06/28/24 06/29/24
07:32 06:15
Potassium 3.0 L 3.4 L
Based on the above, could you clarify in the progress notes, the appropriate diagnosis, if significant, that supports the above abnormalities and additional evaluation, monitoring and/or treatment rendered:
Hypokalemia
Abnormal lab value only
Other ( please specify)
Use of terms such as suspected, likely, concern for, or probable (associated with a specific diagnosis that is being evaluated, monitored, or treated as if it exists) are acceptable and can be coded in the inpatient setting, when documented at the
time of discharge.
Thank you,
Luzma Artis RN
CDI Specialist
[place] [facility]
Please use your independent medical judgment in providing your response.
[2024-06-29 11:22] LABS: Magnesium 1.6 mg/dl (1.6-2.3)
--- NOTE | 2024-06-29 11:27 | CON.CAR ---
Addendum entered and electronically signed by Nate Spencer MD 06/29/24 14:36:
I saw and examined the patient.
The CARAMEL COLORING OPERATOR's note was reviewed and I agree with the note.
Comment: 63yo with abdominal underwent extensive abdominal surgery when found to have perforated diverticulitis and also enlarged uterus/pelvic adhesions s/p exlap, sigmoidectomy, creation of end-colostomy, repair of serosal injury, rigid
proctosigmoidoscopy; DEVORAH, RSO, L salpingectomy with likely oophorectomy in colon specimen by Ob-Traffic Controller Cable; cystoscopy with left ureteral stent placement by Urology; TAP block by anesthesia 06/24/24.Meanwhile, she was found to have paf. She had no symptoms.
She isn't sure that she has ever had an issue with HTN, but bp is up albeit in the presence of pain. Her mother did have afib in her early 60s. She doesn't drink. She doesn't using NSAIDs frequently. On exam she has rrr, no mrg. lungs CTA. overall
for her new PAF, i would recommend eventual DOAC when ok post operatively. HR down after dilt gtt now in NSR, may be able to tolerate low dose bb in the future. We will montior. Echo is normal today. BP is elevated but may be due to post op pain,
will monitor.
Original Note:
Consultation
Consultation Request
Date/Time Consultation Requested: 06/29/24 1018
Date/Time Consultation Performed: 06/29/24 1129
Requesting Provider: Dr. Finch
Performing Provider: Erica GAVIN for Dr. Spencer
Reason for Consultation: AFIB
Medical History
-
Chief Complaint: diverticulitis/abd pain
History of Present Illness:
63 y/o female with recurrent diverticulitis, hypothyroidism, uterine fibroid, hydroureteronephrosis, hx Cdiff colitis who came in with abdominal pain 06/23/24. She was seen to have perforated diverticulitis and also enlarged uterus/pelvic adhesions
s/p exlap, sigmoidectomy, creation of end-colostomy, repair of serosal injury, rigid proctosigmoidoscopy; DEVORAH, RSO, L salpingectomy with likely oophorectomy in colon specimen by Ob-Traffic Controller Cable; cystoscopy with left ureteral stent placement by Urology; TAP
block by anesthesia 06/24/24. We are consulted for asymptomatic AFIB with RVR noted yesterday. She is currently in SR. She was on diltiazem drip, but that is now discontinued. She is in no distress at the time of my assessment.
Past Medical History
Past Medical History: HTN (possible per chart), Hypothyroidism and Other (as above)
Social History
Tobacco: Smoker (a few cigarettes per day prior to coming in)
Alcohol: Occasional
Family History
Family History: CAD (mom 60's) and Other (AFIB- mom 60's)
Allergies / Home Medications
Allergy/AdvReac Type Severity Reaction Status Date / Time
No Known Allergies Allergy Verified 06/23/24 17:16
�Medication �Instructions �Recorded �Confirmed �Type
Metamucil Gummy 1 gummy PO DAILYPRN PRN 06/17/24 06/23/24 History
constipation
levothyroxine 75 mcg tablet 75 mcg PO DAILY hypothyroidism 06/17/24 06/23/24 History
(Synthroid)
amoxicillin 875 mg-potassium 1 tab PO Q12H #20 tabs 06/20/24 06/23/24 Rx
clavulanate 125 mg tablet
ondansetron HCl 4 mg tablet 4 mg PO Q6HPRN PRN nausea 06/23/24 06/23/24 History
Review of Systems
-
History Source: Patient and Other (and chart)
Abdomen/GI: Abdominal Pain
Physical Exam
Vital Signs
Temp Pulse Resp BP Pulse Ox
97.6 F 51 16 157/79 98
06/29/24 07:00 06/29/24 07:00 06/29/24 07:00 06/29/24 07:00 06/29/24 07:00
Lab Results
06/29/24 06:15
06/29/24 06:15
Physical Exam
General: Well Developed and No Apparent Distress
HEENT: Normocephalic and Anicteric
Respiratory: Clear and Non Labored Respirations
Cardiac: Regular Rhythm
GI: Other (NGT in place)
Skin: Warm and Dry
Neuro: AO x 3
Psych: Calm
Impression / Plan
-
Perforated diverticulitis (condition that is threat to life) and also enlarged uterus/pelvic adhesions s/p ex-lap, sigmoidectomy, creation of end-colostomy, repair of serosal injury, rigid proctosigmoidoscopy; DEVORAH, RSO, L salpingectomy with likely
oophorectomy in colon specimen by Ob-Traffic Controller Cable; cystoscopy with left ureteral stent placement by Urology; TAP block by anesthesia 06/24/24.
-post-op management per surgery
-NGT remains in place
-on abx
AFIB, paroxysmal:
-denies any symptoms
-in setting of acute illness and hypokalemia (being replaced by primary team)
-now stable in sinus, off diltiazem drip. Follow telemetry.
-[id number] score at least 2 female and age, possibly HTN (reports she was told she had high BP during a procedure in the past, but hasn't been dx with HTN and is not on meds for it). BP's elevated here at times, but pain and surgery contributing.
Follow BP's. She denies any history of bleeding issues or falls and is agreeable for OAC when appropriate post-op. Would recommend Eliquis 5 mg PO BID when acceptable post-op (from bleeding and GI perspective). Will have CM doherty.
-echo pending
-TSH elevated, but free T4 normal- management per primary
Hypothyroidism:
-as above
Data Reviewed
-
EKG: Tracing Personally Visualized and interpreted (SB at 46 BPM)
Medical Tests (Nuc Med, Echo etc): Other (echo ordered)
Labs: Labs Reviewed by me
--- NOTE | 2024-06-29 12:45 | PTCARENOTE ---
Per order, NGT was clamped by Jimena KUMARI @08:15; held 4 hours, residual 50mls (since <250, and patient denies nausea, NGT removed).
--- NOTE | 2024-06-29 13:21 | W.PN.HOSP.TC ---
Today's Communication/Plan
-
Postoperative care
Antibiotics.
Cardiac monitoring.
Assessment / Plan
Assessment / Plan
Impression:
Acute severe recurrent complicated diverticulitis with sigmoid perforation
Sepsis secondary to above
Uterine fibroid on CT scan
Hypocalcemia
A-fib with RVR
Other conditions:
Prior history of C. difficile.
Hypothyroidism on replacement
Plan:
CT AP:
Large mixed attenuation pelvic mass midline to the right again seen measuring greater than 10 cm most likely a degenerated uterine fibroid, predominantly stable in comparison to recent prior study.
Markedly limited evaluation of intestinal tract without oral contrast and with paucity of intrapelvic fat with suspected prominent thickening of the wall of the sigmoid colon suspicious for colitis or diverticulitis with A FEW SMALL ACCOMPANYING
ABNORMAL FOCAL FLUID COLLECTIONS SUSPICIOUS FOR ABSCESSES, largest on the left pelvic sidewall measuring 4.7 cm in greatest dimension, slightly increased from recent prior study.
Patient with episode of perforation sigmoid
Status post emergent ex lap with sigmoidectomy, creation of end colostomy, repair of serosal injury, repair of serosal injury, rigid proctosigmoidoscopy; DEVORAH, RSO, L salpingectomy with likely oophorectomy in colon specimen by Ob-Biometry Teacher; cystoscopy
with left ureteral stent placement by Urology; TAP block by anesthesia
NG tube removed on 06/29
Monitor ostomy output
Continue with pain control
Continue with IV fluids
Strict n.p.o. and no medication per surgery.
Status post left ureteral stent placement and Rivera catheter placement. Ureteral stent removed on 06/28
Rivera removed on 06/29
Monitor urinary output.
Monitor NASEEM drain output.
Downtrend in hemoglobin likely dilutional and also with possible blood loss. Repeat h/h pending.
Currently on IV Zosyn.
Continue enteral vancomycin via NG tube
Paroxysmal A-fib with RVR.
Likely triggered by pain.
Initiated on Cardizem drip on 06/28 back to sinus
Echocardiogram with preserved biventricular function with no other disease
Continue cardiac monitoring
Neurology evaluation
[id number]-Myof 2. Postoperative A-fib with relatively low risk. No clear indication for anticoagulation.
Right lower extremity weakness postoperatively
Exam with decreased hip flexion, knee extension and decreased sensory in the medial aspect of the leg. No other focal findings. 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 Patient reports improvement over the last 24 hours.
Given P A-fib and for completeness, will check CT scan of the head to rule out central cause.
Continue physical therapy
Hypothyroidism
Noted mild elevation of TSH with normal free T4
Resume levothyroxine when back to oral intake.
DVT prophylaxis Lovenox
Full code
Discussed with patient brother by the bedside in details on 06/25/24
Anticipated Discharge: > 48 hours
Subjective/Interval History
-
Date of Service: June 29, 2024
Objective Data
-
Labs:
Laboratory Results
06/29/24
06:15
WBC 9.9
Hgb 9.5 L
Hct 26.9 L
Plt Count 437 H D
Sodium 137
Potassium 3.4 L
Chloride 99
Carbon Dioxide 31 H
BUN 5 L
Creatinine 0.6
Glucose 152 H
Calcium 7.9 L
Vital Signs:
Vital Signs
Temp Pulse Resp BP Pulse Ox
97.8 F 49 18 152/75 98
06/29/24 11:30 06/29/24 11:30 06/29/24 11:30 06/29/24 11:30 06/29/24 11:30
I&O
06/28/24 06/29/24 06/30/24
06:59 06:59 06:59
Intake Total 290 / 290 2870 / 2870 50 / 50
Output Total 4035 / 4035 6700 / 6700 660 / 660
Balance -3745 / -3745 -3830 / -3830 -610 / -610
Physical Exam
-
General: Well Developed and No Apparent Distress
HEENT: Normocephalic, Atraumatic and Moist Mucous Membranes
Respiratory: Clear to Auscultation
Cardiac: Regular Rhythm and S1/S2; Negative Murmur, Rub or Gallop
GI: Soft, Nontender, Nondistended, Normal Bowel Sounds, Ostomy and Other (NASEEM drain); Negative Organomegaly
Rectal: Deferred by Provider
Musculoskeletal: No Clubbing, No Cyanosis and No Edema
Skin: Negative Rash
Neuro: Awake, Alert, Oriented, AO x 3 and Other (Right lower extremity with decreased hip flexion, knee extension and decreased sensory at the medial aspect of the leg)
--- NOTE | 2024-06-29 14:44 | W.PN.ID1 ---
Date of Service
Date of Service: June 29, 2024
Today's Communication
Continue current abx's
Assessment / Plan
# Perforated sigmoid diverticulitis with free air and abscess
# Fever - resolved
# Leukocytosis resolved
# New afib
# History of C. difficile
# Uterine fibroid
- 06/24 s/p sigmoidectomy, creation of end-colostomy, repair of serosal injury, DEVORAH, RSO, L salpingectomy, left ureteral stent placement; stent removed 06/28
-Blood cultures neg to date
- Continue Zosyn (d7)
-Continue prophylactic enteric vancomycin 125 mg daily for history of C. difficile.
-Trend white count
Chief Complaint
-: Other (perforated diverticulitis)
Subjective / Review of Systems
Feels improved.
Vital Signs / Physical Exam
Vital Signs
Vital Signs
Temp Pulse Resp BP Pulse Ox
97.8 F 49 18 152/75 98
06/29/24 11:30 06/29/24 11:30 06/29/24 11:30 06/29/24 11:30 06/29/24 11:30
Physical Exam
Constitutional: Acutely Ill
Cardiovascular: Irregular Rate and S1/S2
Pulmonary: Clear
Gastrointestinal: Soft, Non Tender, Non Distended and Decreased Bowel Sounds
Genito-Urinary: Rivera and Clear Urine
Extremities: Negative Edema
Neurological: AO x 3
Objective Data
Lab Data
Lab Results
06/29/24 06:15
06/29/24 06:15
Estimated Creat Clear 81 ml/min 06/29/24 06:15
Lactic Acid Cancelled 06/23/24 23:00
Total Bilirubin 0.4 mg/dl (0.2-1.3) 06/27/24 05:11
AST 25 U/L (14-36) 06/27/24 05:11
ALT 17 U/L (0-35) 06/27/24 05:11
Alkaline Phosphatase 78 U/L (38-126) 06/27/24 05:11
Most recent labs reviewed.
06/24/24 CT a/p wo contrast: New large amount of intraperitoneal free air suspicious for perforated acute diverticulitis, a significant change compared to the CT from yesterday. Given these findings, percutaneous drainage of pelvic abscess not
performed.
06/23/24 CT a/p: Large mixed attenuation pelvic mass midline to the right again seen measuring greater than 10 cm most likely a degenerated uterine fibroid, predominantly stable in comparison to recent prior study. Markedly limited evaluation of
intestinal tract without oral contrast and with paucity of intrapelvic fat with suspected prominent thickening of the wall of the sigmoid colon suspicious for colitis or diverticulitis with A FEW SMALL ACCOMPANYING ABNORMAL FOCAL FLUID COLLECTIONS
SUSPICIOUS FOR ABSCESSES, largest on the left pelvic sidewall measuring 4.7 cm in greatest dimension, slightly increased from recent prior study.
--- NOTE | 2024-06-29 16:29 | CM ---
Chart reviewed
NG tube clamping trial
Right lower extremity evaluation
DC Rivera
PT following - recs snf
Plan - SNF when medically ready
[2024-06-29] MEDS: LOVENOX 40 MG SC (16:31)
--- NOTE | 2024-06-29 22:47 | W.PN.OBG.DWH ---
Today's Communication / Plan
-
analgesia, OOB
Assessment/Plan
-
POD # 4 s/p exploratory lap, sigmoidectomy, end to end anastomosis, creation of end-colostomy, repair of serosal injury, rigid proctosigmoidoscopy; DEVORAH, RSO, Left salpingectomy, cystoscopy with left ureteral stent placement by Urology; TAP block
for perforated bowel diverticulum, pelvic mass involving bowel and suspected involvement of left ovary.
Severe diverticular disease. Pathology is pending.
Enlarged fibroid uterus
Continue postop mgmt per primary service/colorectal service
Analgesia, OOB
Abx per ID
Awaiting return bowel fxn
Will follow.
Subjective Data
-
Pt seen earlier this evening approx 9:15 pm. Was delayed coming to see her due to extremely busy labor unit today.
Was unavailable earlier.
Feeling much improved. NG out and Rivera d/c'd.
Objective Data
-
Laboratory Results
06/29/24 06:15
06/29/24 06:15
Vital Signs
Temp Pulse Resp BP Pulse Ox
97.9 F 51 16 160/82 98
06/29/24 19:05 06/29/24 19:05 06/29/24 19:05 06/29/24 19:05 06/29/24 19:05
VSS afeb
cor: regular
pulm: clear
Abd: soft NDNT hypoactive BS dressing in place
ext: no calf pain
[2024-06-30] MEDS: D5/0.9% with KCL 40 MEQ 1000 IV ×2 (01:35→12:14)
[2024-06-30 03:07] VITALS: BP 163/85
[2024-06-30] MEDS: TORADOL 15 MG IV ×2 (03:27→09:08)
[2024-06-30] MEDS: ZOSYN 50 IV ×2 (03:28→09:20)
[2024-06-30 05:21] VITALS: BMI 21.6
[2024-06-30 07:10] VITALS: BP 163/75
[2024-06-30 07:24] LABS: % Basophils 0.6 % (0-2); % Eosinophils 5.6 % (0-6); % Immature Granulocytes 1.2 % (0-0.5); % Lymphocytes 14.5 % (20.5-51.1); % Neutrophils 71.1 % (42.2-75.2); Absolute Basophils 0.1 10^3/uL (0-0.2); Absolute Eosinophils 0.6 10^3/uL (0-0.7); Absolute Immature Granulocytes 0.1 10^3/uL (0-0.05); Absolute Lymphocytes 1.4 10^3/uL (1.2-3.4); Absolute Monocytes 0.7 10^3/uL (0.1-0.6); Hematocrit 27.5 % (37.0-47.0); Hemoglobin 9.8 g/dL (12.0-16.0); Mean Corp Hgb Conc. 35.6 g/dL (33.0-37.0); Mean Corpuscular Hgb 32.9 pg (27.0-31.0); Mean Corpuscular Volume 92.3 fL (81.0-99.0); Mean Platelet Volume 10.5 fL (7.4-10.4); Nucleated Red Blood Cells % 0 %; Platelet Count 410 10^3/uL (130-400); Red Blood Cell Count 2.98 10^6/uL (4.20-5.40); Red Cell Dist. Width 12.9 % (11.5-14.5); White Blood Cell Count 9.8 10^3/uL (4.8-10.8)
[2024-06-30 07:44] LABS: Blood Urea Nitrogen 5 mg/dl (7-17); Calcium 8.4 mg/dl (8.4-10.2); Carbon Dioxide 28 mmol/L (22-30); Chloride 104 mmol/L (98-107); Estimated Creatinine Clearance 81 ml/min; Glucose 141 mg/dl (70-99); Potassium 4.1 mmol/L (3.5-5.1); Sodium 137 mmol/L (135-145); eGFR > 60.00
[2024-06-30] MEDS: FIRVANQ 125 MG TUBE (09:07)
[2024-06-30] MEDS: PROTONIX IV 40 MG IV (09:07)
[2024-06-30] MEDS: NSS (PRESERVATIVE FREE) 10 ML IV (09:08)
--- NOTE | 2024-06-30 09:19 | CM ---
Addendum entered by Denisse Veloz 06/30/24 10:13:
Met with pt and her brother at bedside
Updated Eliquis med pricing
Discussed SNF at d/c. Given PAC list to review - will check back with pt for choices to place referrals
Will need auth
Plan - anticipate SNF at d/c
Original Note:
CM consult for medication pricing - Eliquis 5mg PO BID
Spoke with pharm staff at [facility]
30 day supply - $272
90 day supply - $366
Will updated pt
--- NOTE | 2024-06-30 09:27 | W.PN.CRS1 ---
Today's Communication / Plan
-
as below
Assessment/Plan
-
63-year-old female with hypothyroidism, HTN, history of C. difficile, fibroid uterus and recurrent diverticulitis (recent admission for diverticulitis with abscess s/p IR aspiration) who presented with worsening abdominal pain, initially found to
have worsening diverticulitis with significantly larger abscess, but subsequently developed free air
POD 6 ex lap, sigmoidectomy, drainage of abscess, DEVORAH, RSO, left salpingectomy, cystoscopy with left ureteral stent, TAP block
AFVSS, ABD soft, nondistended, appropriately tender; midline incision well-approximated, covered in Aquacel, stable strikethrough; ostomy pink and productive of liquid stool, NASEEM 90 mL serosanguineous
WBC 9.9 from 17.0, Hb 9.5 from 8.9, CR 0.6
�Advance to clears
�Continue Tylenol, Toradol, Dilaudid as needed
� NASEEM to bulb suction
� Appreciate ID, continue Zosyn and p.o. vancomycin
� OOB; appreciate PT
-RLE weakness seems to be improving; likely due to positioning on OR table (ie- was in lithotomy); if not improving, would consult neuro
- Appreciate cardiology; ok to start Eliquis
� Appreciate hospitalist
Subjective Data
Procedure
06/25- exlap, sigmoidectomy, creation of end-colostomy, repair of serosal injury, rigid proctosigmoidoscopy; DEVORAH, RSO, L salpingectomy with likely oophorectomy in colon specimen by Ob-Regulatory Affairs Analyst; cystoscopy with left ureteral stent placement by Urology; TAP
block by anesthesia
Subjective Data
Date of Service: June 30, 2024
No overnight events. RLE weakness seems to be improving and was able to work with PT yesterday
Pain controlled.
Denies nausea/vomiting.
+Ostomy function +voiding
Pt is OOB.
Objective Data
-
Vital Signs
Temp Pulse Resp BP Pulse Ox
97.7 F 50 18 163/75 99
06/30/24 07:10 06/30/24 07:10 06/30/24 07:10 06/30/24 07:10 06/30/24 07:10
Intake & Output
06/29/24 06/30/24 07/01/24
06:59 06:59 06:59
Intake Total 2870 / 2870 50 / 50
Output Total 6700 / 6700 191 / 1909
Balance -3830 / -3830 -1860 / -1860
Intake:
IV fluids (Total) 2350 / 2350
IV piggybacks 250 / 250 50 / 50
Amount instilled into GI Tube ( 270 / 270
Total)
[place] 270 / 270
Output:
Liquid stool amount 125 / 125
Colostomy 125 / 125
Drain Output (Total) 90 / 90 60 / 60
Right Middle Abdomen Dariel- 90 / 90 60 / 60
[place]
Gastrointestinal tube output ( 1160 / 1160
Total)
[place] 1160 / 1160
Urine, Rivera 5325 / 5325 500 / 500
Urine, Voided 1350 / 1350
Other:
Number of approximated MODERATE 1
amounts of urine
Number of approximated LARGE 2
amounts of urine
Lab Results
06/30/24 06:23
06/30/24 06:23
Physical Exam
-
General: No Acute Distress and AOx3
HEENT: Grossly Normal
Abdomen: Soft, Non Distended, Tender (Appropriately tender near midline incision), No Guarding, No Rebound and Other (Midline incision healing well with intermittent elliott, Telfa tanner removed, no purulent drainage or erythema; ostomy pink and
productive of stool)
Neurological: Other (Slight weakness noted on right hip flexion, good strength bilaterally at the ankles; sensation intact to light touch bilaterally)
Skin: Warm and Dry
Wound: No Signs of Infection, Dressing in Place and No Skin Erythema
--- NOTE | 2024-06-30 10:55 | W.PN.ID1 ---
Date of Service
Date of Service: June 30, 2024
Today's Communication
- Transition Zosyn (d8) to Augmentin 875mg po bid through 07/06/24.
-Continue prophylactic enteric vancomycin 125 mg daily for history of C. difficile through 07/11/24.
Assessment / Plan
# Perforated sigmoid diverticulitis with free air and abscess
# Fever - resolved
# Leukocytosis resolved
# New afib
# History of C. difficile
# Uterine fibroid
- 06/24 s/p sigmoidectomy, creation of end-colostomy, repair of serosal injury, DEVORAH, RSO, L salpingectomy, left ureteral stent placement; stent removed 06/28
-Blood cultures neg to date
- Transition Zosyn (d8) to Augmentin 875mg po bid through 07/06/24.
-Continue prophylactic enteric vancomycin 125 mg daily for history of C. difficile through 07/11.
Chief Complaint
-: Other (perforated diverticulitis)
Subjective / Review of Systems
Feeling better. On liquid diet.
Vital Signs / Physical Exam
Vital Signs
Vital Signs
Temp Pulse Resp BP Pulse Ox
97.7 F 50 18 163/75 99
06/30/24 07:10 06/30/24 07:10 06/30/24 07:10 06/30/24 07:10 06/30/24 07:10
Physical Exam
Constitutional: No Acute Distress and Comfortable
Cardiovascular: Regular Rate and S1/S2
Pulmonary: Clear
Gastrointestinal: Soft, Non Tender, Non Distended and Decreased Bowel Sounds
Genito-Urinary: Rivera and Clear Urine
Extremities: Negative Edema
Neurological: AO x 3
Objective Data
Lab Data
Lab Results
06/30/24 06:23
06/30/24 06:23
Estimated Creat Clear 81 ml/min 04/03/25 06:23
Lactic Acid Cancelled 06/23/24 23:00
Total Bilirubin 0.4 mg/dl (0.2-1.3) 06/27/24 05:11
AST 25 U/L (14-36) 06/27/24 05:11
ALT 17 U/L (0-35) 06/27/24 05:11
Alkaline Phosphatase 78 U/L (38-126) 06/27/24 05:11
Most recent labs reviewed.
06/24/24 CT a/p wo contrast: New large amount of intraperitoneal free air suspicious for perforated acute diverticulitis, a significant change compared to the CT from yesterday. Given these findings, percutaneous drainage of pelvic abscess not
performed.
06/23/24 CT a/p: Large mixed attenuation pelvic mass midline to the right again seen measuring greater than 10 cm most likely a degenerated uterine fibroid, predominantly stable in comparison to recent prior study. Markedly limited evaluation of
intestinal tract without oral contrast and with paucity of intrapelvic fat with suspected prominent thickening of the wall of the sigmoid colon suspicious for colitis or diverticulitis with A FEW SMALL ACCOMPANYING ABNORMAL FOCAL FLUID COLLECTIONS
SUSPICIOUS FOR ABSCESSES, largest on the left pelvic sidewall measuring 4.7 cm in greatest dimension, slightly increased from recent prior study.
--- NOTE | 2024-06-30 11:21 | W.PN.CD ---
Today's Communication / Plan
-
Watch on tele
Monitor BP
Eventual Eliquis
Outpatient f/u with Dr. Spencer to further discuss and monitor AFib and treatment options
Impression / Plan
-
S/p complex abdominal surgery
Paroxysmal AFib
- [id number] is 2 (age1, female gender) and 3 if she is confirmed to have HTN
- No AFib in almost 24 hours
- I agree with Dr. Spencer => add Eliquis (if affordable, other agent if Eliquis too expensive) when further improved from surgery
Elevated blood pressure w/o confirmed HTN
- Continue to monitor for now
Sinus bradycardia
- Monitor
- May prevent chronic rate control meds
- Can consider PRN propranolol short acting for breakthrough AFib
Hypothyroidism:
-as above
Blood loss anemia
Subjective: No CP and no palps
Data:
Tele review 06/30/2024 at about 0840 hrs showed only NSR/SB the prior 12-18 hrs
Echo 06/29/2024: LVEF 60%, mild LAE, mild MR
EKG 06/29/2024: SB 46 bpm
EKG 06/28/2024: AFIb 122 bpm, DENAE
Physical Exam
Vital Signs/Labs
Vital Signs
Temp Pulse Resp BP Pulse Ox
97.7 F 50 18 163/75 99
06/30/24 07:10 06/30/24 07:10 06/30/24 07:10 06/30/24 07:10 06/30/24 07:10
06/29/24 06/30/24 07/01/24
06:59 06:59 06:59
Actual Weight 57.833 kg 57.153 kg
06/30/24 06:23
06/30/24 06:23
Magnesium 1.6 mg/dl (1.6-2.3) 06/29/24 06:15
TSH 6.63 uIU/ml (0.47-4.68) H 06/28/24 07:32
Free T4 1.17 ng/dl (0.78-2.19) 06/28/24 07:32
Physical Exam
Constitutional: No acute distress
EENT: Anicteric
Cardiovascular: Rhythm & rate is regular and Pedal edema is absent
Respiratory: Respiratory effort normal
GI: Soft
Neuro/Psych: AO x 3
Data Reviewed
-
Date of Service: June 30, 2024
[2024-06-30 11:35] VITALS: BP 143/69
[2024-06-30] MEDS: AUGMENTIN 875 MG/125 MG 1 TABLET PO ×2 (12:14→20:28)
[2024-06-30] MEDS: SYNTHROID 75 MCG PO (13:39)
--- NOTE | 2024-06-30 15:01 | W.PN.HOSP.TC ---
Today's Communication/Plan
-
Clear liquid diet
Transition to oral antibiotics
Continue physical therapy.
Initiate Eliquis
Cardiac monitoring for recurrent A-fib
Assessment / Plan
Assessment / Plan
Impression:
Acute severe recurrent complicated diverticulitis with sigmoid perforation
Sepsis secondary to above
Uterine fibroid on CT scan
Hypocalcemia
A-fib with RVR
Other conditions:
Prior history of C. difficile.
Hypothyroidism on replacement
Plan:
CT AP:
Large mixed attenuation pelvic mass midline to the right again seen measuring greater than 10 cm most likely a degenerated uterine fibroid, predominantly stable in comparison to recent prior study.
Markedly limited evaluation of intestinal tract without oral contrast and with paucity of intrapelvic fat with suspected prominent thickening of the wall of the sigmoid colon suspicious for colitis or diverticulitis with A FEW SMALL ACCOMPANYING
ABNORMAL FOCAL FLUID COLLECTIONS SUSPICIOUS FOR ABSCESSES, largest on the left pelvic sidewall measuring 4.7 cm in greatest dimension, slightly increased from recent prior study.
Patient with episode of perforation sigmoid
Status post emergent ex lap with sigmoidectomy, creation of end colostomy, repair of serosal injury, repair of serosal injury, rigid proctosigmoidoscopy; DEVORAH, RSO, L salpingectomy with likely oophorectomy in colon specimen by Ob-Saw Sharpener; cystoscopy
with left ureteral stent placement by Urology; TAP block by anesthesia
NG tube removed on 06/29
Monitor ostomy output
Continue with pain control
Continue with IV fluids
Clear liquid diet on 06/30
Status post left ureteral stent placement and Rivera catheter placement. Ureteral stent removed on 06/28
Rivera removed on 06/29
Monitor urinary output.
Monitor NASEEM drain output.
Downtrend in hemoglobin likely dilutional and also with possible blood loss. Repeat h/h pending.
Antibiotics transition from Zosyn to Augmentin on 06/30 to complete antibiotic course 03/07/2025
Continue enteral vancomycin via NG tube
Acute postoperative anemia
Hemoglobin drifted down postoperatively from 12-9's
Monitor closely with initiation of anticoagulation.
Paroxysmal A-fib with RVR.
Likely triggered by pain.
Initiated on Cardizem drip on 06/28 back to sinus
Echocardiogram with preserved biventricular function with no other disease
Continue cardiac monitoring
Cardiology input appreciated
[id number] 2. Postoperative A-fib with relatively low risk.
Initiated on Eliquis on 06/30
Right lower extremity weakness postoperatively
Exam with decreased hip flexion, knee extension and decreased sensory in the medial aspect of the leg. No other focal findings. 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 Patient reports improvement over the last [address] head with no acute abnormality
Continue physical therapy
Hypothyroidism
Noted mild elevation of TSH with normal free T4
Resume oral levothyroxine
DVT prophylaxis Lovenox
Full code
Anticipated Discharge: > 48 hours
Subjective/Interval History
-
Date of Service: June 30, 2024
Objective Data
-
Labs:
Laboratory Results
06/30/24
06:23
WBC 9.8
Hgb 9.8 L
Hct 27.5 L
Plt Count 410 H
Sodium 137
Potassium 4.1
Chloride 104
Carbon Dioxide 28
BUN 5 L
Creatinine 0.6
Glucose 141 H
Calcium 8.4
Vital Signs:
Vital Signs
Temp Pulse Resp BP Pulse Ox
97.8 F 55 18 143/69 99
06/30/24 11:35 06/30/24 11:35 06/30/24 11:35 06/30/24 11:35 06/30/24 11:35
I&O
06/29/24 06/30/24 07/01/24
06:59 06:59 06:59
Intake Total 2870 / 2870 50 / 50 280 / 280
Output Total 6700 / 6700 1909
Balance -3830 / -3830 -1859 / -1859 280 / 280
Physical Exam
-
General: Well Developed and No Apparent Distress
HEENT: Normocephalic, Atraumatic and Moist Mucous Membranes
Respiratory: Clear to Auscultation
Cardiac: Regular Rhythm and S1/S2; Negative Murmur, Rub or Gallop
GI: Soft, Nontender, Nondistended, Normal Bowel Sounds, Ostomy and Other (NASEEM drain); Negative Organomegaly
Rectal: Deferred by Provider
Musculoskeletal: No Clubbing, No Cyanosis and No Edema
Skin: Negative Rash
Neuro: Awake, Alert, Oriented, AO x 3 and Other (Right lower extremity with decreased hip flexion, knee extension and decreased sensory at the medial aspect of the leg)
[2024-06-30 15:20] VITALS: BP 144/90
--- NOTE | 2024-06-30 15:50 | W.PN.OBG.DWH ---
Today's Communication / Plan
-
continue care per primary team
Assessment/Plan
-
POD #5 s/p exploratory lap, sigmoidectomy, end to end anastomosis, creation of end-colostomy, repair of serosal injury, rigid proctosigmoidoscopy; DEVORAH, RSO, Left salpingectomy, cystoscopy with left ureteral stent placement by Urology; TAP block for
perforated bowel diverticulum, pelvic mass involving bowel and suspected involvement of left ovary.
Severe diverticular disease.
Enlarged fibroid uterus
Continue postop mgmt per primary service/colorectal service
Pathology pending
Pain control prn, encourage ambulation
Antibiotics per ID
Subjective Data
-
Patient doing well with no complaints. Voiding spontaneously. Denies vaginal bleeding. No nausea/vomiting.
Objective Data
-
Laboratory Results
06/30/24 06:23
06/30/24 06:23
Vital Signs
Temp Pulse Resp BP Pulse Ox
98.0 F 54 18 144/90 98
06/30/24 15:20 06/30/24 15:20 06/30/24 15:20 06/30/24 15:20 06/30/24 15:20
PE:
General: well appearing
Abd: soft, nontender, nondistended, incision c/d/i, drain with serosanguineous fluid
Ext: nontender
[2024-06-30] MEDS: ZOFRAN 4 MG IV (17:29)
[2024-06-30 19:00] VITALS: BP 138/81
[2024-06-30] MEDS: ELIQUIS 5 MG PO (20:28)
[2024-06-30 23:00] VITALS: BP 132/76
[2024-06-30] MEDS: DILAUDID 0.5 MG IV (23:50)
[2024-07-01] VITALS (7 sets, daily range): BP systolic 130–159; BP diastolic 74–93; BMI 21.2
[2024-07-01] MEDS: SYNTHROID 75 MCG PO (06:33)
[2024-07-01] MEDS: ELIQUIS 5 MG PO ×2 (08:15→19:46)
[2024-07-01] MEDS: AUGMENTIN 875 MG/125 MG 1 TABLET PO ×2 (08:15→19:47)
[2024-07-01] MEDS: PROTONIX IV 40 MG IV (08:16)
[2024-07-01] MEDS: FIRVANQ 125 MG PO (08:16)
[2024-07-01] MEDS: NSS (PRESERVATIVE FREE) 10 ML IV (08:17)
--- NOTE | 2024-07-01 09:08 | W.PN.CRS1 ---
Today's Communication / Plan
-
regular diet
Assessment/Plan
-
63-year-old female with hypothyroidism, HTN, history of C. difficile, fibroid uterus and recurrent diverticulitis (recent admission for diverticulitis with abscess s/p IR aspiration) who presented with worsening abdominal pain, initially found to
have worsening diverticulitis with significantly larger abscess, but subsequently developed free air
POD 7 ex lap, sigmoidectomy, drainage of abscess, DEVORAH, RSO, left salpingectomy, cystoscopy with left ureteral stent, TAP block
no labs today, vitals normal
�Advance to regular
�Continue Tylenol, Toradol, Dilaudid as needed
� NASEEM to bulb suction - will remove prior to discharge
� Appreciate ID, transitioned to oral vanco and augmentin
� OOB; appreciate PT
-RLE weakness seems to be improving; likely due to positioning on OR table (ie- was in lithotomy); slowly improving
- Appreciate cardiology; Eliquis has been restarted
� Appreciate hospitalist
Subjective Data
Procedure
06/25- exlap, sigmoidectomy, creation of end-colostomy, repair of serosal injury, rigid proctosigmoidoscopy; DEVORAH, RSO, L salpingectomy with likely oophorectomy in colon specimen by Ob-Knit Goods Washer; cystoscopy with left ureteral stent placement by Urology; TAP
block by anesthesia
Subjective Data
Date of Service: July 01, 2024
Patient states she has no nausea or vomiting. She did well with clears. She virtually has no pain. She has been out of bed.
Objective Data
-
Vital Signs
Temp Pulse Resp BP Pulse Ox
97.8 F 53 15 159/89 97
07/01/24 07:20 07/01/24 07:20 07/01/24 07:20 07/01/24 07:20 07/01/24 07:20
Intake & Output
0407/01/24 07/02/24
06:59 06:59 06:59
Intake Total 50 / 50 1750 / 1750
Output Total 1909 / 1909 2760 / 276
Balance -1860 / -1860 -1010 / -1010
Intake:
Oral fluids 1300 / 1300
IV fluids (Total) 400 / 400
IV piggybacks 50 / 50 50 / 50
Output:
Liquid stool amount 130 / 130
Colostomy 130 / 130
Drain Output (Total) 60 / 60 80 / 80
Right Middle Abdomen Dariel- 60 / 60 80 / 80
[place]
Urine, Rivera 500 / 500
Urine, Voided 1350 / 1350 2550 / 2550
Other:
Number of approximated MODERATE 1
amounts of urine
Number of approximated LARGE 2
amounts of urine
Lab Results
06/30/24 06:23
06/30/24 06:23
Physical Exam
-
General: No Acute Distress and AOx3
Abdomen: Soft, Non Distended and Tender
Skin: Warm and Dry
Incision: Clear, Dry, Intact
--- NOTE | 2024-07-01 09:11 | W.PN.CD ---
Addendum entered and electronically signed by Griffin Jarquin MD 07/01/24 09:24:
-
-
Communicated with Dr. Finch and he did initiate Eliquis yesterday.
-
-
Original Note:
Today's Communication / Plan
-
-
-
F/u with Dr. Spencer in our office in 1-2 months
Add Eliquis 5 BID (if affordable, another oral anticoagulant if Eliquis not affordable) when further improved and prior to hospital discharge
Monitor BP here and also at home to see if HTN is confirmed
Can consider PRN propranolol IR (immediate release) 20 mg q6hrs PRN palps/breakthrough AFib at discharge if HR further improved
Cardiology will sign off
-
-
Impression / Plan
-
S/p complex abdominal surgery
Paroxysmal AFib
- [id number] is 2 (age1, female gender) and 3 if she is confirmed to have HTN
- No AFib in almost 48 hours
- I agree with Dr. Spencer => add Eliquis (if affordable, other agent if Eliquis too expensive) when further improved from surgery
- For now no rate or rhythm control meds
- Can consider PRN propranolol IR (immediate release) 20 mg q6hrs PRN palps/breakthrough AFib at discharge if HR further improved
Elevated blood pressure w/o confirmed HTN
- Continue to monitor for now
Sinus bradycardia
- Monitor, improved as now awake HR 70 but mostly less than 60
- May prevent chronic rate control meds
Hypothyroidism:
-as above
Blood loss anemia
Subjective: No CP and no palps
Data:
Tele review 07/01/2024 at about 0900 hrs showed only NSR/SB the prior 24 hrs, but trending up this morning
Echo 06/29/2024: LVEF 60%, mild LAE, mild MR
EKG 06/29/2024: SB 46 bpm
EKG 06/28/2024: AFIb 122 bpm, DENAE
Physical Exam
Vital Signs/Labs
Vital Signs
Temp Pulse Resp BP Pulse Ox
97.8 F 53 15 159/89 97
07/01/24 07:20 07/01/24 07:20 07/01/24 07:20 07/01/24 07:20 07/01/24 07:20
06/30/24 07/01/24 07/02/24
06:59 06:59 06:59
Actual Weight 57.153 kg 56.109 kg
06/30/24 06:23
06/30/24 06:23
Magnesium 1.6 mg/dl (1.6-2.3) 06/29/24 06:15
TSH 6.63 uIU/ml (0.47-4.68) H 06/28/24 07:32
Free T4 1.17 ng/dl (0.78-2.19) 06/28/24 07:32
Physical Exam
Constitutional: No acute distress
EENT: Anicteric
Cardiovascular: Rhythm & rate is regular and Pedal edema is absent
Respiratory: Respiratory effort normal and Lungs clear to auscul.
GI: Soft
Neuro/Psych: Alert
Data Reviewed
-
Date of Service: July 01, 2024
--- NOTE | 2024-07-01 11:25 | W.PN.ID1 ---
Date of Service
Date of Service: July 01, 2024
Today's Communication
- Continue Augmentin 875mg po bid through 07/06/24.
-Continue prophylactic enteric vancomycin 125 mg daily for history of C. difficile through 07/11.
-ID will sign off. Call prn.
Assessment / Plan
# Perforated sigmoid diverticulitis with free air and abscess
# Fever - resolved
# Leukocytosis resolved
# New afib
# History of C. difficile
# Uterine fibroid
- 06/24 s/p sigmoidectomy, creation of end-colostomy, repair of serosal injury, DEVORAH, RSO, L salpingectomy, left ureteral stent placement; stent removed 06/28
-Blood cultures neg to date
- s/p Zosyn (8d)
- Continue Augmentin 875mg po bid through 07/06/24.
-Continue prophylactic enteric vancomycin 125 mg daily for history of C. difficile through 07/11.
-ID will sign off.
Chief Complaint
-: Other (perforated diverticulitis)
Subjective / Review of Systems
Tolerating abx.
Getting tired sitting up.
Vital Signs / Physical Exam
Vital Signs
Vital Signs
Temp Pulse Resp BP Pulse Ox
97.8 F 53 15 159/89 97
07/01/24 07:20 07/01/24 07:20 07/01/24 07:20 07/01/24 07:20 07/01/24 07:20
Physical Exam
Constitutional: No Acute Distress and Comfortable
Cardiovascular: Regular Rate and S1/S2
Pulmonary: Clear
Gastrointestinal: Soft, Non Tender, Non Distended and Decreased Bowel Sounds
Genito-Urinary: Rivera and Clear Urine
Extremities: Negative Edema
Neurological: AO x 3
Objective Data
Lab Data
Lab Results
06/30/24 06:23
06/30/24 06:23
Estimated Creat Clear 81 ml/min 06/30/24 06:23
Lactic Acid Cancelled 06/23/24 23:00
Total Bilirubin 0.4 mg/dl (0.2-1.3) 06/27/24 05:11
AST 25 U/L (14-36) 06/27/24 05:11
ALT 17 U/L (0-35) 06/27/24 05:11
Alkaline Phosphatase 78 U/L (38-126) 06/27/24 05:11
Most recent labs reviewed.
06/24/24 CT a/p wo contrast: New large amount of intraperitoneal free air suspicious for perforated acute diverticulitis, a significant change compared to the CT from yesterday. Given these findings, percutaneous drainage of pelvic abscess not
performed.
06/23/24 CT a/p: Large mixed attenuation pelvic mass midline to the right again seen measuring greater than 10 cm most likely a degenerated uterine fibroid, predominantly stable in comparison to recent prior study. Markedly limited evaluation of
intestinal tract without oral contrast and with paucity of intrapelvic fat with suspected prominent thickening of the wall of the sigmoid colon suspicious for colitis or diverticulitis with A FEW SMALL ACCOMPANYING ABNORMAL FOCAL FLUID COLLECTIONS
SUSPICIOUS FOR ABSCESSES, largest on the left pelvic sidewall measuring 4.7 cm in greatest dimension, slightly increased from recent prior study.
--- NOTE | 2024-07-01 12:56 | CM ---
Chart reviewed. Met with pt and her brother at bedside
Discussed SNF. Pt stating she does not want SNF, she prefers to go home. She will discharge to brother's home in [place] - will have family support
Requested referral to [facility]
TT sent to [facility] Liaison for home care needs
Plan - anticipate home with [facility]
--- NOTE | 2024-07-01 14:04 | W.PN.HOSP.TC ---
Addendum entered and electronically signed by Ronny Finch MD 07/01/24 15:17:
Hypokalemia treated
Original Note:
Today's Communication/Plan
-
Regular diet
Oral antibiotics.
PT
Assessment / Plan
Assessment / Plan
Impression:
Acute severe recurrent complicated diverticulitis with sigmoid perforation
Sepsis secondary to above
Uterine fibroid on CT scan
Hypocalcemia
A-fib with RVR
Other conditions:
Prior history of C. difficile.
Hypothyroidism on replacement
Plan:
CT AP:
Large mixed attenuation pelvic mass midline to the right again seen measuring greater than 10 cm most likely a degenerated uterine fibroid, predominantly stable in comparison to recent prior study.
Markedly limited evaluation of intestinal tract without oral contrast and with paucity of intrapelvic fat with suspected prominent thickening of the wall of the sigmoid colon suspicious for colitis or diverticulitis with A FEW SMALL ACCOMPANYING
ABNORMAL FOCAL FLUID COLLECTIONS SUSPICIOUS FOR ABSCESSES, largest on the left pelvic sidewall measuring 4.7 cm in greatest dimension, slightly increased from recent prior study.
Patient with episode of perforation sigmoid
Status post emergent ex lap with sigmoidectomy, creation of end colostomy, repair of serosal injury, repair of serosal injury, rigid proctosigmoidoscopy; DEVORAH, RSO, L salpingectomy with likely oophorectomy in colon specimen by Ob-Sample Washer; cystoscopy
with left ureteral stent placement by Urology; TAP block by anesthesia
NG tube removed on 06/29
Monitor ostomy output
Continue with pain control
Continue with IV fluids
Advance to regular diet and/for
Status post left ureteral stent placement and Rivera catheter placement. Ureteral stent removed on 06/28
Rivera removed on 06/29
Monitor urinary output.
Monitor NASEEM drain output.
Antibiotics transition from Zosyn to Augmentin on 06/30 to complete antibiotic course 07/06/2024
Continue enteral vancomycin for C. difficile
Acute postoperative anemia
Hemoglobin drifted down postoperatively from 12-9's
Monitor closely with initiation of anticoagulation.
Paroxysmal A-fib with RVR.
Likely triggered by pain.
Initiated on Cardizem drip on 06/28 back to sinus
Echocardiogram with preserved biventricular function with no other disease
Continue cardiac monitoring
Cardiology input appreciated
[id number] 2. Postoperative A-fib with relatively low risk.
Initiated on Eliquis on 06/30
Right lower extremity weakness postoperatively
Exam with decreased hip flexion, knee extension and decreased sensory in the medial aspect of the leg. No other focal findings. 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 Patient reports improvement over the last [address] head with no acute abnormality
Continue physical therapy
Hypothyroidism
Noted mild elevation of TSH with normal free T4
Resume oral levothyroxine
DVT prophylaxis Lovenox
Full code
Disposition: Patient is appropriate for intermediate facility rehab, although he declined that. Monitor progress with physical therapy over the next 24 to 48 hours. Plan is to discharge home with [facility].
Anticipated Discharge: 24 - 48 hours
Subjective/Interval History
-
Date of Service: July 01, 2024
Objective Data
-
Vital Signs:
Vital Signs
Temp Pulse Resp BP Pulse Ox
98.0 F 62 16 134/74 97
07/01/24 11:05 07/01/24 11:05 07/01/24 11:05 07/01/24 11:05 07/01/24 11:05
I&O
06/30/24 07/01/24 07/02/24
06:59 06:59 06:59
Intake Total 50 / 50 1750 / 1750
Output Total 1909 / 1909 2760 / 2760
Balance -1860 / -1860 -1010 / -1010
Physical Exam
-
General: Well Developed and No Apparent Distress
HEENT: Normocephalic, Atraumatic and Moist Mucous Membranes
Respiratory: Clear to Auscultation
Cardiac: Regular Rhythm and S1/S2; Negative Murmur, Rub or Gallop
GI: Soft, Nontender, Nondistended, Normal Bowel Sounds, Ostomy and Other (NASEEM drain); Negative Organomegaly
Rectal: Deferred by Provider
Musculoskeletal: No Clubbing, No Cyanosis and No Edema
Skin: Negative Rash
Neuro: Awake, Alert, Oriented, AO x 3 and Other (Right lower extremity with decreased hip flexion, knee extension and decreased sensory at the medial aspect of the leg)
--- NOTE | 2024-07-01 15:29 | VNURNOTE ---
Home health liaison met with patient to discuss [facility] services, visit scheduling/frequency, homebound status and pet policy. Patient agreeable to [facility] services and understands home visits will be 1-2 times a week to assess and teach medical
management. Patient aware a visiting nurse will contact her for start of care within 1-2 days after discharge from . Patient will be staying with her brother in [place]. [facility] Referral completed in care port
[2024-07-01] MEDS: TYLENOL 650 MG PO (18:34)
[2024-07-01] MEDS: DILAUDID 0.5 MG IV (22:27)
[2024-07-02 03:00] VITALS: BP 148/83
[2024-07-02 06:00] VITALS: BMI 21.3
[2024-07-02] MEDS: SYNTHROID 75 MCG PO (06:13)
[2024-07-02 07:00] VITALS: BP 166/90
[2024-07-02] MEDS: NSS (PRESERVATIVE FREE) 10 ML IV (08:59)
[2024-07-02] MEDS: ELIQUIS 5 MG PO ×2 (08:59→19:54)
[2024-07-02] MEDS: FIRVANQ 125 MG PO (08:59)
[2024-07-02] MEDS: AUGMENTIN 875 MG/125 MG 1 TABLET PO ×2 (08:59→19:54)
[2024-07-02] MEDS: PROTONIX IV 40 MG IV (09:00)
[2024-07-02] MEDS: FLUSH (NSS) 2 FLUSH IV (09:00)
--- NOTE | 2024-07-02 09:43 | W.PN.HOSP.TC ---
Today's Communication/Plan
-
Add PRN propranolol.
Assessment / Plan
Assessment / Plan
Physical Exam
-
General: Well Developed and No Apparent Distress
HEENT: Normocephalic, Atraumatic and Moist Mucous Membranes
Respiratory: Clear to Auscultation
Cardiac: Regular Rhythm and S1/S2.
GI: Soft, Nontender, Nondistended, Normal Bowel Sounds, Ostomy and Other (NASEEM drain).
Rectal: no bleeding.
Musculoskeletal: No Clubbing, No Cyanosis and No Edema
Skin: Negative Rash
Neuro: Awake, Alert, Oriented, AO x 3 and Other (Right lower extremity with decreased hip flexion, knee extension and decreased sensory at the medial aspect of the leg)
Psych: calm.
Impression:
Acute severe recurrent complicated diverticulitis with sigmoid perforation
Sepsis secondary to above
Uterine fibroid on CT scan
Hypocalcemia
A-fib with RVR
Other conditions:
Prior history of C. difficile.
Hypothyroidism on replacement
Plan:
CT AP:
Large mixed attenuation pelvic mass midline to the right again seen measuring greater than 10 cm most likely a degenerated uterine fibroid, predominantly stable in comparison to recent prior study.
Markedly limited evaluation of intestinal tract without oral contrast and with paucity of intrapelvic fat with suspected prominent thickening of the wall of the sigmoid colon suspicious for colitis or diverticulitis with A FEW SMALL ACCOMPANYING
ABNORMAL FOCAL FLUID COLLECTIONS SUSPICIOUS FOR ABSCESSES, largest on the left pelvic sidewall measuring 4.7 cm in greatest dimension, slightly increased from recent prior study.
Patient with episode of perforation sigmoid
Status post emergent ex lap with sigmoidectomy, creation of end colostomy, repair of serosal injury, repair of serosal injury, rigid proctosigmoidoscopy; DEVORAH, RSO, L salpingectomy with likely oophorectomy in colon specimen by Ob-Timber Girdler; cystoscopy
with left ureteral stent placement by Urology; TAP block by anesthesia
NG tube removed on 06/29
Monitor ostomy output
Continue with pain control
Continue with IV fluids
Advance to regular diet and/for
Status post left ureteral stent placement and Rivera catheter placement. Ureteral stent removed on 06/28
Rivera removed on 06/29
Monitor urinary output.
Monitor NASEEM drain output.
Antibiotics transition from Zosyn to Augmentin on 06/30 to complete antibiotic course 07/06/2024
Continue enteral vancomycin for C. difficile
Acute postoperative anemia
Hemoglobin drifted down postoperatively from 12-9's
Monitor closely with initiation of anticoagulation.
Paroxysmal A-fib with RVR.
Likely triggered by pain.
Initiated on Cardizem drip on 06/28 back to sinus
Echocardiogram with preserved biventricular function with no other disease
Continue cardiac monitoring
Per cardiology: PRN propranolol IR (immediate release) 20 mg q6hrs PRN palps/breakthrough AFib at discharge if HR further improved
Cardiology input appreciated
[id number] 2. Postoperative A-fib with relatively low risk.
Initiated on Eliquis on 06/30
Right lower extremity weakness postoperatively
Exam with decreased hip flexion, knee extension and decreased sensory in the medial aspect of the leg. No other focal findings. 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 Patient reports improvement over the last [address] head with no acute abnormality
Continue physical therapy
Hypothyroidism
Noted mild elevation of TSH with normal free T4
Resume oral levothyroxine
DVT prophylaxis Lovenox
Full code
Disposition: Patient is appropriate for longterm facility rehab, although she declined that. Monitor progress with physical therapy over the next 24 to 48 hours. Plan is to discharge home with [facility].
Total time spent to see the patient, examine the patient, review data and lab results, discuss treatment plan with patient, nursing staff, consultants around 55 minutes
Anticipated Discharge: 24 - 48 hours
Subjective/Interval History
-
Date of Service: July 02, 2024
Objective Data
-
Vital Signs:
Vital Signs
Temp Pulse Resp BP Pulse Ox
97.9 F 64 18 166/90 97
07/02/24 07:00 07/02/24 07:00 07/02/24 07:00 07/02/24 07:00 07/02/24 07:00
I&O
07/01/24 07/02/24 07/03/24
06:59 06:59 06:59
Intake Total 1750 / 1750 1317 / 1317
Output Total 2760 / 2760 150 / 150
Balance -1010 / -1010 1167 / 1167
[2024-07-02 11:00] VITALS: BP 148/91
--- NOTE | 2024-07-02 11:22 | W.PN.URO.CBU ---
Today's Communication / Plan
-
no gu interventions
Assessment / Plan
-
s/p hysterectomy and colon resection for perforated diverticulitis
cysto and left ureteral stent placement performed intra-op to identify left ureter- which closely abutted disease process
urologically stabke will sign off
Diagnosis
-
Date of Service: July 02, 2024
-
Patient Diagnosis:
Post Op Day:
Patient Diagnosis:
Post Op Day:
Patient Diagnosis:
perforated diverticulitis s/p hysterectomy and colon resection
cysto and left ureteral stent placement
06/24
Subjective
-
no gu complaints
Objective
-
Vital Signs
Temp Pulse Resp BP Pulse Ox
97.9 F 64 18 166/90 97
07/02/24 07:00 07/02/24 07:00 07/02/24 07:00 07/02/24 07:00 07/02/24 07:00
Intake and Output
07/01/24 07/02/24 07/03/24
06:59 06:59 06:59
Intake Total 1750 / 1750 1317 / 1317
Output Total 2760 / 2760 150 / 150
Balance -1010 / -1010 1167 / 1167
Intake:
Oral fluids 1300 / 1300 1317 / 1317
IV fluids (Total) 400 / 400
IV piggybacks 50 / 50
Output:
Liquid stool amount 130 / 130 100 / 100
Colostomy 130 / 130 100 / 100
Drain Output (Total) 80 / 80 50 / 50
Right Middle Abdomen Dariel- 80 / 80 50 / 50
Cartwright
Urine, Voided 2550 / 2550
Other:
Number of approximated MODERATE 1
amounts of urine
Number of approximated LARGE 1
amounts of urine
Laboratory Results
06/30/24 06:23
06/30/24 06:23
Review of Systems
-
: No Symptoms
Physical Exam
-
General - well developed, well nourished, no acute distress
Chest - clear bilaterally
Abdomen - soft, non-tender, positive bowel sounds, no CVAT, no incisional pain or distention
Genitalia - normal
Rectal - normal
Skin - warm & dry with no rash
Neuro - AOx3, no motor deficits
Extremities - no clubbing, no cyanosis, no edema
Incision - clean, dry
Dressing - clean, dry, intact
Care Review
Data Reviewed
Discussed with: Nursing
--- NOTE | 2024-07-02 13:57 | W.PN.CRS1 ---
Today's Communication / Plan
-
stoma teaching
c/w regular diet
PO analgesics
Assessment/Plan
-
63-year-old female with hypothyroidism, HTN, history of C. difficile, fibroid uterus and recurrent diverticulitis (recent admission for diverticulitis with abscess s/p IR aspiration) who presented with worsening abdominal pain, initially found to
have worsening diverticulitis with significantly larger abscess, then subsequently developed free air
POD 8 ex lap, sigmoidectomy, drainage of abscess, DEVORAH, RSO, left salpingectomy, cystoscopy with left ureteral stent, TAP block
AFVSS
Doing well
� Continue regular diet
� Transition to PO analgesics
� NASEEM to bulb suction - will remove prior to discharge
� Appreciate ID, transitioned to oral vanco and augmentin
� OOB; appreciate PT
- Appreciate cardiology; Eliquis has been restarted
� Appreciate hospitalist
Stoma nursing team following, patient would like more teaching prior to d/c. anticipate readiness for d/c on Thursday
Subjective Data
Procedure
06/25- exlap, sigmoidectomy, creation of end-colostomy, repair of serosal injury, rigid proctosigmoidoscopy; DEVORAH, RSO, L salpingectomy with likely oophorectomy in colon specimen by Ob-Systems Engineer; cystoscopy with left ureteral stent placement by Urology; TAP
block by anesthesia
Subjective Data
Date of Service: July 02, 2024
Patient seen and examined at bedside with Dr. Hernandez. Denies n/v. Tolerating diet. OOB to chair. Does not yet feel comfortable caring for stoma. Pain improving.
Objective Data
-
Vital Signs
Temp Pulse Resp BP Pulse Ox
97.6 F 64 18 148/91 97
07/02/24 11:00 07/02/24 11:00 07/02/24 11:00 07/02/24 11:00 07/02/24 11:00
Intake & Output
07/01/24 07/02/24 07/03/24
06:59 06:59 06:59
Intake Total 1750 / 1750 1317 / 1317
Output Total 2760 / 2760 150 / 150
Balance -1010 / -1010 1167 / 1167
Intake:
Oral fluids 1300 / 1300 1317 / 1317
IV fluids (Total) 400 / 400
IV piggybacks 50 / 50
Output:
Liquid stool amount 130 / 130 100 / 100
Colostomy 130 / 130 100 / 100
Drain Output (Total) 80 / 80 50 / 50
Right Middle Abdomen Dariel- 80 / 80 50 / 50
Cartwright
Urine, Voided 2550 / 2550
Other:
Number of approximated MODERATE 1
amounts of urine
Number of approximated LARGE 1
amounts of urine
Lab Results
06/30/24 06:23
06/30/24 06:23
Physical Exam
-
General: No Acute Distress and AOx3
Abdomen: Soft, Non Distended, Tender and Other (stoma pink, viable and productive of stool/flatus. NASEEM with SSF)
Skin: Warm and Dry
Incision: Clear, Dry, Intact (elliott intact)
[2024-07-02 15:00] VITALS: BP 145/82
[2024-07-02 19:34] VITALS: BP 168/93
[2024-07-02] MEDS: TYLENOL 650 MG PO (20:07)
[2024-07-02 22:45] VITALS: BP 137/75
[2024-07-02] MEDS: ROXICODONE 5 MG PO (23:37)
[2024-07-03] MEDS: SYNTHROID 75 MCG PO (05:39)
[2024-07-03 05:45] VITALS: BMI 21.2
[2024-07-03 07:00] VITALS: BP 164/86
--- NOTE | 2024-07-03 08:28 | W.PN.HOSP.TC ---
Today's Communication/Plan
-
.
Assessment / Plan
Assessment / Plan
Physical Exam
-
General: Well Developed and No Apparent Distress
HEENT: Normocephalic, Atraumatic and Moist Mucous Membranes
Respiratory: Clear to Auscultation
Cardiac: Regular Rhythm and S1/S2.
GI: Soft, Nontender, Nondistended, Normal Bowel Sounds, Ostomy and Other (NASEEM drain).
Rectal: no bleeding.
Musculoskeletal: No Clubbing, No Cyanosis and No Edema
Skin: Negative Rash
Neuro: Awake, Alert, Oriented, AO x 3 and Other (Right lower extremity with decreased hip flexion, knee extension and decreased sensory at the medial aspect of the leg)
Psych: calm.
Impression:
Acute severe recurrent complicated diverticulitis with sigmoid perforation
Sepsis secondary to above
Uterine fibroid on CT scan
Hypocalcemia
A-fib with RVR
Other conditions:
Prior history of C. difficile.
Hypothyroidism on replacement
Plan:
CT AP:
Large mixed attenuation pelvic mass midline to the right again seen measuring greater than 10 cm most likely a degenerated uterine fibroid, predominantly stable in comparison to recent prior study.
Markedly limited evaluation of intestinal tract without oral contrast and with paucity of intrapelvic fat with suspected prominent thickening of the wall of the sigmoid colon suspicious for colitis or diverticulitis with A FEW SMALL ACCOMPANYING
ABNORMAL FOCAL FLUID COLLECTIONS SUSPICIOUS FOR ABSCESSES, largest on the left pelvic sidewall measuring 4.7 cm in greatest dimension, slightly increased from recent prior study.
Patient with episode of perforation sigmoid
Status post emergent ex lap with sigmoidectomy, creation of end colostomy, repair of serosal injury, repair of serosal injury, rigid proctosigmoidoscopy; DEVORAH, RSO, L salpingectomy with likely oophorectomy in colon specimen by Ob-Manager Speech; cystoscopy
with left ureteral stent placement by Urology; TAP block by anesthesia
NG tube removed on 06/29
Monitor ostomy output
Continue with pain control
Continue with IV fluids
Advance to regular diet and/for
Status post left ureteral stent placement and Rivera catheter placement. Ureteral stent removed on 06/28
Rivera removed on 06/29
Monitor urinary output.
Monitor NASEEM drain output.
Antibiotics transition from Zosyn to Augmentin on 06/30 to complete antibiotic course 07/06/2024, PRN Oral Zofran upon dc.
Continue enteral vancomycin for C. difficile
Acute postoperative anemia
Hemoglobin drifted down postoperatively from 12-9's
Monitor closely with initiation of anticoagulation.
Paroxysmal A-fib with RVR.
Likely triggered by pain.
Initiated on Cardizem drip on 06/28 back to sinus
Echocardiogram with preserved biventricular function with no other disease
Continue cardiac monitoring
Per cardiology: PRN propranolol IR (immediate release) 20 mg q6hrs PRN palps/breakthrough AFib at discharge if HR further improved
Cardiology input appreciated
[id number] 2. Postoperative A-fib with relatively low risk.
Initiated on Eliquis on 06/30
Right lower extremity weakness postoperatively
Exam with decreased hip flexion, knee extension and decreased sensory in the medial aspect of the leg. No other focal findings. 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 Patient reports improvement over the last [address] head with no acute abnormality
Continue physical therapy
Hypothyroidism
Noted mild elevation of TSH with normal free T4
Resume oral levothyroxine
DVT prophylaxis Lovenox
Full code
Disposition: Patient is appropriate for [facility] facility rehab, although she declined that. Monitor progress with physical therapy over the next 24 to 48 hours. Plan is to discharge home with [facility].
Total time spent to see the patient, examine the patient, review data and lab results, discuss treatment plan with patient, nursing staff around 55 minutes
Anticipated Discharge: > 48 hours
Subjective/Interval History
-
Date of Service: July 03, 2024
Objective Data
-
Vital Signs:
Vital Signs
Temp Pulse Resp BP Pulse Ox
98.4 F 49 15 164/86 98
07/03/24 07:00 07/03/24 07:00 07/03/24 07:00 07/03/24 07:00 07/03/24 07:00
I&O
07/02/24 07/03/24 07/04/24
06:59 06:59 06:59
Intake Total 1317 / 1317 720 / 720
Output Total 150 / 150 220 / 220
Balance 1167 / 1167 500 / 500
[2024-07-03] MEDS: ELIQUIS 5 MG PO ×2 (08:33→19:26)
[2024-07-03] MEDS: AUGMENTIN 875 MG/125 MG 1 TABLET PO ×2 (08:33→19:26)
[2024-07-03] MEDS: NSS (PRESERVATIVE FREE) 10 ML IV (08:34)
[2024-07-03] MEDS: PROTONIX IV 40 MG IV (08:34)
[2024-07-03] MEDS: FLUSH (NSS) 1 FLUSH IV (08:35)
[2024-07-03] MEDS: FIRVANQ 125 MG PO (09:11)
--- NOTE | 2024-07-03 10:49 | W.PN.OBG.DWH ---
Today's Communication / Plan
-
Can f/u with [employer] outpatient to ensure proper healing of vaginal cuff. 2 weeks and 8 weeks post-op
Assessment/Plan
-
POD #9 s/p exploratory lap, sigmoidectomy, end to end anastomosis, creation of end-colostomy, repair of serosal injury, rigid proctosigmoidoscopy; DEVORAH, RSO, Left salpingectomy, cystoscopy with left ureteral stent placement by Urology; for
perforated bowel diverticulum, pelvic mass involving bowel and suspected involvement of left ovary.
Severe diverticular disease.
Enlarged fibroid uterus
Continue postop mgmt per primary service/colorectal service
Pain control prn
Antibiotics per ID
Benign uterine, ovarian and tubal pathology noted.
Can f/u with [facility] FIN[employer] outpatient to ensure proper healing of vaginal cuff. 2 weeks and 8 weeks post-op
Subjective Data
-
Patient feeling okay, some nausea this morning after she got up to void. Has been tolerating small amounts of intake.
Objective Data
-
Laboratory Results
06/30/24 06:23
06/30/24 06:23
Vital Signs
Temp Pulse Resp BP Pulse Ox
98.4 F 49 15 164/86 98
07/03/24 07:00 07/03/24 07:00 07/03/24 07:00 07/03/24 07:00 07/03/24 07:00
NASEEM drain with scant serosanguienous fluid. 15cc emptied since 3AM
Gen: Nad well appearing
Abd: soft, mild ttp, nd. colostomy bag with green liquid
Incision: elliott intact, no erythema/induration/drainage
[2024-07-03 11:00] VITALS: BP 140/75
--- NOTE | 2024-07-03 14:38 | W.PN.CRS1 ---
Today's Communication / Plan
-
stoma teaching
Assessment/Plan
-
63-year-old female with hypothyroidism, HTN, history of C. difficile, fibroid uterus and recurrent diverticulitis (recent admission for diverticulitis with abscess s/p IR aspiration) who presented with worsening abdominal pain, initially found to
have worsening diverticulitis with significantly larger abscess, then subsequently developed free air
POD 9 ex lap, sigmoidectomy, drainage of abscess, DEVORAH, RSO, left salpingectomy, cystoscopy with left ureteral stent, TAP block
AFVSS
Doing well
Mild nausea today but no vomiting, overall tolerating diet with good outputs from stoma
� Continue regular diet
� Continue PO analgesics
� NASEEM to bulb suction - will remove prior to discharge
� Appreciate ID, transitioned to oral vanco and augmentin
� OOB; appreciate PT
- Appreciate cardiology; Eliquis has been restarted
� Appreciate hospitalist
Stoma nursing team following, patient would like more teaching prior to d/c. anticipate readiness for d/c on Thursday
Subjective Data
Procedure
06/25- exlap, sigmoidectomy, creation of end-colostomy, repair of serosal injury, rigid proctosigmoidoscopy; DEVORAH, RSO, L salpingectomy with likely oophorectomy in colon specimen by Ob-Belly Packer; cystoscopy with left ureteral stent placement by Urology; TAP
block by anesthesia
Subjective Data
Date of Service: July 03, 2024
Patient seen and examined at bedside with Dr. Hernandez. Denies vomiting but did have a little nausea with increase in activity. Tolerating diet. Pain improving.
Objective Data
-
Vital Signs
Temp Pulse Resp BP Pulse Ox
98.4 F 49 15 164/86 98
07/03/24 07:00 07/03/24 07:00 07/03/24 07:00 07/03/24 07:00 07/03/24 07:00
Intake & Output
07/02/24 07/03/24 07/04/24
06:59 06:59 06:59
Intake Total 1317 / 1317 720 / 720 900 / 900
Output Total 150 / 150 220 / 220
Balance 1167 / 1167 500 / 500 900 / 900
Intake:
Oral fluids 1317 / 1317 720 / 720 900 / 900
Output:
Liquid stool amount 100 / 100 175 / 175
Colostomy 100 / 100 175 / 175
Drain Output (Total) 50 / 50 45 / 45
Right Middle Abdomen Dariel- 50 / 50 45 / 45
Cartwright
Other:
Number of approximated MODERATE 1 1 1
amounts of urine
Number of approximated LARGE 1
amounts of urine
Lab Results
06/30/24 06:23
06/30/24 06:23
Physical Exam
-
General: No Acute Distress and AOx3
Abdomen: Soft, Non Distended, Tender (expected, incisional) and Other (stoma pink, viable and productive of stool/flatus. NASEEM with SSF)
Skin: Warm and Dry
Incision: Other (midline incision with intact staple line)
[2024-07-03 15:15] VITALS: BP 151/81
[2024-07-03] MEDS: TYLENOL 650 MG PO (19:26)
[2024-07-03] MEDS: ROXICODONE 5 MG PO (23:39)
[2024-07-04] MEDS: SYNTHROID 75 MCG PO (05:29)
[2024-07-04 05:58] VITALS: BMI 21.1
[2024-07-04 07:05] VITALS: BP 165/93
[2024-07-04 08:32] LABS: Hematocrit 31.8 % (37.0-47.0); Hemoglobin 10.9 g/dL (12.0-16.0); Mean Corp Hgb Conc. 34.3 g/dL (33.0-37.0); Mean Corpuscular Hgb 32.9 pg (27.0-31.0); Mean Corpuscular Volume 96.1 fL (81.0-99.0); Mean Platelet Volume 10.8 fL (7.4-10.4); Platelet Count 405 10^3/uL (130-400); Red Blood Cell Count 3.31 10^6/uL (4.20-5.40); Red Cell Dist. Width 14.9 % (11.5-14.5); White Blood Cell Count 10.7 10^3/uL (4.8-10.8)
[2024-07-04] MEDS: PROTONIX IV 40 MG IV (08:33)
[2024-07-04] MEDS: AUGMENTIN 875 MG/125 MG 1 TABLET PO (08:33)
[2024-07-04] MEDS: TYLENOL 650 MG PO (08:33)
[2024-07-04] MEDS: ELIQUIS 5 MG PO (08:33)
[2024-07-04] MEDS: NSS (PRESERVATIVE FREE) 10 ML IV (08:34)
[2024-07-04] MEDS: FIRVANQ PO (08:39)
--- NOTE | 2024-07-04 08:40 | W.PN.CRS1 ---
Today's Communication / Plan
-
as below
Assessment/Plan
-
63-year-old female with hypothyroidism, HTN, history of C. difficile, fibroid uterus and recurrent diverticulitis (recent admission for diverticulitis with abscess s/p IR aspiration) who presented with worsening abdominal pain, initially found to
have worsening diverticulitis with significantly larger abscess, then subsequently developed free air
POD 10 ex lap, sigmoidectomy, drainage of abscess, DEVORAH, RSO, left salpingectomy, cystoscopy with left ureteral stent, TAP block
AFVSS
WBC 10.7 from 9.8, Hb 10.9 from 9.8, BMP pending
� Continue regular diet
� Continue PO analgesics, tylenol and oxy PRN
� NASEEM removed this AM
� Appreciate ID, transitioned to oral vanco and augmentin
� OOB; appreciate PT
- Appreciate cardiology; cont Eliquis for pAfib
� Appreciate hospitalist
Dispo- pt declining SNF, plan for home today with VNA, patient to be staying with brother, f/u with me in 1-2 weeks for staple removal
Subjective Data
Procedure
06/25- exlap, sigmoidectomy, creation of end-colostomy, repair of serosal injury, rigid proctosigmoidoscopy; DEVORAH, RSO, L salpingectomy with likely oophorectomy in colon specimen by Ob-Mail Caller; cystoscopy with left ureteral stent placement by Urology; TAP
block by anesthesia
Subjective Data
Date of Service: July 04, 2024
No overnight events.
Pain controlled.
Denies nausea/vomiting. Tolerating diet.
+flatus +BMs +voiding
RLE weakness slowly improving.
Objective Data
-
Vital Signs
Temp Pulse Resp BP Pulse Ox
98.2 F 63 18 165/93 99
07/04/24 07:05 07/04/24 07:05 07/04/24 07:05 04/07/25 07:05 07/04/24 07:05
Intake & Output
07/03/24 07/04/24 07/05/24
06:59 06:59 06:59
Intake Total 720 / 720 2099 / 2099
Output Total 220 / 220 170 / 170
Balance 500 / 500 1930 / 1930
Intake:
Oral fluids 720 / 720 2099 / 2099
Output:
Liquid stool amount 175 / 175 150 / 150
Colostomy 175 / 175 150 / 150
Drain Output (Total) 45 / 45 20 / 20
Right Middle Abdomen Dariel- 45 / 45 20 / 20
Cartwright
Other:
Number of approximated MODERATE 1 5
amounts of urine
Lab Results
07/04/24 06:27
Physical Exam
-
General: No Acute Distress and AOx3
HEENT: Grossly Normal
Abdomen: Soft, Non Distended, Tender (Appropriately tender near midline incision), No Guarding, No Rebound and Other (Ostomy pink and productive of stool, no palpable hernia)
Skin: Warm and Dry
Incision: No Skin Erythema and Other (No purulent drainage; well-approximated with elliott; NASEEM-serosanguineous output, removed at bedside)
[2024-07-04 08:47] LABS: Blood Urea Nitrogen 17 mg/dl (7-17); Calcium 9.2 mg/dl (8.4-10.2); Carbon Dioxide 30 mmol/L (22-30); Chloride 98 mmol/L (98-107); Estimated Creatinine Clearance 69 ml/min; Glucose 98 mg/dl (70-99); Potassium 4.2 mmol/L (3.5-5.1); Sodium 138 mmol/L (135-145); eGFR > 60.00
--- NOTE | 2024-07-04 10:05 | WOUNDNOTE ---
WOC RN NOTE: Patient visited for ostomy teaching and pouch change. Pouch changed with pouch #[id number] and pouch#[id number]. Patient demonstrated ability to empty clean pouch and asked many appropriate questions. Patient given ample supplies for discharge.
Plan is for home with VN. CM given update.
--- NOTE | 2024-07-04 10:52 | W.DS.TRANS ---
DC Summary - Interior Block Wirer
-
Discharge Instructions:
Discharge Diagnosis/Procedures exlap, sigmoidectomy, creation of end-colostomy,
repair of serosal injury, rigid
proctosigmoidoscopy; DEVORAH, RSO, L salpingectomy
with likely oophorectomy in colon specimen by Ob
-Sr. Manager Marketing; cystoscopy with left ureteral stent
placement by Urology; TAP block by anesthesia
Diet Low Residue
Activity No strenuous activity
Additional Activity No lifting over 10lbs (gallon of milk)
Driving Restrictions No driving for 1 week
Bathing Restrictions OK to Shower
Instructions:
Stand-Alone Forms:
Changes to Home Medications: Yes
Discharge Medications:
DC Medications w/original date entered in [facility]
levothyroxine 75 mcg tablet (Synthroid) 75 mcg PO DAILY hypothyroidism 06/17/24
ondansetron HCl 4 mg tablet 4 mg PO Q8H PRN nausea and vomiting #20 tabs 07/03/24
acetaminophen 325 mg tablet 650 mg (2 x 325 mg) PO Q6HPRN PRN mild pain/ fever>100.5F #30 tabs 07/04/24
amoxicillin 875 mg-potassium clavulanate 125 mg tablet 1 tab PO Q12 #6 tabs 07/04/24
apixaban 5 mg tablet (Eliquis) 5 mg PO BID #60 tabs 07/04/24
oxycodone 5 mg tablet 5 mg PO Q4HPRN PRN severe pain #15 tabs 07/04/24
vancomycin 50 mg/mL oral solution 125 mg (2.5 mL) PO DAILY #7 mL 07/04/24
Home Medication Changes
Antibiotics: Augmentin through 07/06/24, Oral Vancomycin through 07/11
Eliquis
Pending Results: No
--- NOTE | 2024-07-04 11:08 | CM ---
Pt for discharge today
[facility] to follow
Ostomy supplies given to pt from [facility] Nurse
Brother to transport home
Given IMM
Plan - home with [facility]
[2024-07-04 12:40] VITALS: BP 152/80
== END 2024-07-04 13:54 | disposition home health service (06) | DRG 329 ==
LOC: 2 SOUTH 22:15
PROVIDERS: Hospitalist; Internal Medicine; Obstetrics & Gynecology; Physician Assistant; Registered Nurse; Student in an Organized Health Care Education/Training Program; Surgery; ADMITTING PHYSICIAN Internal Medicine; ATTENDING PHYSICIAN Internal Medicine; CONSULT PHYSICIAN Internal Medicine Cardiovascular Disease; CONSULT PHYSICIAN Surgery; EMERGENCY PHYSICIAN Emergency Medicine; FAMILY PHYSICIAN Nurse Practitioner Family; OTHER PHYSICIAN Internal Medicine Infectious Disease
PROC: 0UT90ZZ Resection of Uterus, Open Approach (ICD-10-PCS; 2024-06-24)
PROC: 0DJD8ZZ Inspection of Lower Intestinal Tract, Via Natural or Artificial Opening Endoscopic (ICD-10-PCS; 2024-06-24)
PROC: 0UT00ZZ Resection of Right Ovary, Open Approach (ICD-10-PCS; 2024-06-24)
PROC: 0W9G0ZZ Drainage of Peritoneal Cavity, Open Approach (ICD-10-PCS; 2024-06-24)
PROC: 0DTN0ZZ Resection of Sigmoid Colon, Open Approach (ICD-10-PCS; 2024-06-24)
PROC: 0D1M0Z4 Bypass Descending Colon to Cutaneous, Open Approach (ICD-10-PCS; 2024-06-24)
PROC: 0TN70ZZ Release Left Ureter, Open Approach (ICD-10-PCS; 2024-06-24)
PROC: 0UT70ZZ Resection of Bilateral Fallopian Tubes, Open Approach (ICD-10-PCS; 2024-06-24)
DX: K57.20 Diverticulitis of large intestine with perforation and abscess without bleeding (principal); A41.9 Sepsis, unspecified organism; K65.1 Peritoneal abscess; D62 Acute posthemorrhagic anemia; N13.30 Unspecified hydronephrosis; K55.9 Vascular disorder of intestine, unspecified; I48.0 Paroxysmal atrial fibrillation; I10 Essential (primary) hypertension; F17.210 Nicotine dependence, cigarettes, uncomplicated; E03.9 Hypothyroidism, unspecified; N73.6 Female pelvic peritoneal adhesions (postinfective); D72.829 Elevated white blood cell count, unspecified; N83.311 Acquired atrophy of right ovary; E83.51 Hypocalcemia; E87.6 Hypokalemia; N70.13 Chronic salpingitis and oophoritis; D25.9 Leiomyoma of uterus, unspecified; G62.89 Other specified polyneuropathies; R00.1 Bradycardia, unspecified; Z79.890 Hormone replacement therapy; Z79.01 Long term (current) use of anticoagulants
CPT/HCPCS: 88305; 88307; 70450; 74176; 74177; 80048; 80053; 81003; 81015; 83605; 83690; 83735; 84100; 84439; 84443; 85014; 85018; 85025; 85027; 86850; 86900; 86901; 93005; 93306; 96361; 96374; 96375; 97110; 97116; 97163; 97167; 97530; 99285; A4300; C1776; Q9967

== ENCOUNTER 2024-10-04 06:29 | Day surgery (SDC) | payer OTHER, SELFPAY | END 2024-10-04 12:51 | disposition home or self-care (01) | LOC: GI 06:29 | PROVIDERS: ATTENDING PHYSICIAN Surgery | DX: K64.8 Other hemorrhoids (principal); K57.30 Diverticulosis of large intestine without perforation or abscess without bleeding; K63.89 Other specified diseases of intestine; K62.89 Other specified diseases of anus and rectum; K57.32 Diverticulitis of large intestine without perforation or abscess without bleeding | CPT/HCPCS: 45378 ==